=== PATIENT | male | born 1975 | race Two or more races ===

== ENCOUNTER 2017-12-17 16:22 | Inpatient (IN) | payer OTHER ==
[2017-12-17 17:15] VITALS: BMI 49.1
--- NOTE | 2017-12-17 20:52 | HP ---
CIWA Score - CIWA Score Nausea/Vomitin-No Nausea/No Vomiting Muscle Tremors: 4-Moderate,w/Arms Extend Anxiety: 2 Agitation: 3 Paroxysmal Sweats: 3 Orientation: 0-Oriented (both lower extremities) Tacttile Disturbances: 2-Mild Itch/Numbness/Burn Auditory Disturbances: 0-None Visual Disturbances: 0-None Headache: 2-Mild CIWA-Ar Total Score: 16 Admission ROS BHS - HPI Chief Complaint: alcohol withdrawal symptoms Allergies/Adverse Reactions: Allergies Allergy/AdvReac Type Severity Reaction Status Date / Time No Known Allergies Allergy Verified 10/09/12 13:10 History of Present Illness: 42 yo male with hx of nicotine, heroin (IV), cocaine and alcohol dependence is here seeking detox. Last detox [place] one month ago[facility] [id number] on methadone 90 mg, last medicated yesterday dose pending verification. Patient was at [facility] 12/16/17 and left AMA. PMHX: HTN, asthma, DM II (oral) meds. Denies any psychiatric history. Denies suicidal / homicidal ideation. Longest period sobriety 27 months. Denies any legal troubles at this time. Exam Limitations: No Limitations - Ebola screening Have you traveled outside of the country in the last 21 days: No (N) Have you had contact with anyone from an Ebola affected area: No Have you been sick,other than usual withdrawal symptoms: No Do you have a fever: No - Review of Systems Constitutional: Chills, Diaphoresis, Changes in sleep, Other (weight gain +30 lbs over two months) EENT: reports: No Symptoms Reported Respiratory: reports: See HPI, SOB with Exertion Cardiac: reports: No Symptoms Reported (lower extremity edema), Other GI: reports: Constipated (last BM two days), Poor Fluid Intake : reports: Frequency Musculoskeletal: reports: Back Pain Integumentary: reports: No Symptoms Reported Neuro: reports: Numbness (both lower extremities), Unsteady Gait (uses cane for ambualtion) Endocrine: reports: See HPI, Increased Thirst Hematology: reports: No Symptoms Reported Psychiatric: reports: Orientated x3, Anxious Other Systems: Reviewed and Negative Patient History - Patient Medical History Hx Anemia: No Hx Asthma: Yes (albuterol) Hx Chronic Obstructive Pulmonary Disease (COPD): No Hx Cancer: No Hx Cardiac Disorders: No Hx Congestive Heart Failure: No Hx Hypertension: Yes (on meds) Hx Hypercholesterolemia: No Hx Pacemaker: No HX Cerebrovascular Accident: No Hx Seizures: No Hx Dementia: No Hx Diabetes: Yes (on metformin ) Hx Gastrointestinal Disorders: No Hx Liver Disease: No Hx Genitourinary Disorders: No Hx Sexually Transmitted Disorders: No Hx Renal Disease (ESRD): No Hx Thyroid Disease: No Hx Human Immunodeficiency Virus (HIV): No (last tested one month with negative results ) Hx Hepatitis C: Yes (second. to iv use of cocaine and heroin ) Hx Depression: No Hx Suicide Attempt: No Hx Bipolar Disorder: No Hx Schizophrenia: No - Patient Surgical History Past Surgical History: No Hx Neurologic Surgery: No Hx Cataract Extraction: No Hx Cardiac Surgery: No Hx Lung Surgery: No Hx Breast Surgery: No Hx Breast Biopsy: No Hx Abdominal Surgery: No Hx Appendectomy: No Hx Cholecystectomy: No Hx Genitourinary Surgery: No Hx Section: No Hx Orthopedic Surgery: No Anesthesia Reaction: No - PPD History Previous Implant?: No Documented Results: Negative w/proof Date: 10/06/12 Results: 0 mm PPD to be Administered?: Yes - Smoking Cessation Smoking history: Current every day smoker Have you smoked in the past 12 months: Yes Aproximately how many cigarettes per day: 20 Cigars Per Day: 0 Hx Chewing Tobacco Use: No Initiated information on smoking cessation: Yes 'Breaking Loose' booklet given: 12/17/17 - Substance & Tx. History Hx Alcohol Use: Yes Hx Substance Use: Yes Substance Use Type: Alcohol, Cocaine, Heroin Hx Substance Use Treatment: Yes ([facility] one month ago.) - Substances Abused heroin Route: Injection Frequency: Daily Amount used: 1 bundle Age of first use: 27 Date of Last Use: 12/17/17 Alcohol Route: Oral Frequency: Daily Amount used: one fifth liquor + 3 x 24 oz malt liquor Age of first use: 18 Date of Last Use: 12/17/17 Cocaine Route: Smoking Frequency: Daily Amount used: $100 Age of first use: 27 Date of Last Use: 12/17/17 Family Disease History - Family Disease History Family Disease History: Diabetes: Mother (diabetes), Heart Disease: Father ( stroke) Admission Physical Exam BHS - Vital Signs Vital Signs: Vital Signs - 24 hr 10/01/18 17:13 Temperature 97.6 F Pulse Rate 84 Respiratory 18 Rate Blood Pressure 141/87 - Physical General Appearance: Yes: Disheveled, Mild Distress, Obese, Sweating, Anxious HEENTM: Yes: EOMI, Hearing grossly Normal, Normal ENT Inspection, Normocephalic , Normal Voice, GALLO, Pharynx Normal, Tm's normal Respiratory: Yes: Chest Non-Tender, Lungs Clear, Normal Breath Sounds, No Respiratory Distress, No Accessory Muscle Use Neck: Yes: Within Normal Limits Breast: Yes: Breast Exam Deferred Cardiology: Yes: Regular Rhythm, Regular Rate Abdominal: Yes: Normal Bowel Sounds, Non Tender, Soft, Protuberent Genitourinary: Yes: Within Normal Limits Back: Yes: Normal Inspection Musculoskeletal: Yes: full range of Motion, Pelvis Stable, Back pain, Other ( uses caen for ambulation) Extremities: Yes: Normal Capillary Refill, Normal Inspection, Normal Range of Motion, Non-Tender Neurological: Yes: safety fire boss II-XII NML intact, Fully Oriented, Alert, Motor Strength 5/5, Normal Response, Depressed Affect Integumentary: Yes: Normal Color, Warm, Diaphoresis Lymphatic: Yes: Within Normal Limits - Diagnostic (1) Alcohol dependence with withdrawal Current Visit: Yes Status: Acute Qualifiers: Complication of substance-induced condition: uncomplicated Qualified Code(s ): F10.230 - Alcohol dependence with withdrawal, uncomplicated (2) Opioid dependence on agonist therapy Current Visit: Yes Status: Chronic Comment: on MMTP methdone 90 mg dose pending verification (3) Cocaine dependence Current Visit: Yes Status: Acute Qualifiers: Substance use status: uncomplicated Qualified Code(s): F14.20 - Cocaine dependence, uncomplicated (4) Diabetes mellitus type 2 in obese Current Visit: Yes Status: Chronic (5) Use of cane as ambulatory aid Current Visit: Yes Status: Chronic (6) Hypertension Current Visit: Yes Status: Chronic Qualifiers: Hypertension type: essential hypertension Qualified Code(s): I10 - Essential (primary) hypertension (7) Acid reflux Current Visit: Yes Status: Chronic Qualifiers: Esophagitis presence: without esophagitis Qualified Code(s): K21.9 - Gastro -esophageal reflux disease without esophagitis (8) Insomnia Current Visit: Yes Status: Chronic Qualifiers: Insomnia type: unspecified Qualified Code(s): G47.00 - Insomnia, unspecified Comment: on trazadone 50 mg HS Cleared for Admission [facility] - Detox or Rehab [facility] Level of Care: Medically Managed Detox Regimen/Protocol: Librium [facility] Breath Alcohol Content Breath Alcohol Content: 0 Urine Drug Screen - Results Drug Screen Negative: No Urine Drug Screen Results: PARUL-Cocaine, OPI-Opiates, BZO-Benzodiazepines, FEN- Fentanyl
[2017-12-17] MEDS ORDERED: LOPERAMIDE HCL 2 MG CAPSULE PO PRN (21:00)
[2017-12-17] MEDS ORDERED: guaiFENesin/D-METHORPHAN HB 10 ML UNIT-DOSE CUPS PO PRN (21:00)
[2017-12-17] MEDS ORDERED: MENTHOL/PHENOL 1 EACH UD MM PRN (21:00)
[2017-12-17] MEDS ORDERED: NICOTINE POLACRILEX 2 MG GUM BC PRN (21:00)
[2017-12-17] MEDS ORDERED: MAGNESIUM CITRATE 300 ML BOTTLE PO PRN (21:00)
[2017-12-17] MEDS ORDERED: IBUPROFEN 400 MG TABLET (FP) PO PRN (21:00)
[2017-12-17] MEDS ORDERED: hydrOXYzine PAMOATE 50 MG CAPSULE (FP) PO PRN (21:00)
[2017-12-17] MEDS ORDERED: P-EPHED 60MG/TRIPROLIDI 2.5MG TABLET PO PRN (21:00)
[2017-12-17] MEDS ORDERED: MAGNESIUM HYDROX 2400MG/30ML ORAL SUSPENSION 30 ML CUP PO PRN (21:00)
[2017-12-17] MEDS ORDERED: ACETAMINOPHEN 325 MG TABLET (FP) PO PRN (21:00)
[2017-12-17] MEDS ORDERED: chlordiazePOXIDE HCL 25 MG CAPSULE PO PRN (21:00)
[2017-12-17] MEDS ORDERED: MAG HYDROX/AL HYDROX/SIMETH 30 ML UNIT-DOSE CUP PO PRN (21:00)
[2017-12-17] MEDS ORDERED: ALBUTEROL SO4 8 GM HFA INHALER IH PRN (21:17)
[2017-12-17] MEDS ORDERED: MELATONIN 5 MG TABLETS PO PRN (22:00)
[2017-12-17] MEDS: chlordiazePOXIDE HCL 25 MG CAPSULE PO SCH (22:34)
[2017-12-17] MEDS: THIAMINE HCL 100 MG TABLET (FP) PO SCH (22:34)
[2017-12-18] MEDS: chlordiazePOXIDE HCL 25 MG CAPSULE PO SCH ×4 (05:22→22:46)
[2017-12-18] MEDS: metFORMIN HCL 500 MG TABLET (FP) PO SCH ×2 (07:52→17:30)
[2017-12-18] MEDS ORDERED: METHADONE HCL 10 MG TABLET PO ONE (08:39)
[2017-12-18] MEDS ORDERED: METHADONE 80 MG, METHADONE 10 MG PO ONE (09:00)
[2017-12-18] MEDS ORDERED: METHADONE HCL 40 MG DISPERSABLE TABLET ONE (10:03)
[2017-12-18] MEDS ORDERED: METHADONE HCL 10 MG TABLET ONE (10:04)
[2017-12-18] MEDS: DOCUSATE SODIUM 100 MG CAPSULE (FP) PO SCH (10:05)
[2017-12-18] MEDS: LISINOPRIL 20 MG TABLET (FP) PO SCH (10:05)
[2017-12-18] MEDS: PRENATAL VITAMINS W/ FOLIC ACID TABLET (FP) PO SCH (10:05)
[2017-12-18] MEDS: PANTOPRAZOLE 40 MG TABLET (FP) PO SCH (10:05)
[2017-12-18] MEDS: NICOTINE 21 MG/24 HOURS TOPICAL PATCH TD SCH (10:06)
[2017-12-18 10:27] LABS: HEMATOCRIT 38.7 % (35.4-49); HEMOGLOBIN 12.9 GM/dL (11.7-16.9); MCH 29.7 pg (25.7-33.7); MCHC 33.3 g/dl (32.0-35.9); MEAN CELL VOLUME 89.2 fl (80-96); MEAN PLT VOLUME 8.7 fl (7.5-11.1); PLATELET COUNT 156 K/MM3 (134-434); RBC 4.34 M/mm3 (4.00-5.60); RDW 12.9 % (11.9-15.9); WHITE BLOOD COUNT 7.5 K/mm3 (4.0-10.0)
--- NOTE | 2017-12-18 10:44 | PN ---
S CIWA - CIWA Score Nausea/Vomitin-No Nausea/No Vomiting Muscle Tremors: 4-Moderate,w/Arms Extend Anxiety: 3 Agitation: 3 Paroxysmal Sweats: 3 Orientation: 0-Oriented Tacttile Disturbances: 0-None Auditory Disturbances: 0-None Visual Disturbances: 0-None Headache: 0-None Present CIWA-Ar Total Score: 13 BHS Progress Note (SOAP) Subjective: sweats shakes interrupted sleep agitation irritable Objective: 12/18/17 10:43 Vital Signs Temperature 97.9 F 12/18/17 09:13 Pulse Rate 88 12/18/17 09:13 Respiratory Rate 18 12/18/17 09:13 Blood Pressure 132/81 12/18/17 09:13 O2 Sat by Pulse Oximetry (%) Laboratory Tests 12/17/17 12/18/17 12/18/17 21:43 05:20 07:30 WBC 7.5 RBC 4.34 Hgb 12.9 Hct 38.7 MCV 89.2 MCH 29.7 MCHC 33.3 RDW 12.9 Plt Count 156 MPV 8.7 D POC Glucometer 103 146 rest of labs pending aaox3 ambulating no acute distress Assessment: 12/18/17 10:43 withdrawal sx Plan: continue detox increase fluids labs pending
[2017-12-18 10:59] LABS: ALBUMIN 3.2 g/dl (3.4-5.0); ALK PHOS 101 U/L (45-117); ANION GAP 11 MMOL/L (8-16); BILIRUBIN,TOTAL 0.5 mg/dL (0.2-1); BLOOD UREA NITROGEN 17 mg/dL (7-18); CALCIUM 9.1 mg/dL (8.5-10.1); CHLORIDE 100 mmol/L (98-107); CO2 29 mmol/L (21-32); CREATININE 0.8 mg/dL (0.55-1.3); GLUCOSE,RANDOM 134 mg/dL (74-106); SGOT/AST 51 U/L (15-37); SGPT/ALT 60 U/L (13-61); SODIUM 140 mmol/L (136-145); TOT PROT 7.4 g/dl (6.4-8.2)
--- NOTE | 2017-12-18 11:06 | EKG ---
Test Reason : Blood Pressure : / mmHG Vent. Rate : 087 BPM Atrial Rate : 087 BPM P-R Int : 152 ms QRS Dur : 092 ms QT Int : 390 ms P-R-T Axes : 072 017 034 degrees QTc Int : 469 ms NORMAL SINUS RHYTHM NORMAL ECG NO PREVIOUS ECGS AVAILABLE Confirmed by Neo Loyd MD ([id number]) on 12/18/2017 11:06:25 AM Referred By: Confirmed By:Neo Loyd MD
[2017-12-18] MEDS: NIFEdipine E.R 60 MG TABLET (UD) PO SCH (11:30)
[2017-12-18 18:07] LABS: URINE APPEARANCE CLEAR; URINE BILIRUBIN NEGATIVE (<2.0 mg/dL); URINE COLOR YELLOW; URINE GLUCOSE (UA) NEGATIVE (NEGATIVE); URINE KETONE NEGATIVE (NEGATIVE); URINE LEUK ESTERASE NEGATIVE (NEGATIVE); URINE NITRITE NEGATIVE (NEGATIVE); URINE UROBILINOGEN 4.0 E.U/dl mg/dL (0.2-1.0)
[2017-12-18 18:16] LABS: URINE PROTEIN 3+ (NEGATIVE)
[2017-12-18 19:40] LABS: EPI CELLS RARE /HPF (FEW)
[2017-12-18] MEDS: THIAMINE HCL 100 MG TABLET (FP) PO SCH (22:47)
[2017-12-19] MEDS ORDERED: METHADONE HCL 40 MG DISPERSABLE TABLET ONE (04:03)
[2017-12-19] MEDS ORDERED: METHADONE HCL 10 MG TABLET ONE (04:03)
[2017-12-19] MEDS: chlordiazePOXIDE HCL 25 MG CAPSULE PO SCH ×3 (05:40→17:37)
[2017-12-19] MEDS: METHADONE 80 MG, METHADONE 10 MG PO SCH (05:41)
[2017-12-19] MEDS ORDERED: METHADONE HCL 40 MG DISPERSABLE TABLET PO SCH (06:00)
[2017-12-19] MEDS: metFORMIN HCL 500 MG TABLET (FP) PO SCH ×2 (07:00→17:30)
[2017-12-19] MEDS: NICOTINE 21 MG/24 HOURS TOPICAL PATCH TD SCH (10:41)
[2017-12-19] MEDS: PANTOPRAZOLE 40 MG TABLET (FP) PO SCH (10:41)
[2017-12-19] MEDS: LISINOPRIL 20 MG TABLET (FP) PO SCH (10:41)
[2017-12-19] MEDS: PRENATAL VITAMINS W/ FOLIC ACID TABLET (FP) PO SCH (10:41)
[2017-12-19] MEDS: DOCUSATE SODIUM 100 MG CAPSULE (FP) PO SCH (10:41)
[2017-12-19] MEDS: NIFEdipine E.R 60 MG TABLET (UD) PO SCH (10:44)
--- NOTE | 2017-12-19 13:15 | PN ---
S CIWA - CIWA Score Nausea/Vomitin-Mild Nausea/No Vomiting Muscle Tremors: 3 Anxiety: 2 Agitation: 2 Paroxysmal Sweats: 1-Minimal Palms Moist Orientation: 0-Oriented Tacttile Disturbances: 1-Very Mild Itch/Numbness Auditory Disturbances: 1-Very Mild Visual Disturbances: 0-None Headache: 0-None Present CIWA-Ar Total Score: 11 BHS Progress Note (SOAP) Subjective: sweat tremor diarrhea anxiety restlessness Objective: 12/19/17 13:14 Vital Signs Temperature 98.2 F 12/19/17 12:56 Pulse Rate 88 12/19/17 12:56 Respiratory Rate 18 12/19/17 12:56 Blood Pressure 138/76 12/19/17 12:56 O2 Sat by Pulse Oximetry (%) Laboratory Last Values WBC 7.5 K/mm3 (4.0-10.0) 12/18/17 07:30 RBC 4.34 M/mm3 (4.00-5.60) 12/18/17 07:30 Hgb 12.9 GM/dL (11.7-16.9) 12/18/17 07:30 Hct 38.7 % (35.4-49) 12/18/17 07:30 MCV 89.2 fl (80-96) 12/18/17 07:30 MCH 29.7 pg (25.7-33.7) 12/18/17 07:30 MCHC 33.3 g/dl (32.0-35.9) 12/18/17 07:30 RDW 12.9 % (11.9-15.9) 12/18/17 07:30 Plt Count 156 K/MM3 (134-434) 12/18/17 07:30 MPV 8.7 fl (7.5-11.1) D 12/18/17 07:30 Sodium 140 mmol/L (136-145) 12/18/17 07:30 Potassium 4.0 mmol/L (3.5-5.1) 12/18/17 07:30 Chloride 100 mmol/L (98-107) 12/18/17 07:30 Carbon Dioxide 29 mmol/L (21-32) 12/18/17 07:30 Anion Gap 11 MMOL/L (8-16) 12/18/17 07:30 BUN 17 mg/dL (7-18) 12/18/17 07:30 Creatinine 0.8 mg/dL (0.55-1.3) 12/18/17 07:30 Creat Clearance w eGFR > 60 (>60) 12/18/17 07:30 POC Glucometer 123 UNITS (80-120) 12/19/17 05:43 Random Glucose 134 mg/dL (74-106) H 12/18/17 07:30 Calcium 9.1 mg/dL (8.5-10.1) 12/18/17 07:30 Total Bilirubin 0.5 mg/dL (0.2-1) 12/18/17 07:30 AST 51 U/L (15-37) H 12/18/17 07:30 ALT 60 U/L (13-61) 12/18/17 07:30 Alkaline Phosphatase 101 U/L (45-117) 12/18/17 07:30 Total Protein 7.4 g/dl (6.4-8.2) 12/18/17 07:30 Albumin 3.2 g/dl (3.4-5.0) L 12/18/17 07:30 Urine Color Yellow 12/18/17 16:30 Urine Appearance Clear 12/18/17 16:30 Urine pH 6.0 (5.0-8.0) 12/18/17 16:30 Ur Specific [place] 1.025 (1.001-1.035) 12/18/17 16:30 Urine Protein 3+ (NEGATIVE) H 12/18/17 16:30 Urine Glucose (UA) Negative (NEGATIVE) 12/18/17 16:30 Urine Ketones Negative (NEGATIVE) 12/18/17 16:30 Urine Blood Negative (NEGATIVE) 12/18/17 16:30 Urine Nitrite Negative (NEGATIVE) 12/18/17 16:30 Urine Bilirubin Negative (<2.0 mg/dL) 12/18/17 16:30 Urine Urobilinogen 4.0 e.u/dl mg/dL (0.2-1.0) 12/18/17 16:30 Ur Leukocyte Esterase Negative (NEGATIVE) 12/18/17 16:30 Urine WBC (Auto) 1 /hpf (3-5) 12/18/17 16:30 Urine RBC (Auto) <1 /hpf (0-3) 12/18/17 16:30 Ur Epithelial Cells Rare /HPF (FEW) 12/18/17 16:30 RPR Titer Nonreactive (NONREACTIVE) 12/18/17 07:30 HIV 1&2 Antibody Screen Negative 12/18/17 07:30 HIV P24 Antigen Negative 12/18/17 07:30 lab noted Assessment: 12/19/17 13:15 withdrawal sx Plan: continue detox
--- NOTE | 2017-12-19 14:38 | CONSULT ---
[facility] Psychiatric Consult - Data Date of interview: 12/19/17 Admission source: [facility] Identifying data: Patient is a 42 year old single male, without children, unemployed, and currently homeless. This is one of multiple admissions for patient. Patient admitted to for alcohol and opiate dependence. Substance Abuse History: Smoking Cessation. Smoking history: Current every day smoker. Have you smoked in the past 12 months: Yes. Aproximately how many cigarettes per day: 20. Cigars Per Day: 0. Hx Chewing Tobacco Use: No. Initiated information on smoking cessation: Yes. 'Breaking Loose' booklet given : 12/17/17. - Substance & Tx. History. Hx Alcohol Use: Yes. Hx Substance Use : Yes. Substance Use Type: Alcohol, Cocaine, Heroin. Hx Substance Use Treatment: Yes ([facility] [place] one month ago.). - Substances Abused. heroin. Route: Injection. Frequency: Daily. Amount used: 1 bundle. Age of first use: 27. Date of Last Use: 12/17/17. Alcohol. Route: Oral. Frequency: Daily. Amount used: one fifth liquor + 3 x 24 oz malt liquor. Age of first use: 18. Date of Last Use: 12/17/17. Cocaine. Route: Smoking. Frequency: Daily. Amount used: $100. Age of first use: 27. Date of Last Use: 12/17/17 Medical History: Asthma, hypertension, diabetes, Hep C Psychiatric History: Patient reports two psychiatric hospitalizations in [facility] (). The first hospitalization was as a teenager due to aggressive behavior and the second hospitalization was due to a suicide attempt via overdose. Most recent Outpatient psychiatric care was two years ago. Patient is currently prescribed trazodone 50mg by his primary care physician. He is also on methadone maintenance of 90mg daily. Patient reports poor sleep. Physical/Sexual Abuse/Trauma History: denies. Mental Status Exam - Mental Status Exam Alert and Oriented to: Time, Place, Person Cognitive Function: Good Patient Appearance: Well Groomed Mood: Hopeful, Euthymic Affect: Mood Congruent Patient Behavior: Appropriate, Cooperative Speech Pattern: Clear, Appropriate Voice Loudness: Normal Thought Process: Intact, Goal Oriented Hallucinations: Denies Suicidal Ideation: Denies Homicidal Ideation: Denies Insight/Judgement: Poor Sleep: Poorly Appetite: Fair Muscle strength/Tone: Normal Psychiatric Findings - Problem List ([place] 1, 2,3) (1) Cocaine dependence Current Visit: Yes Status: Acute Qualifiers: Substance use status: uncomplicated Qualified Code(s): F14.20 - Cocaine dependence, uncomplicated (2) Alcohol dependence with withdrawal Current Visit: Yes Status: Acute Qualifiers: Complication of substance-induced condition: uncomplicated Qualified Code(s ): F10.230 - Alcohol dependence with withdrawal, uncomplicated (3) Insomnia Current Visit: Yes Status: Acute Qualifiers: Insomnia type: unspecified Qualified Code(s): G47.00 - Insomnia, unspecified Comment: on trazadone 50 mg HS (4) Opioid dependence on agonist therapy Current Visit: Yes Status: Chronic Comment: on MMTP methdone 90 mg dose pending verification - Initial Treatment Plan Initial Treatment Plan: Psychoeducation provided. Detoxification in progress. Trazodone 50mg qhs. Benefits and side effects discussed. Verbal consent given.
[2017-12-19] MEDS ORDERED: traZODone HCL 50 MG TABLET (FP) PO SCH (22:00)
[2017-12-19] MEDS: THIAMINE HCL 100 MG TABLET (FP) PO SCH (22:36)
[2017-12-19] MEDS: chlordiazePOXIDE 5 MG CAPSULE PO SCH (22:36)
[2017-12-20] MEDS ORDERED: METHADONE HCL 40 MG DISPERSABLE TABLET ONE (04:30)
[2017-12-20] MEDS ORDERED: METHADONE HCL 10 MG TABLET ONE (04:31)
[2017-12-20] MEDS: METHADONE 80 MG, METHADONE 10 MG PO SCH (05:36)
[2017-12-20] MEDS: chlordiazePOXIDE 5 MG CAPSULE PO SCH ×2 (05:36→10:11)
[2017-12-20] MEDS: metFORMIN HCL 500 MG TABLET (FP) PO SCH (06:39)
--- NOTE | 2017-12-20 09:18 | DS ---
[facility] Detox Discharge Summary Admission Date: 12/17/17 Discharge Date: 12/20/17 - History Present History: Alcohol Dependence Additional Comments: 42 years old make admitted on 12/17/17 for alcohol withdrawal sx reported feeling better that had 17 years of sobriety current relapse x months wants to begin recovery process today multidisciplinary team met and discussed with the patient that opportunity at [facility] patient agrees [facility] - Physical Exam Results Vital Signs: Vital Signs Temperature 98.2 F 12/20/17 09:12 Pulse Rate 94 H 12/20/17 09:12 Respiratory Rate 18 12/20/17 09:12 Blood Pressure 150/95 12/20/17 09:12 O2 Sat by Pulse Oximetry (%) Pertinent Admission Physical Exam Findings: alcohol withdrawal sx Vital Signs Temperature 98.2 F 12/20/17 09:12 Pulse Rate 94 H 12/20/17 09:12 Respiratory Rate 18 12/20/17 09:12 Blood Pressure 150/95 12/20/17 09:12 O2 Sat by Pulse Oximetry (%) Laboratory Last Values WBC 7.5 K/mm3 (4.0-10.0) 12/18/17 07:30 RBC 4.34 M/mm3 (4.00-5.60) 12/18/17 07:30 Hgb 12.9 GM/dL (11.7-16.9) 12/18/17 07:30 Hct 38.7 % (35.4-49) 12/18/17 07:30 MCV 89.2 fl (80-96) 12/18/17 07:30 MCH 29.7 pg (25.7-33.7) 12/18/17 07:30 MCHC 33.3 g/dl (32.0-35.9) 12/18/17 07:30 RDW 12.9 % (11.9-15.9) 12/18/17 07:30 Plt Count 156 K/MM3 (134-434) 12/18/17 07:30 MPV 8.7 fl (7.5-11.1) D 12/18/17 07:30 Sodium 140 mmol/L (136-145) 12/18/17 07:30 Potassium 4.0 mmol/L (3.5-5.1) 12/18/17 07:30 Chloride 100 mmol/L (98-107) 12/18/17 07:30 Carbon Dioxide 29 mmol/L (21-32) 12/18/17 07:30 Anion Gap 11 MMOL/L (8-16) 12/18/17 07:30 BUN 17 mg/dL (7-18) 12/18/17 07:30 Creatinine 0.8 mg/dL (0.55-1.3) 12/18/17 07:30 Creat Clearance w eGFR > 60 (>60) 12/18/17 07:30 POC Glucometer 166 UNITS (80-120) 12/20/17 05:39 Random Glucose 134 mg/dL (74-106) H 12/18/17 07:30 Calcium 9.1 mg/dL (8.5-10.1) 12/18/17 07:30 Total Bilirubin 0.5 mg/dL (0.2-1) 12/18/17 07:30 AST 51 U/L (15-37) H 12/18/17 07:30 ALT 60 U/L (13-61) 12/18/17 07:30 Alkaline Phosphatase 101 U/L (45-117) 12/18/17 07:30 Total Protein 7.4 g/dl (6.4-8.2) 12/18/17 07:30 Albumin 3.2 g/dl (3.4-5.0) L 12/18/17 07:30 Urine Color Yellow 12/18/17 16:30 Urine Appearance Clear 12/18/17 16:30 Urine pH 6.0 (5.0-8.0) 12/18/17 16:30 Ur Specific [place] 1.025 (1.001-1.035) 12/18/17 16:30 Urine Protein 3+ (NEGATIVE) H 12/18/17 16:30 Urine Glucose (UA) Negative (NEGATIVE) 12/18/17 16:30 Urine Ketones Negative (NEGATIVE) 12/18/17 16:30 Urine Blood Negative (NEGATIVE) 12/18/17 16:30 Urine Nitrite Negative (NEGATIVE) 12/18/17 16:30 Urine Bilirubin Negative (<2.0 mg/dL) 12/18/17 16:30 Urine Urobilinogen 4.0 e.u/dl mg/dL (0.2-1.0) 12/18/17 16:30 Ur Leukocyte Esterase Negative (NEGATIVE) 12/18/17 16:30 Urine WBC (Auto) 1 /hpf (3-5) 12/18/17 16:30 Urine RBC (Auto) <1 /hpf (0-3) 12/18/17 16:30 Ur Epithelial Cells Rare /HPF (FEW) 12/18/17 16:30 RPR Titer Nonreactive (NONREACTIVE) 12/18/17 07:30 HIV 1&2 Antibody Screen Negative 12/18/17 07:30 HIV P24 Antigen Negative 12/18/17 07:30 lab noted - Treatment Hospital Course: Detox Protocol Followed, Detoxed Safely, Responded well, Discharged Condition Good, Rehab Referral Accepted Patient has Accepted a Rehab Referral to: [facility] - Medication Discharge Medications: Ambulatory Orders Albuterol Sulfate Inhaler - [Ventolin HFA Inhaler -] 2 inh IH Q4H PRN 12/17/17 Docusate Sodium [Colace] 100 mg PO DAILY 12/17/17 Lisinopril [Prinivil] 40 mg PO DAILY 12/17/17 Metformin HCl [Glucophage] 1,000 mg PO BID 12/17/17 Nifedipine ER [Procardia XL -] 60 mg PO DAILY 12/17/17 Pantoprazole Sodium 40 mg PO DAILY 12/17/17 traZODone HCL [Trazodone HCl] 50 mg PO HS 12/17/17 - Diagnosis (1) History of diabetes mellitus Current Visit: Yes Status: Resolved (2) Alcohol dependence with withdrawal Current Visit: Yes Status: Acute Qualifiers: Complication of substance-induced condition: uncomplicated Qualified Code(s ): F10.230 - Alcohol dependence with withdrawal, uncomplicated (3) Acid reflux Current Visit: Yes Status: Chronic Qualifiers: Esophagitis presence: without esophagitis Qualified Code(s): K21.9 - Gastro -esophageal reflux disease without esophagitis (4) Hypertension Current Visit: Yes Status: Chronic Qualifiers: Hypertension type: essential hypertension Qualified Code(s): I10 - Essential (primary) hypertension (5) Use of cane as ambulatory aid Current Visit: Yes Status: Chronic (6) Opioid dependence on agonist therapy Current Visit: Yes Status: Chronic - AMA Did Patient Leave Against Medical Advice: No
[2017-12-20] MEDS: NICOTINE 21 MG/24 HOURS TOPICAL PATCH TD SCH (10:11)
[2017-12-20] MEDS: PRENATAL VITAMINS W/ FOLIC ACID TABLET (FP) PO SCH (10:11)
[2017-12-20] MEDS: LISINOPRIL 20 MG TABLET (FP) PO SCH (10:11)
[2017-12-20] MEDS: PANTOPRAZOLE 40 MG TABLET (FP) PO SCH (10:11)
[2017-12-20] MEDS: DOCUSATE SODIUM 100 MG CAPSULE (FP) PO SCH (10:11)
[2017-12-20] MEDS: NIFEdipine E.R 60 MG TABLET (UD) PO SCH (12:01)
[2017-12-20 13:35] VITALS: BP 142/87; PULSE 88; TEMP 98.6
[2017-12-20] MEDS ORDERED: chlordiazePOXIDE HCL 10 MG CAPSULE PO SCH (23:00)
== END 2017-12-20 13:30 | disposition other institution (70) | DRG 773 ==
LOC: YASAS 16:22 → Y6N 21:25
PROC: HZ2ZZZZ Detoxification Services for Substance Abuse Treatment (ICD-10-PCS; principal; 2017-12-17)
DX: F10.230 Alcohol dependence with withdrawal, uncomplicated (principal); F14.20 Cocaine dependence, uncomplicated; F11.20 Opioid dependence, uncomplicated; G47.00 Insomnia, unspecified; B18.2 Chronic viral hepatitis C; I10 Essential (primary) hypertension; E11.9 Type 2 diabetes mellitus without complications; Z79.84 Long term (current) use of oral hypoglycemic drugs; R26.89 Other abnormalities of gait and mobility; Z99.89 Dependence on other enabling machines and devices
CPT/HCPCS: 36415; 80053; 81003; 81015; 82962; 85027; 86593; 87389; 93005; 93010

== ENCOUNTER 2017-12-20 13:41 | Inpatient (IN) | payer OTHER ==
--- NOTE | 2017-12-20 10:45 | HP ---
[facility] Rehab Assess/Revision - Admission History Admitted to Rehab from: [facility] Date of Admission to Rehab: 12/20/17 - Findings Detox History & Physical reviewed: Yes Concur with findings: Yes Comments/Additional Findings: transferred from detox to rehab admission as per protocol Inpatient Rehab Admission - Initial Determination Are CD services needed?: Yes Free of communicable disease: Yes Not in need of hospitalization: Yes - Rehab Admission Criteria Previous failed treatment: Yes Poor recovery environment: Yes Comorbidities: Yes Lacks judgement: No Patient is meeting Inpatient Rehab admission criteria:: Yes
[~2017-12-20 13:41] MED LIST: ALBUTEROL SO4 8 GM HFA INHALER IH PRN; LOPERAMIDE HCL 2 MG CAPSULE PO PRN; MAG HYDROX/AL HYDROX/SIMETH 30 ML UNIT-DOSE CUP PO PRN; MENTHOL/PHENOL 1 EACH UD MM PRN; NICOTINE POLACRILEX 2 MG GUM BUC PRN; P-EPHED 60MG/TRIPROLIDI 2.5MG TABLET PO PRN; guaiFENesin/D-METHORPHAN HB 10 ML UNIT-DOSE CUPS PO PRN
[2017-12-20] MEDS: metFORMIN HCL 500 MG TABLET (FP) PO SCH (17:01)
[2017-12-20] MEDS: MELATONIN 5 MG TABLETS PO PRN (21:45)
[2017-12-20] MEDS: THIAMINE HCL 100 MG TABLET (FP) PO SCH (21:45)
[2017-12-20] MEDS: IBUPROFEN 400 MG TABLET (FP) PO PRN (21:45)
[2017-12-21] MEDS ORDERED: METHADONE HCL 10 MG TABLET ONE (04:41)
[2017-12-21] MEDS ORDERED: METHADONE HCL 40 MG DISPERSABLE TABLET ONE (04:41)
[2017-12-21] MEDS ORDERED: METHADONE HCL 40 MG DISPERSABLE TABLET PO SCH (06:00)
[2017-12-21] MEDS: metFORMIN HCL 500 MG TABLET (FP) PO SCH ×2 (06:39→16:36)
[2017-12-21] MEDS: METHADONE 80 MG, METHADONE 10 MG PO SCH (06:42)
--- NOTE | 2017-12-21 06:45 | HP ---
Psychiatrist Admission - Data Date of interview: 12/21/17 Admission source: [facility] Identifying data: This is the second [facility] Inpatient Rehabilitation admission for this 42 years old single male, father of a 18 years old son, unemployed on public assistance, homeless Medical History: Significant for bronchial asthma, hypertension, type 2 diabetes mellitus and hepatitis C. Patient is on methadone 90 mg/day. Smokes cigarettes 1 ppd Psychiatric History: Patient reports two psychiatric hospitalizations in [facility] () for depression. The first hospitalization was as a teenager due to aggressive behavior and the second hospitalization was due to a suicide attempt via overdose. Most recent Outpatient psychiatric care was two years ago. Patient is currently prescribed trazodone 50 mg by his primary care physician. He was seen by [facility] on 12/19/17 while in detox and was continued on his medication. Patient reports poor sleep. Physical/Sexual Abuse/Trauma History: Denies history ofemotional, physical or sexual abuse as well as DV relationship. No service Additional Comment: Reports history of 3-4 previous misdemeanor arrests Vital Signs: Vital Signs - 24 hr 12/21/17 12/21/17 00:30 03:30 Respiratory 18 20 Rate Allergies/Adverse Reactions: Allergies Allergy/AdvReac Type Severity Reaction Status Date / Time No Known Allergies Allergy Verified 12/17/17 21:41 Date of last physical exam: 12/17/17 - Substance Abuse/Tx History Hx Alcohol Use: Yes Hx Substance Use: Yes (Currently attends [facility]) Substance Use Type: Alcohol (Started drinking alcohol at age 18, consumes a fifth of liquor & 3x 24oz of malt liquor daily. Last drank on 12/17/17), Cocaine (Started smoking crack cocaine at age 27, consumes $100 worth daily. Last smoked on 12/17/17), Heroin (Started using heroin at age 27, consumes 10 bags daily. Last used on 12/17/17) Hx Substance Use Treatment: Yes (2 previous inpt detox & one inpt rehab admissions @ [facility]) Mental Status Exam - Mental Status Exam Alert and Oriented to: Time, Place, Person Cognitive Function: Fair Patient Appearance: Well Groomed Mood: Depressed Affect: Appropriate Speech Pattern: Clear Voice Loudness: Normal Thought Process: Intact, Goal Oriented Thought Disorder: Not Present Hallucinations: Denies Suicidal Ideation: Denies Homicidal Ideation: Denies Insight/Judgement: Fair Sleep: Poorly Appetite: Good Muscle strength/Tone: Normal Gait/Station: Normal Psychiatric Findings - Problem List ([place] 1, 2,3) (1) Alcohol dependence Current Visit: Yes Status: Acute (2) Cocaine dependence Current Visit: No Status: Acute Qualifiers: Substance use status: uncomplicated Qualified Code(s): F14.20 - Cocaine dependence, uncomplicated (3) Opioid dependence on agonist therapy Current Visit: No Status: Chronic Comment: on MMTP methdone 90 mg dose pending verification (4) Nicotine dependence Current Visit: Yes Status: Chronic (5) Substance induced mood disorder Current Visit: Yes Status: Acute (6) Substance-induced sleep disorder Current Visit: Yes Status: Acute (7) Diabetes mellitus type 2 in obese Current Visit: No Status: Chronic (8) Hypertension Current Visit: No Status: Chronic Qualifiers: Hypertension type: essential hypertension Qualified Code(s): I10 - Essential (primary) hypertension (9) Asthma Current Visit: Yes Status: Chronic (10) Hepatitis C Current Visit: Yes Status: Chronic - Initial Treatment Plan Initial Treatment Plan: 1) Continue Trazadone 50 mg po HS. 2) Monitor progress
[2017-12-21] MEDS: DOCUSATE SODIUM 100 MG CAPSULE (FP) PO SCH (10:27)
[2017-12-21] MEDS: NIFEdipine E.R 60 MG TABLET (UD) PO SCH (10:27)
[2017-12-21] MEDS: PRENATAL VITAMINS W/ FOLIC ACID TABLET (FP) PO SCH (10:27)
[2017-12-21] MEDS: PANTOPRAZOLE 40 MG TABLET (FP) PO SCH (10:27)
[2017-12-21] MEDS: LISINOPRIL 20 MG TABLET (FP) PO SCH (10:27)
[2017-12-21] MEDS: NICOTINE 14 MG/24 HOURS TOPICAL PATCH TD PRN (10:29)
[2017-12-21] MEDS ORDERED: FLU VACCINE QUAD 60 MCG/0.5 ML (MDV 18-19) IM ONE (12:00)
[2017-12-21] MEDS: traZODone HCL 50 MG TABLET (FP) PO SCH (21:02)
[2017-12-21] MEDS: THIAMINE HCL 100 MG TABLET (FP) PO SCH (21:02)
[2017-12-22] MEDS ORDERED: METHADONE HCL 10 MG TABLET ONE (04:03)
[2017-12-22] MEDS ORDERED: METHADONE HCL 40 MG DISPERSABLE TABLET ONE (04:03)
[2017-12-22] MEDS: metFORMIN HCL 500 MG TABLET (FP) PO SCH ×2 (06:41→17:00)
[2017-12-22] MEDS: METHADONE 80 MG, METHADONE 10 MG PO SCH (06:41)
[2017-12-22] MEDS: PRENATAL VITAMINS W/ FOLIC ACID TABLET (FP) PO SCH (09:54)
[2017-12-22] MEDS: NIFEdipine E.R 60 MG TABLET (UD) PO SCH (09:54)
[2017-12-22] MEDS: PANTOPRAZOLE 40 MG TABLET (FP) PO SCH (09:54)
[2017-12-22] MEDS: LISINOPRIL 20 MG TABLET (FP) PO SCH (09:54)
[2017-12-22] MEDS: DOCUSATE SODIUM 100 MG CAPSULE (FP) PO SCH (09:54)
[2017-12-22] MEDS: THIAMINE HCL 100 MG TABLET (FP) PO SCH (21:00)
[2017-12-22] MEDS: traZODone HCL 50 MG TABLET (FP) PO SCH (21:01)
[2017-12-23] MEDS: ACETAMINOPHEN 325 MG TABLET (FP) PO PRN (02:15)
[2017-12-23] MEDS ORDERED: METHADONE HCL 10 MG TABLET ONE (03:44)
[2017-12-23] MEDS ORDERED: METHADONE HCL 40 MG DISPERSABLE TABLET ONE (03:44)
[2017-12-23] MEDS: METHADONE 80 MG, METHADONE 10 MG PO SCH (06:45)
[2017-12-23] MEDS: metFORMIN HCL 500 MG TABLET (FP) PO SCH ×2 (06:47→18:13)
[2017-12-23] MEDS: NIFEdipine E.R 60 MG TABLET (UD) PO SCH (09:42)
[2017-12-23] MEDS: PANTOPRAZOLE 40 MG TABLET (FP) PO SCH (09:42)
[2017-12-23] MEDS: PRENATAL VITAMINS W/ FOLIC ACID TABLET (FP) PO SCH (09:42)
[2017-12-23] MEDS: DOCUSATE SODIUM 100 MG CAPSULE (FP) PO SCH (09:42)
[2017-12-23] MEDS: LISINOPRIL 20 MG TABLET (FP) PO SCH (09:42)
[2017-12-23] MEDS: MELATONIN 5 MG TABLETS PO PRN (21:19)
[2017-12-23] MEDS: THIAMINE HCL 100 MG TABLET (FP) PO SCH (21:19)
[2017-12-23] MEDS: traZODone HCL 50 MG TABLET (FP) PO SCH (21:19)
[2017-12-24] MEDS ORDERED: METHADONE HCL 10 MG TABLET ONE (05:54)
[2017-12-24] MEDS ORDERED: METHADONE HCL 40 MG DISPERSABLE TABLET ONE (05:55)
[2017-12-24] MEDS: metFORMIN HCL 500 MG TABLET (FP) PO SCH ×2 (06:39→17:05)
[2017-12-24] MEDS: METHADONE 80 MG, METHADONE 10 MG PO SCH (06:39)
[2017-12-24] MEDS: DOCUSATE SODIUM 100 MG CAPSULE (FP) PO SCH (10:05)
[2017-12-24] MEDS: PRENATAL VITAMINS W/ FOLIC ACID TABLET (FP) PO SCH (10:05)
[2017-12-24] MEDS: NIFEdipine E.R 60 MG TABLET (UD) PO SCH (10:05)
[2017-12-24] MEDS: LISINOPRIL 20 MG TABLET (FP) PO SCH (10:05)
[2017-12-24] MEDS: PANTOPRAZOLE 40 MG TABLET (FP) PO SCH (10:05)
[2017-12-24] MEDS: MAGNESIUM HYDROX 2400MG/30ML ORAL SUSPENSION 30 ML CUP PO PRN (10:08)
--- NOTE | 2017-12-24 12:13 | PN ---
[facility] Progress Note (SOAP) Subjective: c/o swelling of both feet. Was on hydrochlorothiazide 25 mg PO but did not mention when came in for treatment. Objective: A&O x3. BLE 1+ edema toe to below knee. Lungs CTA. 12/24/17 12:15 Vital Signs - 8 hr 12/24/17 12/24/17 07:00 09:30 Temperature 98 F Pulse Rate 83 105 H Respiratory 20 18 Rate Blood Pressure 150/82 169/98 Assessment: Morbidly obese. BLE edema. Asthma 12/24/17 12:19 Plan: Encourage to f/u w/ PCP and cardiology post discharge. Encourage elevation of feet while in bed. Encourage to monitor calorie intake. Start HCTZ 12.5 mg PO BID
[2017-12-24] MEDS: IBUPROFEN 400 MG TABLET (FP) PO PRN (13:09)
[2017-12-24] MEDS: ACETAMINOPHEN 325 MG TABLET (FP) PO PRN (17:06)
[2017-12-24] MEDS: HYDROCHLOROTHIAZIDE 12.5 MG CAPSULE (FP) PO SCH (18:26)
[2017-12-24] MEDS: THIAMINE HCL 100 MG TABLET (FP) PO SCH (22:07)
[2017-12-24] MEDS: MELATONIN 5 MG TABLETS PO PRN (22:07)
[2017-12-24] MEDS: traZODone HCL 50 MG TABLET (FP) PO SCH (22:07)
[2017-12-25] MEDS ORDERED: METHADONE HCL 40 MG DISPERSABLE TABLET ONE (06:12)
[2017-12-25] MEDS ORDERED: METHADONE HCL 10 MG TABLET ONE (06:12)
[2017-12-25] MEDS: METHADONE 80 MG, METHADONE 10 MG PO SCH (06:23)
[2017-12-25] MEDS: metFORMIN HCL 500 MG TABLET (FP) PO SCH ×2 (06:24→17:05)
[2017-12-25] MEDS: LISINOPRIL 20 MG TABLET (FP) PO SCH (09:38)
[2017-12-25] MEDS: NIFEdipine E.R 60 MG TABLET (UD) PO SCH (09:39)
[2017-12-25] MEDS: HYDROCHLOROTHIAZIDE 12.5 MG CAPSULE (FP) PO SCH ×2 (09:39→17:05)
[2017-12-25] MEDS: PANTOPRAZOLE 40 MG TABLET (FP) PO SCH (09:39)
[2017-12-25] MEDS: DOCUSATE SODIUM 100 MG CAPSULE (FP) PO SCH (09:39)
[2017-12-25] MEDS: PRENATAL VITAMINS W/ FOLIC ACID TABLET (FP) PO SCH (09:39)
[2017-12-25] MEDS: MAGNESIUM CITRATE 300 ML BOTTLE PO PRN (19:16)
[2017-12-25] MEDS: traZODone HCL 50 MG TABLET (FP) PO SCH (22:04)
[2017-12-25] MEDS: MELATONIN 5 MG TABLETS PO PRN (22:04)
[2017-12-25] MEDS: THIAMINE HCL 100 MG TABLET (FP) PO SCH (22:04)
[2017-12-26] MEDS ORDERED: METHADONE HCL 10 MG TABLET ONE (03:00)
[2017-12-26] MEDS ORDERED: METHADONE HCL 40 MG DISPERSABLE TABLET ONE (03:00)
[2017-12-26] MEDS: metFORMIN HCL 500 MG TABLET (FP) PO SCH ×2 (06:28→17:27)
[2017-12-26] MEDS: METHADONE 80 MG, METHADONE 10 MG PO SCH (06:28)
[2017-12-26] MEDS: HYDROCHLOROTHIAZIDE 12.5 MG CAPSULE (FP) PO SCH ×2 (10:17→17:27)
[2017-12-26] MEDS: PANTOPRAZOLE 40 MG TABLET (FP) PO SCH (10:17)
[2017-12-26] MEDS: LISINOPRIL 20 MG TABLET (FP) PO SCH (10:17)
[2017-12-26] MEDS: NIFEdipine E.R 60 MG TABLET (UD) PO SCH (10:17)
[2017-12-26] MEDS: PRENATAL VITAMINS W/ FOLIC ACID TABLET (FP) PO SCH (10:18)
[2017-12-26] MEDS: DOCUSATE SODIUM 100 MG CAPSULE (FP) PO SCH (10:18)
[2017-12-26] MEDS: NICOTINE 14 MG/24 HOURS TOPICAL PATCH TD PRN (10:20)
[2017-12-26] MEDS: MAGNESIUM CITRATE 300 ML BOTTLE PO PRN (18:15)
[2017-12-26] MEDS: traZODone HCL 50 MG TABLET (FP) PO SCH (21:34)
[2017-12-26] MEDS: THIAMINE HCL 100 MG TABLET (FP) PO SCH (21:34)
[2017-12-27] MEDS: ACETAMINOPHEN 325 MG TABLET (FP) PO PRN ×2 (02:46→11:16)
[2017-12-27] MEDS ORDERED: METHADONE HCL 10 MG TABLET ONE (03:17)
[2017-12-27] MEDS ORDERED: METHADONE HCL 40 MG DISPERSABLE TABLET ONE (03:17)
[2017-12-27] MEDS: METHADONE 80 MG, METHADONE 10 MG PO SCH (06:15)
[2017-12-27] MEDS: metFORMIN HCL 500 MG TABLET (FP) PO SCH ×2 (06:17→16:59)
[2017-12-27] MEDS: IBUPROFEN 400 MG TABLET (FP) PO PRN ×2 (06:18→22:18)
[2017-12-27] MEDS: NIFEdipine E.R 60 MG TABLET (UD) PO SCH (09:58)
[2017-12-27] MEDS: HYDROCHLOROTHIAZIDE 12.5 MG CAPSULE (FP) PO SCH ×2 (09:58→16:59)
[2017-12-27] MEDS: LISINOPRIL 20 MG TABLET (FP) PO SCH (09:58)
[2017-12-27] MEDS: PRENATAL VITAMINS W/ FOLIC ACID TABLET (FP) PO SCH (09:58)
[2017-12-27] MEDS: DOCUSATE SODIUM 100 MG CAPSULE (FP) PO SCH ×3 (09:58→22:16)
[2017-12-27] MEDS: PANTOPRAZOLE 40 MG TABLET (FP) PO SCH (09:58)
--- NOTE | 2017-12-27 13:58 | PN ---
S Progress Note (SOAP) Subjective: PT C/O LOWER EXTREMITY/THIGH PAIN AND SWELLING, LEFT > RIGHT X 4 DAYS AND WANTS TO BE CHECKED OUT AT THE ER. PT REPORTS HE WEARS STOCKINGS AT HOME BUT DID NOT BRING IT. PT DECLINED ANY OTHER MEASURES ON THE UNIT AND WANTS TO GO TO THE ER. PT IS ALERT O X 3. OUT OF BED WITH CANE. . Objective: 12/27/17 14:58 Vital Signs - 24 hr 12/27/17 12/27/17 12/27/17 03:30 06:56 09:30 Temperature 97.4 F L Pulse Rate 88 98 H Respiratory 16 20 18 Rate Blood Pressure 150/83 151/95 Laboratory Tests 12/20/17 12/21/17 12/21/17 17:00 06:39 09:05 POC Glucometer 108 162 Hemoglobin A1c % 6.7 H 12/21/17 12/22/17 12/22/17 16:35 06:40 16:47 POC Glucometer 175 150 175 Hemoglobin A1c % 12/23/17 12/23/17 12/23/17 06:46 18:12 20:47 POC Glucometer 211 233 178 Hemoglobin A1c % 12/24/17 12/24/17 12/25/17 06:40 17:04 06:24 POC Glucometer 149 159 192 Hemoglobin A1c % 12/25/17 12/26/17 12/26/17 17:05 06:27 17:27 POC Glucometer 184 267 185 Hemoglobin A1c % 12/27/17 06:16 POC Glucometer 200 Hemoglobin A1c % BOTH ANKLES WITH SWELLING. SLIGHT PAIN ON PALPATION OF BOTH THIGHS. NO REDNESS OR SWELLING. Assessment: 12/27/17 14:25 ANKLE EDEMA LOWER EXTREMITIES/THIGH PAIN Plan: LASIX 40 MG PO NOW. DARRICK STOCKINGS APPLY PRN FLEXERIL 10 MG PO TID PRN ELEVATE LEGS WHILE IN BED. OOB TOLERATED WITH CANE REFER TO [facility] ER IF STILL NOT FEELING BETTER. ADDENDUM:PT DECLINED TO GO TO THE ER AND WANTS TREATED HERE FOR NOW.
[2017-12-27] MEDS ORDERED: FUROSEMIDE 40 MG TABLET (FP) PO ONE (15:02)
[2017-12-27] MEDS: CYCLOBENZAPRINE HCL 10 MG TABLET (FP) PO PRN ×2 (15:28→22:16)
[2017-12-27] MEDS: THIAMINE HCL 100 MG TABLET (FP) PO SCH (22:16)
[2017-12-27] MEDS: traZODone HCL 50 MG TABLET (FP) PO SCH (22:16)
[2017-12-28] MEDS: ACETAMINOPHEN 325 MG TABLET (FP) PO PRN (00:31)
[2017-12-28] MEDS ORDERED: METHADONE HCL 10 MG TABLET PO SCH (06:15)
[2017-12-28] MEDS ORDERED: METHADONE 80 MG, METHADONE 10 MG PO SCH (06:15)
[2017-12-28] MEDS ORDERED: METHADONE HCL 40 MG DISPERSABLE TABLET ONE (06:30)
[2017-12-28] MEDS ORDERED: METHADONE HCL 10 MG TABLET ONE (06:30)
[2017-12-28] MEDS: METHADONE 80 MG, METHADONE 10 MG PO SCH (06:40)
[2017-12-28] MEDS: metFORMIN HCL 500 MG TABLET (FP) PO SCH ×2 (06:41→17:16)
[2017-12-28] MEDS: DOCUSATE SODIUM 100 MG CAPSULE (FP) PO SCH ×3 (06:41→22:03)
[2017-12-28] MEDS: PANTOPRAZOLE 40 MG TABLET (FP) PO SCH (10:02)
[2017-12-28] MEDS: LISINOPRIL 20 MG TABLET (FP) PO SCH (10:02)
[2017-12-28] MEDS: NIFEdipine E.R 60 MG TABLET (UD) PO SCH (10:02)
[2017-12-28] MEDS: HYDROCHLOROTHIAZIDE 12.5 MG CAPSULE (FP) PO SCH ×2 (10:02→17:18)
[2017-12-28] MEDS: PRENATAL VITAMINS W/ FOLIC ACID TABLET (FP) PO SCH (10:02)
[2017-12-28] MEDS: IBUPROFEN 400 MG TABLET (FP) PO PRN (17:18)
[2017-12-28] MEDS: traZODone HCL 50 MG TABLET (FP) PO SCH (22:03)
[2017-12-28] MEDS: THIAMINE HCL 100 MG TABLET (FP) PO SCH (22:03)
[2017-12-28] MEDS: CYCLOBENZAPRINE HCL 10 MG TABLET (FP) PO PRN (22:03)
[2017-12-29] MEDS ORDERED: METHADONE HCL 10 MG TABLET ONE (02:57)
[2017-12-29] MEDS ORDERED: METHADONE HCL 40 MG DISPERSABLE TABLET ONE (02:57)
[2017-12-29] MEDS: METHADONE 80 MG, METHADONE 10 MG PO SCH (06:25)
[2017-12-29] MEDS: DOCUSATE SODIUM 100 MG CAPSULE (FP) PO SCH ×3 (06:27→21:30)
[2017-12-29] MEDS: metFORMIN HCL 500 MG TABLET (FP) PO SCH ×2 (06:27→16:59)
[2017-12-29] MEDS: LISINOPRIL 20 MG TABLET (FP) PO SCH (09:53)
[2017-12-29] MEDS: NIFEdipine E.R 60 MG TABLET (UD) PO SCH (09:53)
[2017-12-29] MEDS: PRENATAL VITAMINS W/ FOLIC ACID TABLET (FP) PO SCH (09:53)
[2017-12-29] MEDS: PANTOPRAZOLE 40 MG TABLET (FP) PO SCH (09:53)
[2017-12-29] MEDS: HYDROCHLOROTHIAZIDE 12.5 MG CAPSULE (FP) PO SCH ×2 (09:54→17:14)
[2017-12-29] MEDS: IBUPROFEN 400 MG TABLET (FP) PO PRN (14:46)
[2017-12-29] MEDS: THIAMINE HCL 100 MG TABLET (FP) PO SCH (21:30)
[2017-12-29] MEDS: CYCLOBENZAPRINE HCL 10 MG TABLET (FP) PO PRN (21:30)
[2017-12-29] MEDS: traZODone HCL 50 MG TABLET (FP) PO SCH (21:30)
[2017-12-29] MEDS: MELATONIN 5 MG TABLETS PO PRN (21:30)
[2017-12-30] MEDS ORDERED: METHADONE HCL 10 MG TABLET ONE (05:20)
[2017-12-30] MEDS ORDERED: METHADONE HCL 40 MG DISPERSABLE TABLET ONE (05:20)
[2017-12-30] MEDS: metFORMIN HCL 500 MG TABLET (FP) PO SCH ×2 (06:39→17:12)
[2017-12-30] MEDS: DOCUSATE SODIUM 100 MG CAPSULE (FP) PO SCH ×3 (06:39→22:13)
[2017-12-30] MEDS: METHADONE 80 MG, METHADONE 10 MG PO SCH (06:39)
[2017-12-30] MEDS: PANTOPRAZOLE 40 MG TABLET (FP) PO SCH (10:08)
[2017-12-30] MEDS: PRENATAL VITAMINS W/ FOLIC ACID TABLET (FP) PO SCH (10:08)
[2017-12-30] MEDS: NIFEdipine E.R 60 MG TABLET (UD) PO SCH (10:08)
[2017-12-30] MEDS: HYDROCHLOROTHIAZIDE 12.5 MG CAPSULE (FP) PO SCH ×2 (10:08→18:03)
[2017-12-30] MEDS: LISINOPRIL 20 MG TABLET (FP) PO SCH (10:08)
[2017-12-30] MEDS: IBUPROFEN 400 MG TABLET (FP) PO PRN (10:09)
[2017-12-30] MEDS: traZODone HCL 50 MG TABLET (FP) PO SCH (22:13)
[2017-12-30] MEDS: THIAMINE HCL 100 MG TABLET (FP) PO SCH (22:13)
[2017-12-30] MEDS: CYCLOBENZAPRINE HCL 10 MG TABLET (FP) PO PRN (22:15)
[2017-12-31] MEDS ORDERED: METHADONE HCL 40 MG DISPERSABLE TABLET ONE (03:14)
[2017-12-31] MEDS ORDERED: METHADONE HCL 10 MG TABLET ONE (03:14)
[2017-12-31] MEDS: DOCUSATE SODIUM 100 MG CAPSULE (FP) PO SCH ×3 (06:51→21:28)
[2017-12-31] MEDS: METHADONE 80 MG, METHADONE 10 MG PO SCH (06:51)
[2017-12-31] MEDS: metFORMIN HCL 500 MG TABLET (FP) PO SCH ×2 (06:53→16:56)
[2017-12-31] MEDS: NIFEdipine E.R 60 MG TABLET (UD) PO SCH (10:02)
[2017-12-31] MEDS: LISINOPRIL 20 MG TABLET (FP) PO SCH (10:02)
[2017-12-31] MEDS: PRENATAL VITAMINS W/ FOLIC ACID TABLET (FP) PO SCH (10:02)
[2017-12-31] MEDS: PANTOPRAZOLE 40 MG TABLET (FP) PO SCH (10:02)
[2017-12-31] MEDS: HYDROCHLOROTHIAZIDE 12.5 MG CAPSULE (FP) PO SCH ×2 (10:02→17:04)
[2017-12-31] MEDS: MAGNESIUM HYDROX 2400MG/30ML ORAL SUSPENSION 30 ML CUP PO PRN (10:04)
[2017-12-31] MEDS ORDERED: SODIUM PHOSPHATE/NA BIPHOS 133 ML ENEMA PR ONE (14:15)
[2017-12-31] MEDS: THIAMINE HCL 100 MG TABLET (FP) PO SCH (21:28)
[2017-12-31] MEDS: traZODone HCL 50 MG TABLET (FP) PO SCH (21:28)
[2017-12-31] MEDS: CYCLOBENZAPRINE HCL 10 MG TABLET (FP) PO PRN (21:29)
[2018-01-01] MEDS ORDERED: METHADONE HCL 40 MG DISPERSABLE TABLET ONE (03:15)
[2018-01-01] MEDS ORDERED: METHADONE HCL 10 MG TABLET ONE (03:15)
[2018-01-01] MEDS: METHADONE 80 MG, METHADONE 10 MG PO SCH (06:26)
[2018-01-01] MEDS: DOCUSATE SODIUM 100 MG CAPSULE (FP) PO SCH ×3 (06:28→22:10)
[2018-01-01] MEDS: metFORMIN HCL 500 MG TABLET (FP) PO SCH ×2 (06:28→17:03)
[2018-01-01] MEDS: HYDROCHLOROTHIAZIDE 12.5 MG CAPSULE (FP) PO SCH ×2 (10:11→17:03)
[2018-01-01] MEDS: PANTOPRAZOLE 40 MG TABLET (FP) PO SCH (10:11)
[2018-01-01] MEDS: PRENATAL VITAMINS W/ FOLIC ACID TABLET (FP) PO SCH (10:11)
[2018-01-01] MEDS: LISINOPRIL 20 MG TABLET (FP) PO SCH (10:11)
[2018-01-01] MEDS: NIFEdipine E.R 60 MG TABLET (UD) PO SCH (10:11)
[2018-01-01] MEDS: traZODone HCL 50 MG TABLET (FP) PO SCH (22:10)
[2018-01-01] MEDS: MELATONIN 5 MG TABLETS PO PRN (22:10)
[2018-01-01] MEDS: CYCLOBENZAPRINE HCL 10 MG TABLET (FP) PO PRN (22:10)
[2018-01-01] MEDS: THIAMINE HCL 100 MG TABLET (FP) PO SCH (22:10)
[2018-01-02] MEDS ORDERED: METHADONE HCL 40 MG DISPERSABLE TABLET ONE (05:33)
[2018-01-02] MEDS ORDERED: METHADONE HCL 10 MG TABLET ONE (05:33)
[2018-01-02] MEDS: DOCUSATE SODIUM 100 MG CAPSULE (FP) PO SCH ×3 (06:33→21:02)
[2018-01-02] MEDS: METHADONE 80 MG, METHADONE 10 MG PO SCH (06:34)
[2018-01-02 07:09] VITALS: TEMP 97.3
[2018-01-02] MEDS: metFORMIN HCL 500 MG TABLET (FP) PO SCH ×2 (07:09→17:07)
[2018-01-02] MEDS: HYDROCHLOROTHIAZIDE 12.5 MG CAPSULE (FP) PO SCH ×2 (10:04→17:07)
[2018-01-02] MEDS: NIFEdipine E.R 60 MG TABLET (UD) PO SCH (10:04)
[2018-01-02] MEDS: PANTOPRAZOLE 40 MG TABLET (FP) PO SCH (10:04)
[2018-01-02] MEDS: LISINOPRIL 20 MG TABLET (FP) PO SCH (10:04)
[2018-01-02] MEDS: PRENATAL VITAMINS W/ FOLIC ACID TABLET (FP) PO SCH (10:04)
[2018-01-02] MEDS: traZODone HCL 50 MG TABLET (FP) PO SCH (21:02)
[2018-01-02] MEDS: THIAMINE HCL 100 MG TABLET (FP) PO SCH (21:02)
[2018-01-02] MEDS: CYCLOBENZAPRINE HCL 10 MG TABLET (FP) PO PRN (21:04)
[2018-01-03] MEDS ORDERED: METHADONE HCL 40 MG DISPERSABLE TABLET ONE (05:36)
[2018-01-03] MEDS ORDERED: METHADONE HCL 10 MG TABLET ONE (05:36)
[2018-01-03] MEDS: METHADONE 80 MG, METHADONE 10 MG PO SCH (06:10)
[2018-01-03] MEDS: DOCUSATE SODIUM 100 MG CAPSULE (FP) PO SCH ×3 (06:11→22:08)
[2018-01-03] MEDS: metFORMIN HCL 500 MG TABLET (FP) PO SCH ×2 (06:41→16:59)
--- NOTE | 2018-01-03 08:27 | PN ---
Psychiatric Progress Note Vital Signs: Vital Signs Period Temp Pulse Resp BP Sys/Flores Pulse Ox Last 24 Hr 97.3 F 84-87 18-20 122-156/73-93 Date of Session: 01/03/18 Chief Complaint:: Discharge Note HPI: Patient addressing Alcohol amd Cocaine Dependence comorbid with Opioid Dependence on Agonist Therapy, Nicotine Dependence, Substance-Induced Mood Disorderv and Substance-Induced Sleep Disorder ROS: Type 2 DM, HTN, Asthma, Hep C were medically managed Current Medications: Active Medications Generic Name Dose Route Start Last Admin Trade Name Freq PRN Reason Stop Dose Admin Acetaminophen 650 mg 12/20/17 10:45 12/28/17 00:31 Tylenol - PO 650 mg Q4H PRN Administration FEVER Al Hydroxide/Mg Hydroxide 30 ml 12/20/17 10:45 Mylanta Oral Suspension - PO Q6H PRN DYSPEPSIA Albuterol Sulfate 2 puff 12/20/17 10:47 Ventolin Hfa Inhaler - IH Q4H PRN WHEEZING Cyclobenzaprine HCl 10 mg 12/27/17 15:02 01/02/18 21:04 Flexeril - PO 10 mg TID PRN Administration MUSCLE SPASMS Docusate Sodium 100 mg 12/27/17 14:00 01/03/18 06:11 Colace - PO 100 mg TID MARIA GUADALUPE Administration Eucalyptus/Menthol/Phenol/Sorbitol 1 each 12/20/17 10:45 Cepastat Lozenge - MM Q4H PRN SORE THROAT Guaifenesin 10 ml 12/20/17 10:45 Robitussin Dm - PO Q6H PRN COUGH Hydrochlorothiazide 12.5 mg 12/24/17 18:00 01/02/18 17:07 Hctz - PO 12.5 mg BID@1000,1800 MARIA GUADALUPE Administration Ibuprofen 400 mg 12/20/17 10:45 12/30/17 10:09 Motrin - PO 400 mg Q6H PRN Administration Pain Level 4-6 Lisinopril 40 mg 12/21/17 10:00 01/02/18 10:04 Prinivil PO 40 mg DAILY MARIA GUADALUPE Administration Loperamide HCl 4 mg 12/20/17 10:45 Imodium - PO Q6H PRN DIARRHEA Magnesium Hydroxide 30 ml 12/20/17 10:45 12/31/17 10:04 Milk Of Magnesia - PO 30 ml DAILY PRN Administration CONSTIPATION Melatonin 5 mg 12/20/17 22:00 01/01/18 22:10 Melatonin PO 5 mg HS PRN Administration INSOMNIA Metformin HCl 1,000 mg 12/20/17 16:30 01/03/18 06:41 Glucophage - PO 1,000 mg BID@0700,1630 MARIA GUADALUPE Administration Methadone HCl 80 mg/ Methadone 90 mg 01/04/18 06:00 HCl 10 mg PO 01/10/18 05:59 DAILY@0600 MARIA GUADALUPE Nicotine 14 mg 12/20/17 10:45 12/26/17 10:20 Nicoderm Patch - TD 14 mg DAILY PRN Administration WITHDRAWAL(CONT SUBST) Nicotine Polacrilex 2 mg 12/20/17 10:45 Nicorette Gum - BUC Q2H PRN NICOTINE REPLACEMENT RX Nifedipine 60 mg 12/21/17 10:00 01/02/18 10:04 Procardia Xl - PO 60 mg DAILY MARIA GUADALUPE Administration Pantoprazole Sodium 40 mg 12/21/17 10:00 01/02/18 10:04 Protonix - PO 40 mg DAILY MARIA GUADALUPE Administration Multivit/Folic Acid/Iron 1 tab 12/21/17 10:00 01/02/18 10:04 Vitamins (Sjr) - PO 1 tab DAILY MARIA GUADALUPE Administration Pseudoephedrine/Triprolidine 1 combo 12/20/17 10:45 Actifed - PO TID PRN NASAL CONGESTION Thiamine HCl 100 mg 12/20/17 22:00 01/02/18 21:02 Vitamin B1 - PO 100 mg HS MARIA GUADALUPE Administration Trazodone HCl 50 mg 12/21/17 22:00 01/02/18 21:02 Desyrel - PO 50 mg HS MARIA GUADALUPE Administration Current Side Effect: No Lab tests ordered: Yes Lab tests reviewed: Yes Provider note:: Patient will complete this program on 01/04/18. He has met his treatment goals and will continue to address his issues in [facility]. Told insurance writer that from his participation in this program, he has learned to take baby steps to accomplish his goals of maintaning abstinence. He responded well to Trazadone 50 mg po HS. Script for that medication will be elecronically transmitted to [facility] at [address] [place] [address]. He is stable for discharge on 01/04/18 Total face to face time:: 35 Mental Status Exam - Mental Status Exam Alert and Oriented to: Time, Place, Person Cognitive Function: Fair Patient Appearance: Well Groomed Mood: Hopeful, Euthymic Affect: Appropriate Patient Behavior: Cooperative Speech Pattern: Clear Voice Loudness: Normal Thought Process: Intact, Goal Oriented Thought Disorder: Not Present Hallucinations: Denies Suicidal Ideation: Denies Homicidal Ideation: Denies Insight/Judgement: Fair Sleep: Fair Appetite: Good Muscle strength/Tone: Normal Gait/Station: Normal Psychiatric Treatment Plan - Problem List (1) Alcohol dependence Current Visit: Yes (2) Cocaine dependence Current Visit: No Qualifiers: Substance use status: uncomplicated Qualified Code(s): F14.20 - Cocaine dependence, uncomplicated (3) Opioid dependence on agonist therapy Current Visit: No Comment: on MMTP methdone 90 mg dose pending verification (4) Nicotine dependence Current Visit: Yes (5) Substance induced mood disorder Current Visit: Yes (6) Substance-induced sleep disorder Current Visit: Yes (7) Diabetes mellitus type 2 in obese Current Visit: No (8) Hypertension Current Visit: No Qualifiers: Hypertension type: essential hypertension Qualified Code(s): I10 - Essential (primary) hypertension (9) Asthma Current Visit: Yes (10) Hepatitis C Current Visit: Yes Initial treatment plan: Patient will be discharged tomorrow and referred to [facility] for outpatient treatment
[2018-01-03] MEDS: LISINOPRIL 20 MG TABLET (FP) PO SCH (10:04)
[2018-01-03] MEDS: NIFEdipine E.R 60 MG TABLET (UD) PO SCH (10:04)
[2018-01-03] MEDS: PANTOPRAZOLE 40 MG TABLET (FP) PO SCH (10:04)
[2018-01-03] MEDS: PRENATAL VITAMINS W/ FOLIC ACID TABLET (FP) PO SCH (10:04)
[2018-01-03] MEDS: HYDROCHLOROTHIAZIDE 12.5 MG CAPSULE (FP) PO SCH ×2 (10:04→16:59)
[2018-01-03] MEDS: CYCLOBENZAPRINE HCL 10 MG TABLET (FP) PO PRN (10:06)
--- NOTE | 2018-01-03 13:54 | PN ---
[facility] Progress Note Note: PT SCHEDULED FOR DISCHARGE IN A.M. REPORTS HE IS ISIS FOR AFTERCARE AT [facility] [place], [place]. REPORTS HE HAS ALL SERVICES UNDER ONE ROOF AND HAS OWN MEDS. ALERT O X 3. Vital Signs - 24 hr 01/02/18 01/02/18 01/03/18 16:45 20:50 00:30 Temperature Pulse Rate 84 84 Respiratory 20 Rate Blood Pressure 122/73 137/79 01/03/18 01/03/18 01/03/18 03:30 06:50 10:00 Temperature 97.3 F L Pulse Rate 87 86 Respiratory 20 20 Rate Blood Pressure 153/93 177/94 H NAD PLAN:FOLLOW UP WIT AFTERCARE PLANNED.
[2018-01-03] MEDS: THIAMINE HCL 100 MG TABLET (FP) PO SCH (22:08)
[2018-01-03] MEDS: traZODone HCL 50 MG TABLET (FP) PO SCH (22:08)
[2018-01-03] MEDS: MELATONIN 5 MG TABLETS PO PRN (22:08)
[2018-01-04] MEDS ORDERED: METHADONE HCL 10 MG TABLET ONE (05:33)
[2018-01-04] MEDS ORDERED: METHADONE HCL 40 MG DISPERSABLE TABLET ONE (05:33)
[2018-01-04] MEDS: DOCUSATE SODIUM 100 MG CAPSULE (FP) PO SCH (05:58)
[2018-01-04] MEDS ORDERED: METHADONE 80 MG, METHADONE 10 MG PO SCH (06:00)
[2018-01-04] MEDS: metFORMIN HCL 500 MG TABLET (FP) PO SCH (07:06)
[2018-01-04] MEDS: PRENATAL VITAMINS W/ FOLIC ACID TABLET (FP) PO SCH (09:00)
[2018-01-04] MEDS: PANTOPRAZOLE 40 MG TABLET (FP) PO SCH (09:01)
[2018-01-04] MEDS: HYDROCHLOROTHIAZIDE 12.5 MG CAPSULE (FP) PO SCH (09:01)
[2018-01-04] MEDS: NIFEdipine E.R 60 MG TABLET (UD) PO SCH (09:01)
[2018-01-04] MEDS: LISINOPRIL 20 MG TABLET (FP) PO SCH (09:01)
[2018-01-04 09:02] VITALS: BP 152/92; PULSE 103
== END 2018-01-04 09:13 | disposition home or self-care (01) | DRG 772 ==
LOC: YASAS 13:41 → Y3W 13:42
PROVIDERS: ADMIT Psychiatry & Neurology Psychiatry; ATTEND Psychiatry & Neurology Psychiatry
PROC: HZ42ZZZ Group Counseling for Substance Abuse Treatment, Cognitive-Behavioral (ICD-10-PCS; principal; 2017-12-20)
DX: F10.20 Alcohol dependence, uncomplicated (principal); F11.20 Opioid dependence, uncomplicated; F14.20 Cocaine dependence, uncomplicated; F17.210 Nicotine dependence, cigarettes, uncomplicated; F19.24 Other psychoactive substance dependence with psychoactive substance-induced mood disorder; E11.69 Type 2 diabetes mellitus with other specified complication; I10 Essential (primary) hypertension; J45.909 Unspecified asthma, uncomplicated; B18.2 Chronic viral hepatitis C; R60.0 Localized edema; M79.604 Pain in right leg; M79.605 Pain in left leg; E66.9 Obesity, unspecified; Z68.42 Body mass index [BMI] 45.0-49.9, adult
CPT/HCPCS: 82962; 83036; 90688; G0008

== ENCOUNTER 2018-06-29 10:18 | Inpatient (IN) | payer OTHER ==
[2018-06-29 11:05] VITALS: BMI 42.2
--- NOTE | 2018-06-29 11:41 | HP ---
"CIWA Score Nausea/Vomitin Muscle Tremors: 3 Anxiety: 4-Mod. Anxious/Guarded Agitation: 1-Slight > Activity Paroxysmal Sweats: 1-Minimal Palms Moist Orientation: 0-Oriented Tacttile Disturbances: 2-Mild Itch/Numbness/Burn Auditory Disturbances: 0-None Visual Disturbances: 1-Very Mild Sensitivity Headache: 1-Very Mild CIWA-Ar Total Score: 15 - Admission Criteria OASAS Guidelines: Admission for Medically Managed Detox: Requires at least one of the followin. CIWA greater than 12 2. Seizures within the past 24 hours 3. Delirium tremens within the past 24 hours 4. Hallucinations within the past 24 hours 5. Acute intervention needed for co occurring medical disorder 6. Acute intervention needed for co occurring psychiatric disorder 7. Severe withdrawal that cannot be handled at a lower level of care (continued vomiting, continued diarrhea, abnormal vital signs) requiring intravenous medication and/or fluids 8. Patient presents the following: CIWA greater than 12 Admission Criteria Met: Admission criteria met Admission ROS [facility] - HPI Chief Complaint: I'm tired of using, so tired of it, I have to get it together, my son needs me, I need myself Allergies/Adverse Reactions: Allergies Allergy/AdvReac Type Severity Reaction Status Date / Time Fish Containing Products AdvReac Intermediate Rash Verified 06/29/18 11:34 History of Present Illness: 42 yo gentleman here for detox from alcohol and benzodiazepines - also using heroin but also on [facility] - 120mg - dosed today, brought in take home bottle. No seizures but has had overdoses and black outs. States he drinks starting at 10am after getting his methadone. Longest time sober was 23 months in a [facility]. Net[employer]: Search Terms: sadie al, 1975 Search Date: 06/29/2018 12:20:07 PM The Drug Utilization Report below displays all of the controlled substance prescriptions, if any, that your patient has filled in the last twelve months. The information displayed on this report is compiled from pharmacy submissions to the Department, and accurately reflects the information as submitted by the pharmacies. This report was requested by: Sammie Barker | Reference #: [id number] There are no results for the search terms that you entered. Exam Limitations: Clinical Condition - Ebola screening Have you traveled outside of the country in the last 21 days: No Have you had contact with anyone from an Ebola affected area: No - Review of Systems Constitutional: Chills, Loss of Appetite, Changes in sleep EENT: reports: Blurred Vision, Nose Congestion Respiratory: reports: No Symptoms reported Cardiac: reports: No Symptoms Reported GI: reports: Poor Appetite, Poor Fluid Intake, Abdominal cramping : reports: Frequency Musculoskeletal: reports: Back Pain, Muscle Pain Integumentary: reports: Other (sweaty) Neuro: reports: Headache Endocrine: reports: No Symptoms Reported Hematology: reports: No Symptoms Reported Psychiatric: reports: Judgement Intact, Mood/Affect Appropiate, Anxious Other Systems: Reviewed and Negative Patient History - Patient Medical History Hx Anemia: No Hx Asthma: Yes (on meds) Hx Chronic Obstructive Pulmonary Disease (COPD): No Hx Cancer: No Hx Cardiac Disorders: Yes (arrythmia) Hx Congestive Heart Failure: No Hx Hypertension: Yes (on meds) Hx Hypercholesterolemia: No Hx Pacemaker: No HX Cerebrovascular Accident: No Hx Seizures: No Hx Dementia: No Hx Diabetes: Yes (on meds) Hx Gastrointestinal Disorders: No Hx Liver Disease: No Hx Genitourinary Disorders: No Hx Sexually Transmitted Disorders: No Hx Renal Disease (ESRD): No Hx Thyroid Disease: No Hx Human Immunodeficiency Virus (HIV): No (last tested one month with negative results ) Hx Hepatitis C: Yes (not yet treated) Hx Depression: Yes (never hospitalized) Hx Suicide Attempt: No Hx Bipolar Disorder: No Hx Schizophrenia: No - Patient Surgical History Past Surgical History: No Hx Neurologic Surgery: No Hx Cataract Extraction: No Hx Cardiac Surgery: No Hx Lung Surgery: No Hx Breast Surgery: No Hx Breast Biopsy: No Hx Abdominal Surgery: No Hx Appendectomy: No Hx Cholecystectomy: No Hx Genitourinary Surgery: No Hx Section: No Hx Orthopedic Surgery: No Anesthesia Reaction: No - PPD History Previous Implant?: Yes Documented Results: Negative w/proof Implanted On Prior R Admission?: Yes Date: 12/19/17 Results: 0 MM PPD to be Administered?: No - Reproductive History Patient is a Female of Child Bearing Age (11 -55 yrs old): No (male) - Smoking Cessation Smoking history: Current every day smoker Have you smoked in the past 12 months: Yes Aproximately how many cigarettes per day: 20 Cigars Per Day: 0 Hx Chewing Tobacco Use: No Initiated information on smoking cessation: Yes 'Breaking Loose' booklet given: 06/29/18 (give on floor) - Substance & Tx. History Hx Alcohol Use: Yes Hx Substance Use: Yes Substance Use Type: Alcohol, Cocaine, Tranquilizers Hx Substance Use Treatment: Yes (detox, rehab, methadone program) - Substances abused Alcohol Substance route: Oral Frequency: Daily Amount used: four 24oz beers Age of first use: 21 Date of last use: 06/28/18 Alprazolam (Xanax) Substance route: Oral Frequency: 3-6 times per week Amount used: one 4mg Age of first use: 27 Date of last use: 06/28/18 Benzodiazepine (Klonopin) Substance route: Oral Frequency: 3-6 times per week Amount used: two 2mg tabs Age of first use: 28 Date of last use: 06/26/18 Heroin Substance route: Injection Frequency: Daily Amount used: 5 bags Age of first use: 27 Date of last use: 06/28/18 Crack Substance route: Smoking Frequency: Daily Amount used: $100 Age of first use: 28 Date of last use: 06/28/18 Family Disease History - Family Disease History Family Disease History: Diabetes: Mother (living, diabetes), Heart Disease: Father (, COPD, etoh,stroke), Respiratory: Father, Other: Father, Sister (two - living -healthy), Son (age 19 - healthy) Admission Physical Exam S - Vital Signs Vital Signs: Vital Signs - 24 hr 06/29/18 06/29/18 10:37 11:25 Temperature 100.2 F H 100.2 F H Pulse Rate 70 70 Respiratory 16 16 Rate Blood Pressure 188/105 H 188/105 H - Physical General Appearance: Yes: Nourished, Appropriately Dressed, Moderate Distress, Obese, Sweating, Anxious HEENTM: Yes: EOMI, Hearing grossly Normal, Normocephalic, Normal Voice, Pharynx Normal Respiratory: Yes: Normal Breath Sounds, No Respiratory Distress Neck: Yes: No masses,lesions,Nodules Breast: Yes: Breast Exam Deferred Cardiology: Yes: Regular Rhythm, Regular Rate Abdominal: Yes: Soft, Protuberent Genitourinary: Yes: Frequency Back: Yes: Normal Inspection Musculoskeletal: Yes: full range of Motion, Gait Steady Extremities: Yes: Normal Inspection, Normal Range of Motion, Non-Tender Neurological: Yes: Fully Oriented, Alert, Motor Strength 5/5, Normal Mood/Affect , Normal Response Integumentary: Yes: Normal Color, Warm, Track Vincent (both arms - no abscess noted) Lymphatic: Yes: Within Normal Limits - Diagnostic (1) Alcohol dependence with withdrawal Current Visit: Yes Status: Acute Qualifiers: Complication of substance-induced condition: uncomplicated Qualified Code(s ): F10.230 - Alcohol dependence with withdrawal, uncomplicated (2) Sedative, hypnotic or anxiolytic dependence, uncomplicated Current Visit: Yes Status: Acute (3) Methadone maintenance therapy patient Current Visit: Yes Status: Chronic (4) Cocaine dependence Current Visit: Yes Status: Chronic Qualifiers: Substance use status: uncomplicated Qualified Code(s): F14.20 - Cocaine dependence, uncomplicated (5) Acid reflux Current Visit: Yes Status: Chronic Qualifiers: Esophagitis presence: without esophagitis Qualified Code(s): K21.9 - Gastro -esophageal reflux disease without esophagitis (6) Asthma Current Visit: Yes Status: Chronic Qualifiers: Asthma severity: mild Asthma persistence: intermittent Asthma complication type: with acute exacerbation Qualified Code(s): J45.21 - Mild intermittent asthma with (acute) exacerbation (7) Diabetes mellitus type 2 in obese Current Visit: Yes Status: Chronic Comment: [id number] (8) Hepatitis C Current Visit: Yes Status: Chronic Qualifiers: Viral hepatitis chronicity: chronic Hepatic coma status: without hepatic coma Qualified Code(s): B18.2 - Chronic viral hepatitis C (9) Hypertension Current Visit: Yes Status: Chronic Qualifiers: Hypertension type: essential hypertension Qualified Code(s): I10 - Essential (primary) hypertension (10) Nicotine dependence Current Visit: Yes Status: Chronic Qualifiers: Nicotine product type: cigarettes Substance use status: uncomplicated Qualified Code(s): F17.210 - Nicotine dependence, cigarettes, uncomplicated Cleared for Admission B[facility] - Detox or Rehab S Level of Care: Medically Managed Detox Regimen/Protocol: Librium Breathalyzer - Breathalyzer Breathalyzer: 0 Urine Drug Screen - Test Device Lot number: [id number] Expiration date: 02/16/20 - Control Is test valid?: Yes - Results Drug screen NEGATIVE: No Urine drug screen results: PARUL-Cocaine, MET-Methamphetamine, FEN-Fentanyl, MOP- Opiates, MTD-Methadone, BZO-Benzodiazepines Inpatient Rehab Admission - Rehab Decision to Admit Inpatient rehab admission?: No"
[2018-06-29] MEDS ORDERED: METHOCARBAMOL 500 MG TABLET PO PRN (11:54)
[2018-06-29] MEDS ORDERED: MAGNESIUM HYDROX 2400MG/30ML ORAL SUSPENSION 30 ML CUP PO PRN (11:54)
[2018-06-29] MEDS ORDERED: IBUPROFEN 400 MG TABLET (FP) PO PRN (11:54)
[2018-06-29] MEDS ORDERED: MAG HYDROX/AL HYDROX/SIMETH 30 ML UNIT-DOSE CUP PO PRN (11:54)
[2018-06-29] MEDS ORDERED: MENTHOL/PHENOL 1 EACH UD MM PRN (11:54)
[2018-06-29] MEDS ORDERED: MAGNESIUM CITRATE 300 ML BOTTLE PO PRN (11:54)
[2018-06-29] MEDS ORDERED: chlordiazePOXIDE HCL 25 MG CAPSULE PO PRN (11:54)
[2018-06-29] MEDS ORDERED: ACETAMINOPHEN 325 MG TABLET (FP) PO PRN (11:54)
[2018-06-29] MEDS ORDERED: BISMUTH SUBSALICYLATE 524 MG/30 ML UD PO PRN (11:54)
[2018-06-29] MEDS ORDERED: ALBUTEROL SO4 8 GM HFA INHALER IH PRN (11:55)
[2018-06-29] MEDS ORDERED: NIFEdipine E.R 60 MG TABLET (UD) PO SCH (12:00)
[2018-06-29] MEDS ORDERED: chlordiazePOXIDE HCL 25 MG CAPSULE PO ONE (12:30)
[2018-06-29] MEDS: PANTOPRAZOLE 40 MG TABLET (FP) PO SCH (13:12)
[2018-06-29] MEDS: LISINOPRIL 20 MG TABLET (FP) PO SCH (13:12)
[2018-06-29] MEDS: NICOTINE 21 MG/24 HOURS TOPICAL PATCH TD SCH (13:16)
[2018-06-29] MEDS ORDERED: cloNIDine HCL 0.1 MG TABLET PO ONE (15:55)
--- NOTE | 2018-06-29 15:58 | PN ---
[facility] Progress Note Note: Patient admitted to unit this afternoon for alcohol detox, received home meds for chronic hypertension. Current BP following is 188/108..1 dose of clonidine 0.1mg ordered Vital Signs 06/29/18 06/29/18 06/29/18 10:37 11:25 14:00 Temperature 100.2 F H 100.2 F H 98.4 F Pulse Rate 70 70 66 Respiratory 16 16 16 Rate Blood Pressure 188/105 H 188/105 H 156/106 H
[2018-06-29] MEDS: INSULIN SLIDING SCALE (NOVOLOG) 1 VIAL SQ SCH (17:04)
[2018-06-29] MEDS: metFORMIN HCL 500 MG TABLET (FP) PO SCH (17:25)
[2018-06-29] MEDS: chlordiazePOXIDE HCL 25 MG CAPSULE PO SCH ×2 (17:31→23:46)
[2018-06-29] MEDS: THIAMINE HCL 100 MG TABLET (FP) PO SCH (23:46)
[2018-06-29] MEDS: traZODone HCL 50 MG TABLET (FP) PO SCH (23:46)
[2018-06-30] MEDS: chlordiazePOXIDE HCL 25 MG CAPSULE PO SCH ×4 (06:30→22:14)
[2018-06-30] MEDS: INSULIN SLIDING SCALE (NOVOLOG) 1 VIAL SQ SCH ×2 (07:13→17:17)
[2018-06-30] MEDS: metFORMIN HCL 500 MG TABLET (FP) PO SCH ×2 (07:13→17:16)
[2018-06-30] MEDS ORDERED: METHADONE HCL 40 MG DISPERSABLE TABLET PO SCH ×2 (10:00)
[2018-06-30 10:28] LABS: ALBUMIN 2.9 g/dl (3.4-5.0); ALK PHOS 111 U/L (45-117); ANION GAP 5 MMOL/L (8-16); BILIRUBIN,TOTAL 0.3 mg/dL (0.2-1); BLOOD UREA NITROGEN 15 mg/dL (7-18); CALCIUM 8.3 mg/dL (8.5-10.1); CHLORIDE 104 mmol/L (98-107); CO2 30 mmol/L (21-32); CREATININE 0.8 mg/dL (0.55-1.3); GLUCOSE,RANDOM 114 mg/dL (74-106); POTASSIUM 3.5 mmol/L (3.5-5.1); SGOT/AST 28 U/L (15-37); SGPT/ALT 37 U/L (13-61); SODIUM 139 mmol/L (136-145); TOT PROT 6.9 g/dl (6.4-8.2)
[2018-06-30 10:32] LABS: HEMATOCRIT 40.5 % (35.4-49); HEMOGLOBIN 13.8 GM/dL (11.7-16.9); MCH 30.5 pg (25.7-33.7); MCHC 34.1 g/dl (32.0-35.9); MEAN CELL VOLUME 89.5 fl (80-96); PLATELET COUNT 210 K/MM3 (134-434); RBC 4.53 M/mm3 (4.00-5.60); RDW 13.1 % (11.9-15.9); WHITE BLOOD COUNT 7.5 K/mm3 (4.0-10.0)
[2018-06-30] MEDS: PRENATAL VITAMINS W/ FOLIC ACID TABLET (FP) PO SCH (10:35)
[2018-06-30] MEDS: NIFEdipine E.R. 30 MG TABLET (FP) PO SCH (10:35)
[2018-06-30] MEDS: NICOTINE 21 MG/24 HOURS TOPICAL PATCH TD SCH (10:36)
[2018-06-30] MEDS: PANTOPRAZOLE 40 MG TABLET (FP) PO SCH (10:36)
[2018-06-30] MEDS: LISINOPRIL 20 MG TABLET (FP) PO SCH (10:36)
--- NOTE | 2018-06-30 11:13 | PN ---
S CIWA - CIWA Score Nausea/Vomitin-No Nausea/No Vomiting Muscle Tremors: 1-None Visible, but [place] Anxiety: 3 Agitation: 4-Moderately Restless Paroxysmal Sweats: 2 Orientation: 0-Oriented Tacttile Disturbances: 0-None Auditory Disturbances: 0-None Visual Disturbances: 0-None Headache: 0-None Present CIWA-Ar Total Score: 10 [facility] Progress Note (SOAP) Subjective: PATIENT CURRENTLY ON ETOH/BZO DETOX. C/O SWEATING, CHILLS, ANXIETY, INTERRUPTED SLEEP AND RESTLESSNESS. ON [facility]. Objective: 06/30/18 11:11 PE: ALERT AND ORIENTED X 3 SKIN WARM AND MOIST EXT + MILD TREMORS AMB AD KACY ANXIOUS/RESTLESS Assessment: 06/30/18 11:12 WITHDRAWAL SX MILD ELEVATED TEMP LAST NIGHT (LIKELY DUE TO WITHDRAWAL FROM BZ0) Plan: WILL CONTINUE DETOX ENCOURAGE ORAL FLUIDS ORDERED UA MONITOR CLINICALLY
[2018-06-30] MEDS: traZODone HCL 50 MG TABLET (FP) PO SCH (22:14)
[2018-06-30] MEDS: THIAMINE HCL 100 MG TABLET (FP) PO SCH (22:14)
[2018-07-01] MEDS: chlordiazePOXIDE HCL 25 MG CAPSULE PO SCH ×2 (05:14→10:20)
[2018-07-01] MEDS: METHADONE HCL 40 MG DISPERSABLE TABLET PO SCH (05:14)
[2018-07-01] MEDS: metFORMIN HCL 500 MG TABLET (FP) PO SCH ×2 (06:38→17:39)
[2018-07-01] MEDS: INSULIN SLIDING SCALE (NOVOLOG) 1 VIAL SQ SCH ×2 (08:01→17:00)
[2018-07-01] MEDS: NICOTINE 21 MG/24 HOURS TOPICAL PATCH TD SCH (10:19)
[2018-07-01] MEDS: NIFEdipine E.R. 30 MG TABLET (FP) PO SCH (10:20)
[2018-07-01] MEDS: PANTOPRAZOLE 40 MG TABLET (FP) PO SCH (10:21)
[2018-07-01] MEDS: LISINOPRIL 20 MG TABLET (FP) PO SCH (10:21)
[2018-07-01] MEDS: PRENATAL VITAMINS W/ FOLIC ACID TABLET (FP) PO SCH (10:21)
--- NOTE | 2018-07-01 13:05 | PN ---
S CIWA - CIWA Score Nausea/Vomitin-No Nausea/No Vomiting Muscle Tremors: None Anxiety: 2 Agitation: 0-Normal Activity Paroxysmal Sweats: 3 Orientation: 0-Oriented Tacttile Disturbances: 2-Mild Itch/Numbness/Burn Auditory Disturbances: 2-Mild Harshness/Frighten Visual Disturbances: 0-None Headache: 3-Moderate CIWA-Ar Total Score: 12 [facility] Progress Note (SOAP) Subjective: Interrupted Sleep, H/A, Tremors, Constipation (Poor Response To MOM), Stomach Cramping, Sweating, Body Aches. Objective: PATIENT A & O X 3, OBSERVED AMBULATING ON UNIT. IN NO ACUTE DISTRESS. PATIENT DENIES CHEST PAIN. 07/01/18 13:01 Vital Signs Temperature 96.6 F L 07/01/18 09:45 Pulse Rate 100 H 07/01/18 09:45 Respiratory Rate 19 07/01/18 09:45 Blood Pressure 158/81 07/01/18 09:45 O2 Sat by Pulse Oximetry (%) Laboratory Tests 06/29/18 06/29/18 06/30/18 12:27 16:31 07:01 WBC RBC Hgb Hct MCV MCH MCHC RDW Plt Count MPV Sodium Potassium Chloride Carbon Dioxide Anion Gap BUN Creatinine Creat Clearance w eGFR POC Glucometer 144 120 121 Random Glucose Calcium Total Bilirubin AST ALT Alkaline Phosphatase Total Protein Albumin RPR Titer 06/30/18 06/30/18 06/30/18 07:15 07:15 07:15 WBC 7.5 RBC 4.53 Hgb 13.8 Hct 40.5 MCV 89.5 MCH 30.5 MCHC 34.1 RDW 13.1 Plt Count 210 D MPV 9.0 Sodium 139 Potassium 3.5 Chloride 104 Carbon Dioxide 30 Anion Gap 5 L BUN 15 Creatinine 0.8 Creat Clearance w eGFR 106.01 POC Glucometer Random Glucose 114 H Calcium 8.3 L Total Bilirubin 0.3 AST 28 ALT 37 Alkaline Phosphatase 111 Total Protein 6.9 Albumin 2.9 L RPR Titer Nonreactive 06/30/18 07/01/18 16:21 05:16 WBC RBC Hgb Hct MCV MCH MCHC RDW Plt Count MPV Sodium Potassium Chloride Carbon Dioxide Anion Gap BUN Creatinine Creat Clearance w eGFR POC Glucometer 157 131 Random Glucose Calcium Total Bilirubin AST ALT Alkaline Phosphatase Total Protein Albumin RPR Titer LABS NOTED. 07/01/18 13:05 Assessment: 07/01/18 13:02 WITHDRAWAL SYMPTOMS. HYPERTENSION. 07/01/18 13:05 Plan: CONTINUE DETOX. INCREASE DAILY PO FLUID INTAKE. COLACE-SENNA BID FOR CONSTIPATION. CONTINUE TO MONITOR BP.
[2018-07-01] MEDS: SENNOSIDES/DOCUSATE COMBO (SENNA PLUS) TABLET (UD) PO SCH ×2 (15:04→22:30)
[2018-07-01] MEDS ORDERED: NIFEdipine E.R. 30 MG TABLET (FP) PO ONE (16:30)
--- NOTE | 2018-07-01 16:36 | PN ---
S Progress Note Note: Daily dose of Procardia XL increased to 90 mg PO Daily for persistently elevated BP despite treatment. Will continue to monitor BP. Richar Davis DIRECTOR OF STRATEGIC PROGRAMS
[2018-07-01] MEDS ORDERED: chlordiazePOXIDE HCL 10 MG CAPSULE PO PRN (17:00)
[2018-07-01] MEDS: chlordiazePOXIDE HCL 10 MG CAPSULE PO SCH ×2 (18:35→22:30)
[2018-07-01] MEDS: THIAMINE HCL 100 MG TABLET (FP) PO SCH (22:29)
[2018-07-01] MEDS: traZODone HCL 50 MG TABLET (FP) PO SCH (22:30)
[2018-07-02] MEDS: chlordiazePOXIDE HCL 10 MG CAPSULE PO SCH ×3 (05:57→18:28)
[2018-07-02] MEDS: METHADONE HCL 40 MG DISPERSABLE TABLET PO SCH (05:57)
[2018-07-02] MEDS: metFORMIN HCL 500 MG TABLET (FP) PO SCH ×2 (06:02→18:28)
[2018-07-02] MEDS: INSULIN SLIDING SCALE (NOVOLOG) 1 VIAL SQ SCH ×2 (06:05→18:30)
[2018-07-02] MEDS: PANTOPRAZOLE 40 MG TABLET (FP) PO SCH (10:04)
[2018-07-02] MEDS: PRENATAL VITAMINS W/ FOLIC ACID TABLET (FP) PO SCH (10:05)
[2018-07-02] MEDS: LISINOPRIL 20 MG TABLET (FP) PO SCH (10:05)
[2018-07-02] MEDS: SENNOSIDES/DOCUSATE COMBO (SENNA PLUS) TABLET (UD) PO SCH ×2 (10:05→23:10)
[2018-07-02] MEDS: NICOTINE 21 MG/24 HOURS TOPICAL PATCH TD SCH (10:07)
[2018-07-02 10:20] LABS: EPI CELLS 0.1 /HPF (0-5/HPF); PH,URINE 7.5 (5.0-8.0); URINE APPEARANCE CLEAR; URINE BACTERIA 1.9 /hpf (NEGATIVE); URINE BILIRUBIN NEGATIVE (NEGATIVE); URINE CASTS 0 /lpf (0-8); URINE COLOR YELLOW; URINE GLUCOSE (UA) NEGATIVE (NEGATIVE); URINE KETONE NEGATIVE (NEGATIVE); URINE LEUK ESTERASE NEGATIVE (NEGATIVE); URINE NITRITE NEGATIVE (NEGATIVE); URINE PROTEIN 1+ (NEGATIVE); URINE RBC 0 /hpf (0-4); URINE WBC 0 /hpf (0-5)
[2018-07-02] MEDS: NIFEdipine E.R. 90 MG TABLET (FP) PO SCH (10:22)
--- NOTE | 2018-07-02 11:57 | PN ---
[facility] Progress Note (SOAP) Subjective: Anxious, Sweating, Body Aches, Tremors. Objective: PATIENT A & O X 3, OBSERVED AMBULATING ON UNIT. IN NO ACUTE DISTRESS. 07/02/18 11:58 Vital Signs Temperature 99.7 F H 07/02/18 09:12 Pulse Rate 95 H 07/02/18 09:12 Respiratory Rate 18 07/02/18 09:12 Blood Pressure 161/84 07/02/18 09:12 O2 Sat by Pulse Oximetry (%) Laboratory Tests 06/29/18 06/29/18 06/30/18 12:27 16:31 07:01 WBC RBC Hgb Hct MCV MCH MCHC RDW Plt Count MPV Sodium Potassium Chloride Carbon Dioxide Anion Gap BUN Creatinine Creat Clearance w eGFR POC Glucometer 144 120 121 Random Glucose Calcium Total Bilirubin AST ALT Alkaline Phosphatase Total Protein Albumin Urine Color Urine Appearance Urine pH Ur Specific [place] Urine Protein Urine Glucose (UA) Urine Ketones Urine Blood Urine Nitrite Urine Bilirubin Urine Urobilinogen Ur Leukocyte Esterase Urine WBC (Auto) Urine RBC (Auto) Urine Casts (Auto) U Epithel Cells (Auto) Urine Bacteria (Auto) RPR Titer 06/30/18 06/30/18 06/30/18 07:15 07:15 07:15 WBC 7.5 RBC 4.53 Hgb 13.8 Hct 40.5 MCV 89.5 MCH 30.5 MCHC 34.1 RDW 13.1 Plt Count 210 D MPV 9.0 Sodium 139 Potassium 3.5 Chloride 104 Carbon Dioxide 30 Anion Gap 5 L BUN 15 Creatinine 0.8 Creat Clearance w eGFR 106.01 POC Glucometer Random Glucose 114 H Calcium 8.3 L Total Bilirubin 0.3 AST 28 ALT 37 Alkaline Phosphatase 111 Total Protein 6.9 Albumin 2.9 L Urine Color Urine Appearance Urine pH Ur Specific [place] Urine Protein Urine Glucose (UA) Urine Ketones Urine Blood Urine Nitrite Urine Bilirubin Urine Urobilinogen Ur Leukocyte Esterase Urine WBC (Auto) Urine RBC (Auto) Urine Casts (Auto) U Epithel Cells (Auto) Urine Bacteria (Auto) RPR Titer Nonreactive 06/30/18 07/01/18 07/01/18 16:21 05:16 16:17 WBC RBC Hgb Hct MCV MCH MCHC RDW Plt Count MPV Sodium Potassium Chloride Carbon Dioxide Anion Gap BUN Creatinine Creat Clearance w eGFR POC Glucometer 157 131 143 Random Glucose Calcium Total Bilirubin AST ALT Alkaline Phosphatase Total Protein Albumin Urine Color Urine Appearance Urine pH Ur Specific [place] Urine Protein Urine Glucose (UA) Urine Ketones Urine Blood Urine Nitrite Urine Bilirubin Urine Urobilinogen Ur Leukocyte Esterase Urine WBC (Auto) Urine RBC (Auto) Urine Casts (Auto) U Epithel Cells (Auto) Urine Bacteria (Auto) RPR Titer 07/02/18 07/02/18 05:59 07:00 WBC RBC Hgb Hct MCV MCH MCHC RDW Plt Count MPV Sodium Potassium Chloride Carbon Dioxide Anion Gap BUN Creatinine Creat Clearance w eGFR POC Glucometer 101 Random Glucose Calcium Total Bilirubin AST ALT Alkaline Phosphatase Total Protein Albumin Urine Color Yellow Urine Appearance Clear Urine pH 7.5 D Ur Specific [place] 1.011 Urine Protein 1+ H Urine Glucose (UA) Negative Urine Ketones Negative Urine Blood Negative Urine Nitrite Negative Urine Bilirubin Negative Urine Urobilinogen 1.0 Ur Leukocyte Esterase Negative Urine WBC (Auto) 0 Urine RBC (Auto) 0 Urine Casts (Auto) 0 U Epithel Cells (Auto) 0.1 Urine Bacteria (Auto) 1.9 RPR Titer LABS NOTED. Assessment: 07/02/18 11:59 WITHDRAWAL SYMPTOMS. HYPERTENSION. 07/02/18 12:01 Plan: CONTINUE DETOX. CONTINUE TO MONITOR BP. PATENT ADVISED TO FOLLOW-UP WITH RELIGIOUS ACTIVITIES DIRECTOR AT [facility] AFTER DISCHARGE FROM DETOX UNIT FOR GENERAL MEDICAL ASSESSMENT AND FOR ELEVATED BP DESPITE TREATMENT WHILE ADMITTED FOR DETOX. PATIENT VERBALIZED UNDERSTANDING OF RECOMMENDATION.
[2018-07-02] MEDS: MELATONIN 5 MG TABLETS PO PRN (23:10)
[2018-07-02] MEDS: THIAMINE HCL 100 MG TABLET (FP) PO SCH (23:10)
[2018-07-02] MEDS: traZODone HCL 50 MG TABLET (FP) PO SCH (23:10)
[2018-07-03] MEDS: chlordiazePOXIDE HCL 10 MG CAPSULE PO SCH ×2 (05:58→17:55)
[2018-07-03] MEDS: METHADONE HCL 40 MG DISPERSABLE TABLET PO SCH (05:58)
[2018-07-03] MEDS: metFORMIN HCL 500 MG TABLET (FP) PO SCH ×2 (08:15→17:30)
[2018-07-03] MEDS: INSULIN SLIDING SCALE (NOVOLOG) 1 VIAL SQ SCH ×2 (08:15→16:56)
[2018-07-03] MEDS: SENNOSIDES/DOCUSATE COMBO (SENNA PLUS) TABLET (UD) PO SCH ×2 (10:20→22:24)
[2018-07-03] MEDS: PRENATAL VITAMINS W/ FOLIC ACID TABLET (FP) PO SCH (11:08)
[2018-07-03] MEDS: LISINOPRIL 20 MG TABLET (FP) PO SCH (11:08)
[2018-07-03] MEDS: NIFEdipine E.R. 90 MG TABLET (FP) PO SCH (11:09)
[2018-07-03] MEDS: PANTOPRAZOLE 40 MG TABLET (FP) PO SCH (11:09)
[2018-07-03] MEDS: NICOTINE 21 MG/24 HOURS TOPICAL PATCH TD SCH (11:10)
--- NOTE | 2018-07-03 11:32 | PN ---
[facility] Progress Note (SOAP) Subjective: stomach aches feeling fine Objective: 07/03/18 11:31 Vital Signs Temperature 98.6 F 07/03/18 09:30 Pulse Rate 83 07/03/18 09:30 Respiratory Rate 18 07/03/18 09:30 Blood Pressure 141/96 07/03/18 09:30 O2 Sat by Pulse Oximetry (%) [id number] ambulating no acute distress Assessment: 07/03/18 11:31 mild withdrawal sx Plan: continue detox increase fluids protonix 40mg daily d/c in am
[2018-07-03 21:26] VITALS: TEMP 98.2
[2018-07-03] MEDS: THIAMINE HCL 100 MG TABLET (FP) PO SCH (22:21)
[2018-07-03] MEDS: MELATONIN 5 MG TABLETS PO PRN (22:23)
[2018-07-03] MEDS: traZODone HCL 50 MG TABLET (FP) PO SCH (22:24)
[2018-07-04] MEDS: METHADONE HCL 40 MG DISPERSABLE TABLET PO SCH (06:08)
[2018-07-04] MEDS: INSULIN SLIDING SCALE (NOVOLOG) 1 VIAL SQ SCH (06:09)
[2018-07-04] MEDS: metFORMIN HCL 500 MG TABLET (FP) PO SCH (06:09)
[2018-07-04 06:21] VITALS: BP 138/83; PULSE 94
--- NOTE | 2018-07-04 16:01 | DS ---
[facility] Detox Discharge Summary Admission Date: 06/29/18 Discharge Date: 07/04/18 - History Present History: Alcohol Dependence, Opioid Dependence, Sedative Dependence, MMTP Additional Comments: PATIENT LEFT DETOX UNIT PRIOR TO TIME IN WHICH CULTURE ROOM WORKER WAS PRESENT ON UNIT TO CONDUCT DISCHARGE INTERVIEW ASSESSMENT. PER GLOBAL SALES DIRECTOR Yosvany LINARES, PATIENT GOING TO [facility] ([place], [place]) AND RETURNING TO [facility] FOR AFTERCARE. Pertinent Past History: M.M.T.P., Acid Reflux, Asthma, Type II DM, Hep C, HTN, Nicotine Dependence, History Of Cardiac Arrythmia, History Of Depression. - Physical Exam Results Vital Signs: Vital Signs Temperature 98.2 F 07/04/18 06:20 Pulse Rate 94 H 07/04/18 06:20 Respiratory Rate 18 07/04/18 06:20 Blood Pressure 138/83 07/04/18 06:20 O2 Sat by Pulse Oximetry (%) Pertinent Admission Physical Exam Findings: WITHDRAWAL SYMPTOMS. Laboratory Tests 06/29/18 06/29/18 06/30/18 12:27 16:31 07:01 WBC RBC Hgb Hct MCV MCH MCHC RDW Plt Count MPV Sodium Potassium Chloride Carbon Dioxide Anion Gap BUN Creatinine Creat Clearance w eGFR POC Glucometer 144 120 121 Random Glucose Calcium Total Bilirubin AST ALT Alkaline Phosphatase Total Protein Albumin Urine Color Urine Appearance Urine pH Ur Specific [place] Urine Protein Urine Glucose (UA) Urine Ketones Urine Blood Urine Nitrite Urine Bilirubin Urine Urobilinogen Ur Leukocyte Esterase Urine WBC (Auto) Urine RBC (Auto) Urine Casts (Auto) U Epithel Cells (Auto) Urine Bacteria (Auto) RPR Titer 06/30/18 06/30/18 06/30/18 07:15 07:15 07:15 WBC 7.5 RBC 4.53 Hgb 13.8 Hct 40.5 MCV 89.5 MCH 30.5 MCHC 34.1 RDW 13.1 Plt Count 210 D MPV 9.0 Sodium 139 Potassium 3.5 Chloride 104 Carbon Dioxide 30 Anion Gap 5 L BUN 15 Creatinine 0.8 Creat Clearance w eGFR 106.01 POC Glucometer Random Glucose 114 H Calcium 8.3 L Total Bilirubin 0.3 AST 28 ALT 37 Alkaline Phosphatase 111 Total Protein 6.9 Albumin 2.9 L Urine Color Urine Appearance Urine pH Ur Specific [place] Urine Protein Urine Glucose (UA) Urine Ketones Urine Blood Urine Nitrite Urine Bilirubin Urine Urobilinogen Ur Leukocyte Esterase Urine WBC (Auto) Urine RBC (Auto) Urine Casts (Auto) U Epithel Cells (Auto) Urine Bacteria (Auto) RPR Titer Nonreactive 06/30/18 07/01/18 07/01/18 16:21 05:16 16:17 WBC RBC Hgb Hct MCV MCH MCHC RDW Plt Count MPV Sodium Potassium Chloride Carbon Dioxide Anion Gap BUN Creatinine Creat Clearance w eGFR POC Glucometer 157 131 143 Random Glucose Calcium Total Bilirubin AST ALT Alkaline Phosphatase Total Protein Albumin Urine Color Urine Appearance Urine pH Ur Specific [place] Urine Protein Urine Glucose (UA) Urine Ketones Urine Blood Urine Nitrite Urine Bilirubin Urine Urobilinogen Ur Leukocyte Esterase Urine WBC (Auto) Urine RBC (Auto) Urine Casts (Auto) U Epithel Cells (Auto) Urine Bacteria (Auto) RPR Titer 07/02/18 07/02/18 07/02/18 05:59 07:00 16:35 WBC RBC Hgb Hct MCV MCH MCHC RDW Plt Count MPV Sodium Potassium Chloride Carbon Dioxide Anion Gap BUN Creatinine Creat Clearance w eGFR POC Glucometer 101 125 Random Glucose Calcium Total Bilirubin AST ALT Alkaline Phosphatase Total Protein Albumin Urine Color Yellow Urine Appearance Clear Urine pH 7.5 D Ur Specific [place] 1.011 Urine Protein 1+ H Urine Glucose (UA) Negative Urine Ketones Negative Urine Blood Negative Urine Nitrite Negative Urine Bilirubin Negative Urine Urobilinogen 1.0 Ur Leukocyte Esterase Negative Urine WBC (Auto) 0 Urine RBC (Auto) 0 Urine Casts (Auto) 0 U Epithel Cells (Auto) 0.1 Urine Bacteria (Auto) 1.9 RPR Titer 07/03/18 07/03/18 07/04/18 06:00 16:37 06:04 WBC RBC Hgb Hct MCV MCH MCHC RDW Plt Count MPV Sodium Potassium Chloride Carbon Dioxide Anion Gap BUN Creatinine Creat Clearance w eGFR POC Glucometer 117 149 115 Random Glucose Calcium Total Bilirubin AST ALT Alkaline Phosphatase Total Protein Albumin Urine Color Urine Appearance Urine pH Ur Specific [place] Urine Protein Urine Glucose (UA) Urine Ketones Urine Blood Urine Nitrite Urine Bilirubin Urine Urobilinogen Ur Leukocyte Esterase Urine WBC (Auto) Urine RBC (Auto) Urine Casts (Auto) U Epithel Cells (Auto) Urine Bacteria (Auto) RPR Titer LABS NOTED. - Treatment Hospital Course: Detox Protocol Followed, Detoxed Safely, Responded well, Discharged Condition Good Patient has Accepted a Rehab Referral to: PATIENT GOING TO [facility] ([place], [place]) AND START MMTP [place]. - Medication Discharge Medications: Ambulatory Orders Docusate Sodium [Colace] 100 mg PO DAILY 12/17/17 Lisinopril [Prinivil] 40 mg PO DAILY 12/17/17 Metformin HCl [Glucophage] 1,000 mg PO BID 12/17/17 Nifedipine ER [Procardia XL -] 60 mg PO DAILY 12/17/17 Pantoprazole Sodium 40 mg PO DAILY 12/17/17 Methadone [Dolophine -] 120 mg PO DAILY 12/20/17 traZODone HCL [Trazodone HCl] 50 mg PO HS #30 tablet 01/03/18 Albuterol Sulfate Inhaler - [Ventolin HFA Inhaler -] 1 - 2 inh IH Q4H PRN #1 inhaler 07/02/18 - Diagnosis (1) Alcohol dependence with withdrawal Status: Acute Qualifiers: Complication of substance-induced condition: uncomplicated Qualified Code(s ): F10.230 - Alcohol dependence with withdrawal, uncomplicated (2) Sedative, hypnotic or anxiolytic dependence, uncomplicated Status: Acute (3) Acid reflux Status: Chronic Qualifiers: Esophagitis presence: without esophagitis Qualified Code(s): K21.9 - Gastro -esophageal reflux disease without esophagitis (4) Asthma Status: Chronic Qualifiers: Asthma severity: mild Asthma persistence: intermittent Asthma complication type: with acute exacerbation Qualified Code(s): J45.21 - Mild intermittent asthma with (acute) exacerbation (5) Cocaine dependence Status: Chronic Qualifiers: Substance use status: uncomplicated Qualified Code(s): F14.20 - Cocaine dependence, uncomplicated (6) Diabetes mellitus type 2 in obese Status: Chronic (7) Hepatitis C Status: Chronic Qualifiers: Viral hepatitis chronicity: chronic Hepatic coma status: without hepatic coma Qualified Code(s): B18.2 - Chronic viral hepatitis C (8) Hypertension Status: Chronic Qualifiers: Hypertension type: essential hypertension Qualified Code(s): I10 - Essential (primary) hypertension (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
== END 2018-07-04 07:20 | disposition home or self-care (01) | DRG 773 ==
LOC: YASAS 10:18 → Y6N 12:10
PROVIDERS: ADMIT Surgery; ATTEND Surgery
PROC: HZ2ZZZZ Detoxification Services for Substance Abuse Treatment (ICD-10-PCS; principal; 2018-07-02)
DX: F11.23 Opioid dependence with withdrawal (principal); F10.230 Alcohol dependence with withdrawal, uncomplicated; F13.230 Sedative, hypnotic or anxiolytic dependence with withdrawal, uncomplicated; F14.20 Cocaine dependence, uncomplicated; F11.20 Opioid dependence, uncomplicated; F17.213 Nicotine dependence, cigarettes, with withdrawal; I10 Essential (primary) hypertension; J45.21 Mild intermittent asthma with (acute) exacerbation; K21.9 Gastro-esophageal reflux disease without esophagitis; B18.2 Chronic viral hepatitis C; E11.9 Type 2 diabetes mellitus without complications; Z91.013 Allergy to seafood
CPT/HCPCS: 36415; 80053; 81003; 82962; 85027; 86593; J0735

== ENCOUNTER 2020-04-08 12:28 | Inpatient (IN) | payer OTHER ==
[2020-04-08 15:10] VITALS: BMI 50.1
[2020-04-08] MEDS ORDERED: MAG HYDROX/AL HYDROX/SIMETH 30 ML UNIT-DOSE CUP PO PRN (15:10)
[2020-04-08] MEDS ORDERED: MAGNESIUM HYDROX 2400MG/30ML ORAL SUSPENSION 30 ML CUP PO PRN (15:10)
[2020-04-08] MEDS ORDERED: BISMUTH SUBSALICYLATE 524 MG/30 ML UD PO PRN (15:10)
[2020-04-08] MEDS ORDERED: IBUPROFEN 400 MG TABLET (FP) PO PRN (15:10)
[2020-04-08] MEDS ORDERED: NICOTINE POLACRILEX 2 MG GUM BUC PRN (15:10)
[2020-04-08] MEDS ORDERED: ONDANSETRON *ODT* 4 MG TABLET SL PRN (15:10)
[2020-04-08] MEDS ORDERED: ACETAMINOPHEN 325 MG TABLET (FP) PO PRN (15:10)
[2020-04-08] MEDS ORDERED: chlordiazePOXIDE HCL 25 MG CAPSULE PO PRN (15:10)
[2020-04-08] MEDS ORDERED: MENTHOL/PHENOL 1 EACH UD MM PRN (15:10)
[2020-04-08] MEDS ORDERED: MAGNESIUM CITRATE 300 ML BOTTLE PO PRN (15:10)
[2020-04-08] MEDS ORDERED: ALBUTEROL SO4 HFA INHALER IH PRN (15:13)
[2020-04-08] MEDS: chlordiazePOXIDE HCL 25 MG CAPSULE PO SCH ×2 (17:29→23:01)
[2020-04-08 17:30] LABS: HEMOGLOBIN 13.3 GM/dL (11.7-16.9); MCHC 33.3 g/dl (32.0-35.9); MEAN CELL VOLUME 90.1 fl (80-96); MEAN PLT VOLUME 9.9 fl (7.5-11.1); PLATELET COUNT 214 K/MM3 (134-434); RBC 4.44 M/mm3 (4.00-5.60); RDW 13.6 % (11.9-15.9); WHITE BLOOD COUNT 9.3 K/mm3 (4.0-10.0)
[2020-04-08] MEDS: hydrOXYzine PAMOATE 25 MG CAPSULE (FP) PO SCH ×2 (17:30→23:03)
[2020-04-08 17:32] LABS: POTASSIUM 3.5 mmol/L (3.5-5.1)
[2020-04-08 17:41] LABS: CALCIUM 9.3 mg/dL (8.5-10.1)
[2020-04-08 17:42] LABS: ALBUMIN 3.6 g/dl (3.4-5.0); BLOOD UREA NITROGEN 25.2 mg/dL (7-18)
[2020-04-08 17:45] LABS: CREATININE 1.9 mg/dL (0.55-1.3)
[2020-04-08 17:46] LABS: BILIRUBIN,TOTAL 0.6 mg/dL (0.2-1); TOT PROT 7.6 g/dl (6.4-8.2)
[2020-04-08] MEDS: NICOTINE 21 MG/24 HOURS TOPICAL PATCH TD SCH (19:08)
[2020-04-08] MEDS: PRENATAL VITAMINS W/ FOLIC ACID TABLET (FP) PO SCH (19:30)
[2020-04-08] MEDS: THIAMINE HCL 100 MG TABLET (FP) PO SCH (23:01)
[2020-04-08] MEDS: MELATONIN 5 MG TABLETS PO SCH (23:03)
[2020-04-09] MEDS: chlordiazePOXIDE HCL 25 MG CAPSULE PO SCH ×4 (05:53→22:22)
[2020-04-09] MEDS: METHOCARBAMOL 500 MG TABLET PO PRN (05:57)
[2020-04-09] MEDS: hydrOXYzine PAMOATE 25 MG CAPSULE (FP) PO SCH ×5 (06:00→22:22)
[2020-04-09] MEDS: metFORMIN HCL 500 MG TABLET (FP) PO SCH ×2 (06:47→16:43)
[2020-04-09] MEDS ORDERED: METHADONE HCL 10 MG TABLET PO SCH (08:15)
[2020-04-09] MEDS ORDERED: METHADONE HCL 10 MG TABLET ONE (09:09)
[2020-04-09] MEDS ORDERED: METHADONE HCL 40 MG DISPERSABLE TABLET ONE (09:10)
[2020-04-09] MEDS: METHADONE 80 MG, METHADONE 30 MG PO SCH (09:17)
[2020-04-09] MEDS: LISINOPRIL 20 MG TABLET PO SCH (09:18)
[2020-04-09] MEDS: NIFEdipine E.R 60 MG TABLET PO SCH (09:18)
[2020-04-09] MEDS: PANTOPRAZOLE 40 MG TABLET PO SCH (09:18)
[2020-04-09] MEDS: DOCUSATE SODIUM 100 MG CAPSULE (FP) PO SCH (09:18)
[2020-04-09] MEDS: PRENATAL VITAMINS W/ FOLIC ACID TABLET (FP) PO SCH (10:13)
[2020-04-09] MEDS: NICOTINE 21 MG/24 HOURS TOPICAL PATCH TD SCH (10:16)
[2020-04-09] MEDS: LIDOCAINE 5% TOPICAL PATCH TP SCH (11:38)
[2020-04-09] MEDS: MELATONIN 5 MG TABLETS PO SCH (22:21)
[2020-04-09] MEDS: THIAMINE HCL 100 MG TABLET (FP) PO SCH (22:21)
[2020-04-09] MEDS: LIDOCAINE PATCH REMOVAL MC SCH (22:21)
[2020-04-09] MEDS: traZODone HCL 50 MG TABLET (FP) PO PRN (22:24)
[2020-04-10] MEDS ORDERED: METHADONE HCL 10 MG TABLET ONE (03:45)
[2020-04-10] MEDS ORDERED: METHADONE HCL 40 MG DISPERSABLE TABLET ONE (03:46)
[2020-04-10] MEDS: chlordiazePOXIDE HCL 25 MG CAPSULE PO SCH ×4 (05:57→22:24)
[2020-04-10] MEDS: hydrOXYzine PAMOATE 25 MG CAPSULE (FP) PO SCH ×5 (05:57→22:23)
[2020-04-10] MEDS: METHOCARBAMOL 500 MG TABLET PO PRN (05:58)
[2020-04-10] MEDS: METHADONE 80 MG, METHADONE 30 MG PO SCH (06:00)
[2020-04-10] MEDS: metFORMIN HCL 500 MG TABLET (FP) PO SCH ×2 (06:01→17:45)
[2020-04-10] MEDS: NICOTINE 21 MG/24 HOURS TOPICAL PATCH TD SCH (10:11)
[2020-04-10] MEDS: LISINOPRIL 20 MG TABLET PO SCH (10:12)
[2020-04-10] MEDS: NIFEdipine E.R 60 MG TABLET PO SCH (10:12)
[2020-04-10] MEDS: DOCUSATE SODIUM 100 MG CAPSULE (FP) PO SCH (10:13)
[2020-04-10] MEDS: LIDOCAINE 5% TOPICAL PATCH TP SCH (16:23)
[2020-04-10] MEDS: PRENATAL VITAMINS W/ FOLIC ACID TABLET (FP) PO SCH (16:24)
[2020-04-10] MEDS: PANTOPRAZOLE 40 MG TABLET PO SCH (16:25)
[2020-04-10] MEDS: amLODIPine BESYLATE 10 MG TABLET (FP) PO SCH (17:47)
[2020-04-10] MEDS: THIAMINE HCL 100 MG TABLET (FP) PO SCH (22:22)
[2020-04-10] MEDS: LIDOCAINE PATCH REMOVAL MC SCH (22:23)
[2020-04-10] MEDS: MELATONIN 5 MG TABLETS PO SCH (22:23)
[2020-04-10] MEDS: traZODone HCL 50 MG TABLET (FP) PO PRN (22:26)
[2020-04-11] MEDS ORDERED: chlordiazePOXIDE HCL 10 MG CAPSULE PO PRN
[2020-04-11] MEDS ORDERED: METHADONE HCL 40 MG DISPERSABLE TABLET ONE (03:55)
[2020-04-11] MEDS ORDERED: METHADONE HCL 10 MG TABLET ONE (03:55)
[2020-04-11] MEDS: chlordiazePOXIDE HCL 10 MG CAPSULE PO SCH ×4 (06:04→22:36)
[2020-04-11] MEDS: METHADONE 80 MG, METHADONE 30 MG PO SCH (06:05)
[2020-04-11] MEDS: metFORMIN HCL 500 MG TABLET (FP) PO SCH ×2 (06:05→16:33)
[2020-04-11] MEDS: hydrOXYzine PAMOATE 25 MG CAPSULE (FP) PO SCH ×5 (07:11→22:38)
[2020-04-11] MEDS: NIFEdipine E.R 60 MG TABLET PO SCH (09:57)
[2020-04-11] MEDS: DOCUSATE SODIUM 100 MG CAPSULE (FP) PO SCH (09:57)
[2020-04-11] MEDS: amLODIPine BESYLATE 10 MG TABLET (FP) PO SCH (09:57)
[2020-04-11] MEDS: LISINOPRIL 20 MG TABLET PO SCH (09:57)
[2020-04-11] MEDS: LIDOCAINE 5% TOPICAL PATCH TP SCH (10:04)
[2020-04-11] MEDS: PANTOPRAZOLE 40 MG TABLET PO SCH (10:05)
[2020-04-11] MEDS: PRENATAL VITAMINS W/ FOLIC ACID TABLET (FP) PO SCH (10:05)
[2020-04-11 12:20] LABS: POTASSIUM 4.1 mmol/L (3.5-5.1)
[2020-04-11 12:24] LABS: BLOOD UREA NITROGEN 14.6 mg/dL (7-18)
[2020-04-11 12:25] LABS: CREATININE 0.9 mg/dL (0.55-1.3)
[2020-04-11 12:33] LABS: CALCIUM 8.9 mg/dL (8.5-10.1)
[2020-04-11] MEDS ORDERED: METHOCARBAMOL 750 MG TAB PO ONE (12:45)
[2020-04-11] MEDS: NICOTINE 21 MG/24 HOURS TOPICAL PATCH TD SCH (13:39)
[2020-04-11] MEDS: HYDROCHLOROTHIAZIDE 25 MG TABLET (FP) PO SCH (13:41)
[2020-04-11] MEDS: THIAMINE HCL 100 MG TABLET (FP) PO SCH (22:35)
[2020-04-11] MEDS: METHOCARBAMOL 500 MG TABLET PO PRN (22:35)
[2020-04-11] MEDS: MELATONIN 5 MG TABLETS PO SCH (22:37)
[2020-04-11] MEDS: LIDOCAINE PATCH REMOVAL MC SCH (22:38)
[2020-04-11] MEDS: traZODone HCL 50 MG TABLET (FP) PO PRN (22:41)
[2020-04-12] MEDS ORDERED: METHADONE HCL 10 MG TABLET ONE (04:34)
[2020-04-12] MEDS ORDERED: METHADONE HCL 40 MG DISPERSABLE TABLET ONE (04:34)
[2020-04-12] MEDS: METHADONE 80 MG, METHADONE 30 MG PO SCH (05:46)
[2020-04-12] MEDS: chlordiazePOXIDE HCL 10 MG CAPSULE PO SCH ×2 (05:48→18:33)
[2020-04-12] MEDS: hydrOXYzine PAMOATE 25 MG CAPSULE (FP) PO SCH ×5 (05:55→22:43)
[2020-04-12] MEDS: metFORMIN HCL 500 MG TABLET (FP) PO SCH ×2 (06:01→18:33)
[2020-04-12] MEDS: LISINOPRIL 20 MG TABLET PO SCH (10:20)
[2020-04-12] MEDS: NIFEdipine E.R 60 MG TABLET PO SCH (10:20)
[2020-04-12] MEDS: NICOTINE 21 MG/24 HOURS TOPICAL PATCH TD SCH (10:20)
[2020-04-12] MEDS: LIDOCAINE 5% TOPICAL PATCH TP SCH (10:21)
[2020-04-12] MEDS: amLODIPine BESYLATE 10 MG TABLET (FP) PO SCH (10:21)
[2020-04-12] MEDS: DOCUSATE SODIUM 100 MG CAPSULE (FP) PO SCH (10:21)
[2020-04-12] MEDS: HYDROCHLOROTHIAZIDE 25 MG TABLET (FP) PO SCH (10:21)
[2020-04-12] MEDS: PANTOPRAZOLE 40 MG TABLET PO SCH (10:21)
[2020-04-12] MEDS: PRENATAL VITAMINS W/ FOLIC ACID TABLET (FP) PO SCH (10:21)
[2020-04-12] MEDS: ACETAMINOPHEN 325 MG TABLET (FP) PO PRN ×2 (10:23→18:34)
[2020-04-12] MEDS: LIDOCAINE PATCH REMOVAL MC SCH (22:43)
[2020-04-12] MEDS: THIAMINE HCL 100 MG TABLET (FP) PO SCH (22:43)
[2020-04-12] MEDS: MELATONIN 5 MG TABLETS PO SCH (22:44)
[2020-04-12] MEDS: METHYL SALICYLATE/MENTHOL OINT 30 GM TUBE TP SCH (22:44)
[2020-04-12] MEDS: traZODone HCL 50 MG TABLET (FP) PO PRN (22:45)
[2020-04-13] MEDS ORDERED: chlordiazePOXIDE HCL 10 MG CAPSULE PO ONE (05:00)
[2020-04-13] MEDS ORDERED: METHADONE HCL 40 MG DISPERSABLE TABLET ONE (05:00)
[2020-04-13] MEDS ORDERED: METHADONE HCL 10 MG TABLET ONE (05:00)
[2020-04-13] MEDS: metFORMIN HCL 500 MG TABLET (FP) PO SCH (06:28)
[2020-04-13] MEDS: hydrOXYzine PAMOATE 25 MG CAPSULE (FP) PO SCH ×3 (06:28→13:32)
[2020-04-13] MEDS: METHADONE 80 MG, METHADONE 30 MG PO SCH (06:29)
[2020-04-13] MEDS: ACETAMINOPHEN 325 MG TABLET (FP) PO PRN (06:35)
[2020-04-13 09:39] VITALS: BP 153/83; PULSE 96; TEMP 98
[2020-04-13] MEDS: NIFEdipine E.R 60 MG TABLET PO SCH (10:12)
[2020-04-13] MEDS: PRENATAL VITAMINS W/ FOLIC ACID TABLET (FP) PO SCH (10:12)
[2020-04-13] MEDS: NICOTINE 21 MG/24 HOURS TOPICAL PATCH TD SCH (10:12)
[2020-04-13] MEDS: HYDROCHLOROTHIAZIDE 25 MG TABLET (FP) PO SCH (10:12)
[2020-04-13] MEDS: DOCUSATE SODIUM 100 MG CAPSULE (FP) PO SCH (10:12)
[2020-04-13] MEDS: amLODIPine BESYLATE 10 MG TABLET (FP) PO SCH (10:12)
[2020-04-13] MEDS: LISINOPRIL 20 MG TABLET PO SCH (10:13)
[2020-04-13] MEDS: LIDOCAINE 5% TOPICAL PATCH TP SCH (10:13)
[2020-04-13] MEDS: METHYL SALICYLATE/MENTHOL OINT 30 GM TUBE TP SCH (10:13)
[2020-04-13] MEDS: PANTOPRAZOLE 40 MG TABLET PO SCH (10:13)
== END 2020-04-13 13:35 | disposition other institution (70) | DRG 773 ==
LOC: YASAS 12:28 → Y6N 16:19
PROVIDERS: ADMIT Allergy & Immunology; ATTEND Allergy & Immunology
PROC: HZ2ZZZZ Detoxification Services for Substance Abuse Treatment (ICD-10-PCS; principal; 2020-04-08)
DX: F10.20 Alcohol dependence, uncomplicated (principal); F13.230 Sedative, hypnotic or anxiolytic dependence with withdrawal, uncomplicated; F14.20 Cocaine dependence, uncomplicated; F11.20 Opioid dependence, uncomplicated; F17.210 Nicotine dependence, cigarettes, uncomplicated; F19.282 Other psychoactive substance dependence with psychoactive substance-induced sleep disorder; I10 Essential (primary) hypertension; E11.9 Type 2 diabetes mellitus without complications; Z79.84 Long term (current) use of oral hypoglycemic drugs; G47.00 Insomnia, unspecified; J45.20 Mild intermittent asthma, uncomplicated; K21.9 Gastro-esophageal reflux disease without esophagitis; M25.561 Pain in right knee; R79.89 Other specified abnormal findings of blood chemistry; E66.01 Morbid (severe) obesity due to excess calories; Z68.43 Body mass index [BMI] 50.0-59.9, adult; Z99.89 Dependence on other enabling machines and devices; Z91.013 Allergy to seafood; Z59.0 Homelessness; Z56.0 Unemployment, unspecified
CPT/HCPCS: 36415; 80048; 80053; 82962; 85027; 86780; 87389; C9803; Q0162; U0003

== ENCOUNTER 2020-04-13 14:12 | Inpatient (IN) | payer OTHER ==
[2020-04-13] MEDS ORDERED: NICOTINE POLACRILEX 2 MG GUM BUC PRN (15:12)
[2020-04-13] MEDS ORDERED: MAG HYDROX/AL HYDROX/SIMETH 30 ML UNIT-DOSE CUP PO PRN (15:12)
[2020-04-13] MEDS ORDERED: guaiFENesin 200 MG/10 ML 10 ML UNIT-DOSE CUPS PO PRN (15:12)
[2020-04-13] MEDS ORDERED: MENTHOL/PHENOL 1 EACH UD MM PRN (15:12)
[2020-04-13] MEDS ORDERED: MAGNESIUM CITRATE 300 ML BOTTLE PO PRN (15:12)
[2020-04-13] MEDS ORDERED: LOPERAMIDE HCL 2 MG CAPSULE PO PRN (15:12)
[2020-04-13] MEDS ORDERED: P-EPHED 60MG/TRIPROLIDI 2.5MG TABLET PO PRN (15:12)
[2020-04-13] MEDS ORDERED: MAGNESIUM HYDROX 2400MG/30ML ORAL SUSPENSION 30 ML CUP PO PRN (15:12)
[2020-04-13] MEDS: metFORMIN HCL 500 MG TABLET (FP) PO SCH (16:57)
[2020-04-13] MEDS: MELATONIN 5 MG TABLETS PO SCH (21:23)
[2020-04-13] MEDS: THIAMINE HCL 100 MG TABLET (FP) PO SCH (21:23)
[2020-04-14] MEDS: ACETAMINOPHEN 325 MG TABLET (FP) PO PRN ×2 (03:04→22:13)
[2020-04-14] MEDS ORDERED: METHADONE HCL 10 MG TABLET PO SCH (06:00)
[2020-04-14] MEDS ORDERED: METHADONE HCL 40 MG DISPERSABLE TABLET ONE (07:12)
[2020-04-14] MEDS ORDERED: METHADONE HCL 10 MG TABLET ONE (07:12)
[2020-04-14] MEDS: METHADONE 80 MG, METHADONE 30 MG PO SCH (07:17)
[2020-04-14] MEDS: metFORMIN HCL 500 MG TABLET (FP) PO SCH ×2 (07:18→17:01)
[2020-04-14] MEDS: DOCUSATE SODIUM 100 MG CAPSULE (FP) PO SCH (09:32)
[2020-04-14] MEDS: HYDROCHLOROTHIAZIDE 25 MG TABLET (FP) PO SCH (09:33)
[2020-04-14] MEDS: LISINOPRIL 20 MG TABLET PO SCH (09:33)
[2020-04-14] MEDS: PRENATAL VITAMINS W/ FOLIC ACID TABLET (FP) PO SCH (09:33)
[2020-04-14] MEDS: NICOTINE 7 MG/24 HOURS TOPICAL PATCH TD SCH (09:33)
[2020-04-14] MEDS: NIFEdipine E.R 60 MG TABLET PO SCH (09:34)
[2020-04-14] MEDS: PANTOPRAZOLE 40 MG TABLET PO SCH (09:34)
[2020-04-14] MEDS ORDERED: amLODIPine BESYLATE 10 MG TABLET (FP) PO SCH (10:00)
[2020-04-14] MEDS ORDERED: PATIENT'S OWN MEDICATION (NON-FORMULARY) (Lisinopril/Hydrochlorothiazide [Lisinopril-Hctz PO SCH (10:00)
[2020-04-14] MEDS: MELATONIN 5 MG TABLETS PO SCH (22:12)
[2020-04-14] MEDS: THIAMINE HCL 100 MG TABLET (FP) PO SCH (22:12)
[2020-04-14] MEDS: traZODone HCL 50 MG TABLET (FP) PO SCH (22:12)
[2020-04-14] MEDS: ALBUTEROL SO4 HFA INHALER IH PRN (22:12)
[2020-04-14] MEDS: hydrOXYzine PAMOATE 25 MG CAPSULE (FP) PO PRN (22:13)
[2020-04-15] MEDS ORDERED: METHADONE HCL 40 MG DISPERSABLE TABLET ONE (03:23)
[2020-04-15] MEDS ORDERED: METHADONE HCL 10 MG TABLET ONE (03:23)
[2020-04-15] MEDS: metFORMIN HCL 500 MG TABLET (FP) PO SCH ×2 (06:32→17:53)
[2020-04-15] MEDS: METHADONE 80 MG, METHADONE 30 MG PO SCH (06:33)
[2020-04-15] MEDS: PANTOPRAZOLE 40 MG TABLET PO SCH (09:56)
[2020-04-15] MEDS: HYDROCHLOROTHIAZIDE 25 MG TABLET (FP) PO SCH (09:56)
[2020-04-15] MEDS: PRENATAL VITAMINS W/ FOLIC ACID TABLET (FP) PO SCH (09:56)
[2020-04-15] MEDS: DOCUSATE SODIUM 100 MG CAPSULE (FP) PO SCH (09:57)
[2020-04-15] MEDS: NICOTINE 7 MG/24 HOURS TOPICAL PATCH TD SCH (09:57)
[2020-04-15] MEDS: LISINOPRIL 20 MG TABLET PO SCH (09:57)
[2020-04-15] MEDS: NIFEdipine E.R 60 MG TABLET PO SCH (09:57)
[2020-04-15] MEDS: ACETAMINOPHEN 325 MG TABLET (FP) PO PRN (09:58)
[2020-04-15] MEDS ORDERED: cloNIDine HCL 0.1 MG TABLET PO ONE (14:57)
[2020-04-15] MEDS: traZODone HCL 50 MG TABLET (FP) PO SCH (21:41)
[2020-04-15] MEDS: MELATONIN 5 MG TABLETS PO SCH (21:41)
[2020-04-15] MEDS: IBUPROFEN 400 MG TABLET (FP) PO PRN (21:41)
[2020-04-15] MEDS: hydrOXYzine PAMOATE 25 MG CAPSULE (FP) PO PRN (21:41)
[2020-04-15] MEDS: THIAMINE HCL 100 MG TABLET (FP) PO SCH (21:41)
[2020-04-16] MEDS: IBUPROFEN 400 MG TABLET (FP) PO PRN (02:45)
[2020-04-16] MEDS ORDERED: METHADONE HCL 10 MG TABLET ONE (06:25)
[2020-04-16] MEDS: HYDROCHLOROTHIAZIDE 25 MG TABLET (FP) PO SCH (06:25)
[2020-04-16] MEDS: NIFEdipine E.R 60 MG TABLET PO SCH (06:25)
[2020-04-16] MEDS ORDERED: METHADONE HCL 40 MG DISPERSABLE TABLET ONE (06:25)
[2020-04-16] MEDS: METHADONE 80 MG, METHADONE 30 MG PO SCH (06:28)
[2020-04-16] MEDS: metFORMIN HCL 500 MG TABLET (FP) PO SCH ×2 (06:29→17:16)
[2020-04-16] MEDS ORDERED: LISINOPRIL 20 MG TABLET PO SCH (07:00)
[2020-04-16] MEDS: DOCUSATE SODIUM 100 MG CAPSULE (FP) PO SCH (10:10)
[2020-04-16] MEDS: PANTOPRAZOLE 40 MG TABLET PO SCH (10:10)
[2020-04-16] MEDS: hydrOXYzine PAMOATE 25 MG CAPSULE (FP) PO PRN ×3 (10:10→21:19)
[2020-04-16] MEDS: NICOTINE 7 MG/24 HOURS TOPICAL PATCH TD SCH (10:10)
[2020-04-16] MEDS: PRENATAL VITAMINS W/ FOLIC ACID TABLET (FP) PO SCH (10:10)
[2020-04-16] MEDS: hydrALAZINE HCL 50 MG TABLET (FP) PO SCH ×2 (13:35→21:19)
[2020-04-16] MEDS: ACETAMINOPHEN 325 MG TABLET (FP) PO PRN (13:36)
[2020-04-16] MEDS: cloNIDine HCL 0.1 MG TABLET PO SCH ×2 (13:36→21:19)
[2020-04-16] MEDS ORDERED: cloNIDine HCL 0.1 MG TABLET PO SCH (14:00)
[2020-04-16] MEDS: MELATONIN 5 MG TABLETS PO SCH (21:19)
[2020-04-16] MEDS: traZODone HCL 50 MG TABLET (FP) PO SCH (21:19)
[2020-04-16] MEDS: THIAMINE HCL 100 MG TABLET (FP) PO SCH (21:19)
[2020-04-16] MEDS: ATORVASTATIN CA 40 MG TABLET (FP) PO SCH (21:20)
[2020-04-17] MEDS ORDERED: METHADONE HCL 10 MG TABLET ONE (03:53)
[2020-04-17] MEDS ORDERED: METHADONE HCL 40 MG DISPERSABLE TABLET ONE (03:53)
[2020-04-17] MEDS: METHADONE 80 MG, METHADONE 30 MG PO SCH (06:07)
[2020-04-17] MEDS: metFORMIN HCL 500 MG TABLET (FP) PO SCH ×2 (06:08→16:37)
[2020-04-17] MEDS: HYDROCHLOROTHIAZIDE 25 MG TABLET (FP) PO SCH (06:08)
[2020-04-17] MEDS: hydrALAZINE HCL 50 MG TABLET (FP) PO SCH ×3 (06:08→21:20)
[2020-04-17] MEDS: NIFEdipine E.R 60 MG TABLET PO SCH (06:10)
[2020-04-17] MEDS: cloNIDine HCL 0.1 MG TABLET PO SCH ×3 (06:10→21:20)
[2020-04-17] MEDS: LISINOPRIL 20 MG TABLET PO SCH (06:11)
[2020-04-17] MEDS: PRENATAL VITAMINS W/ FOLIC ACID TABLET (FP) PO SCH (09:43)
[2020-04-17] MEDS: DOCUSATE SODIUM 100 MG CAPSULE (FP) PO SCH (09:43)
[2020-04-17] MEDS: PANTOPRAZOLE 40 MG TABLET PO SCH (09:43)
[2020-04-17] MEDS: NICOTINE 7 MG/24 HOURS TOPICAL PATCH TD SCH (09:44)
[2020-04-17] MEDS: ALBUTEROL SO4 HFA INHALER IH PRN (11:15)
[2020-04-17] MEDS: ACETAMINOPHEN 325 MG TABLET (FP) PO PRN (13:36)
[2020-04-17] MEDS: hydrOXYzine PAMOATE 25 MG CAPSULE (FP) PO PRN (16:39)
[2020-04-17] MEDS: THIAMINE HCL 100 MG TABLET (FP) PO SCH (21:20)
[2020-04-17] MEDS: traZODone HCL 50 MG TABLET (FP) PO SCH (21:20)
[2020-04-17] MEDS: ATORVASTATIN CA 40 MG TABLET (FP) PO SCH (21:20)
[2020-04-17] MEDS: MELATONIN 5 MG TABLETS PO SCH (21:20)
[2020-04-18] MEDS ORDERED: METHADONE HCL 10 MG TABLET ONE (03:29)
[2020-04-18] MEDS ORDERED: METHADONE HCL 40 MG DISPERSABLE TABLET ONE (03:29)
[2020-04-18] MEDS: METHADONE 80 MG, METHADONE 30 MG PO SCH (07:08)
[2020-04-18] MEDS: HYDROCHLOROTHIAZIDE 25 MG TABLET (FP) PO SCH (07:09)
[2020-04-18] MEDS: LISINOPRIL 20 MG TABLET PO SCH (07:09)
[2020-04-18] MEDS: metFORMIN HCL 500 MG TABLET (FP) PO SCH ×2 (07:09→16:49)
[2020-04-18] MEDS: NIFEdipine E.R 60 MG TABLET PO SCH (07:10)
[2020-04-18] MEDS: hydrALAZINE HCL 50 MG TABLET (FP) PO SCH ×3 (07:10→22:10)
[2020-04-18] MEDS: cloNIDine HCL 0.1 MG TABLET PO SCH ×3 (07:10→22:10)
[2020-04-18] MEDS: PRENATAL VITAMINS W/ FOLIC ACID TABLET (FP) PO SCH (09:53)
[2020-04-18] MEDS: PANTOPRAZOLE 40 MG TABLET PO SCH (09:54)
[2020-04-18] MEDS: DOCUSATE SODIUM 100 MG CAPSULE (FP) PO SCH (09:54)
[2020-04-18] MEDS: NICOTINE 7 MG/24 HOURS TOPICAL PATCH TD SCH (09:54)
[2020-04-18] MEDS: ACETAMINOPHEN 325 MG TABLET (FP) PO PRN ×2 (09:55→16:52)
[2020-04-18] MEDS: THIAMINE HCL 100 MG TABLET (FP) PO SCH (22:10)
[2020-04-18] MEDS: MELATONIN 5 MG TABLETS PO SCH (22:10)
[2020-04-18] MEDS: traZODone HCL 50 MG TABLET (FP) PO SCH (22:10)
[2020-04-18] MEDS: ATORVASTATIN CA 40 MG TABLET (FP) PO SCH (22:10)
[2020-04-19] MEDS ORDERED: METHADONE HCL 10 MG TABLET ONE (03:08)
[2020-04-19] MEDS ORDERED: METHADONE HCL 40 MG DISPERSABLE TABLET ONE (03:08)
[2020-04-19] MEDS: METHADONE 80 MG, METHADONE 30 MG PO SCH (06:29)
[2020-04-19] MEDS: metFORMIN HCL 500 MG TABLET (FP) PO SCH ×2 (06:30→17:01)
[2020-04-19] MEDS: hydrALAZINE HCL 50 MG TABLET (FP) PO SCH ×3 (06:31→21:19)
[2020-04-19] MEDS: LISINOPRIL 20 MG TABLET PO SCH (06:31)
[2020-04-19] MEDS: NIFEdipine E.R 60 MG TABLET PO SCH (06:31)
[2020-04-19] MEDS: HYDROCHLOROTHIAZIDE 25 MG TABLET (FP) PO SCH (06:31)
[2020-04-19] MEDS: cloNIDine HCL 0.1 MG TABLET PO SCH ×3 (06:32→21:19)
[2020-04-19] MEDS: DOCUSATE SODIUM 100 MG CAPSULE (FP) PO SCH (09:59)
[2020-04-19] MEDS: PANTOPRAZOLE 40 MG TABLET PO SCH (09:59)
[2020-04-19] MEDS: PRENATAL VITAMINS W/ FOLIC ACID TABLET (FP) PO SCH (09:59)
[2020-04-19] MEDS: NICOTINE 7 MG/24 HOURS TOPICAL PATCH TD SCH (10:00)
[2020-04-19] MEDS: traZODone HCL 50 MG TABLET (FP) PO SCH (21:18)
[2020-04-19] MEDS: ATORVASTATIN CA 40 MG TABLET (FP) PO SCH (21:18)
[2020-04-19] MEDS: MELATONIN 5 MG TABLETS PO SCH (21:19)
[2020-04-19] MEDS: THIAMINE HCL 100 MG TABLET (FP) PO SCH (21:19)
[2020-04-20] MEDS ORDERED: METHADONE HCL 40 MG DISPERSABLE TABLET ONE (03:43)
[2020-04-20] MEDS ORDERED: METHADONE HCL 10 MG TABLET ONE (03:43)
[2020-04-20] MEDS: hydrALAZINE HCL 50 MG TABLET (FP) PO SCH ×3 (06:57→21:41)
[2020-04-20] MEDS: METHADONE 80 MG, METHADONE 30 MG PO SCH (06:57)
[2020-04-20] MEDS: metFORMIN HCL 500 MG TABLET (FP) PO SCH ×2 (06:57→16:45)
[2020-04-20] MEDS: hydrOXYzine PAMOATE 25 MG CAPSULE (FP) PO PRN ×2 (06:57→21:40)
[2020-04-20] MEDS: LISINOPRIL 20 MG TABLET PO SCH (06:58)
[2020-04-20] MEDS: HYDROCHLOROTHIAZIDE 25 MG TABLET (FP) PO SCH (06:58)
[2020-04-20] MEDS: cloNIDine HCL 0.1 MG TABLET PO SCH ×3 (06:58→21:41)
[2020-04-20] MEDS: NIFEdipine E.R 60 MG TABLET PO SCH (06:58)
[2020-04-20] MEDS: DOCUSATE SODIUM 100 MG CAPSULE (FP) PO SCH (10:14)
[2020-04-20] MEDS: PRENATAL VITAMINS W/ FOLIC ACID TABLET (FP) PO SCH (10:14)
[2020-04-20] MEDS: PANTOPRAZOLE 40 MG TABLET PO SCH (10:14)
[2020-04-20] MEDS: IBUPROFEN 400 MG TABLET (FP) PO PRN (10:15)
[2020-04-20] MEDS: NICOTINE 7 MG/24 HOURS TOPICAL PATCH TD SCH (10:15)
[2020-04-20] MEDS: LIDOCAINE 5% TOPICAL PATCH TP SCH (12:31)
[2020-04-20] MEDS: MELATONIN 5 MG TABLETS PO SCH (21:40)
[2020-04-20] MEDS: THIAMINE HCL 100 MG TABLET (FP) PO SCH (21:40)
[2020-04-20] MEDS: ATORVASTATIN CA 40 MG TABLET (FP) PO SCH (21:41)
[2020-04-20] MEDS: LIDOCAINE PATCH REMOVAL MC SCH (21:41)
[2020-04-20] MEDS: traZODone HCL 50 MG TABLET (FP) PO SCH (21:41)
[2020-04-21] MEDS ORDERED: METHADONE HCL 40 MG DISPERSABLE TABLET ONE (03:44)
[2020-04-21] MEDS ORDERED: METHADONE HCL 10 MG TABLET ONE (03:44)
[2020-04-21] MEDS: metFORMIN HCL 500 MG TABLET (FP) PO SCH ×2 (06:18→17:11)
[2020-04-21] MEDS: METHADONE 80 MG, METHADONE 30 MG PO SCH (06:19)
[2020-04-21] MEDS: LISINOPRIL 20 MG TABLET PO SCH (06:20)
[2020-04-21] MEDS: hydrALAZINE HCL 50 MG TABLET (FP) PO SCH ×3 (06:21→21:16)
[2020-04-21] MEDS: NIFEdipine E.R 60 MG TABLET PO SCH (06:21)
[2020-04-21] MEDS: HYDROCHLOROTHIAZIDE 25 MG TABLET (FP) PO SCH (06:21)
[2020-04-21] MEDS: cloNIDine HCL 0.1 MG TABLET PO SCH ×3 (06:23→21:16)
[2020-04-21] MEDS: DOCUSATE SODIUM 100 MG CAPSULE (FP) PO SCH (09:39)
[2020-04-21] MEDS: PANTOPRAZOLE 40 MG TABLET PO SCH (09:39)
[2020-04-21] MEDS: PRENATAL VITAMINS W/ FOLIC ACID TABLET (FP) PO SCH (09:40)
[2020-04-21] MEDS: NICOTINE 7 MG/24 HOURS TOPICAL PATCH TD SCH (09:40)
[2020-04-21] MEDS: LIDOCAINE 5% TOPICAL PATCH TP SCH (09:40)
[2020-04-21] MEDS ORDERED: amLODIPine BESYLATE 5 MG TABLET (FP) PO SCH (10:00)
[2020-04-21] MEDS: hydrOXYzine PAMOATE 25 MG CAPSULE (FP) PO PRN (21:16)
[2020-04-21] MEDS: ATORVASTATIN CA 40 MG TABLET (FP) PO SCH (21:16)
[2020-04-21] MEDS: THIAMINE HCL 100 MG TABLET (FP) PO SCH (21:16)
[2020-04-21] MEDS: traZODone HCL 50 MG TABLET (FP) PO SCH (21:16)
[2020-04-21] MEDS: MELATONIN 5 MG TABLETS PO SCH (21:16)
[2020-04-21] MEDS: LIDOCAINE PATCH REMOVAL MC SCH (21:17)
[2020-04-22] MEDS ORDERED: METHADONE HCL 40 MG DISPERSABLE TABLET ONE (03:38)
[2020-04-22] MEDS ORDERED: METHADONE HCL 10 MG TABLET ONE (03:38)
[2020-04-22] MEDS: cloNIDine HCL 0.1 MG TABLET PO SCH ×3 (07:04→21:36)
[2020-04-22] MEDS: METHADONE 80 MG, METHADONE 30 MG PO SCH (07:04)
[2020-04-22] MEDS: hydrALAZINE HCL 50 MG TABLET (FP) PO SCH ×3 (07:04→21:36)
[2020-04-22] MEDS: NIFEdipine E.R 60 MG TABLET PO SCH (07:04)
[2020-04-22] MEDS: metFORMIN HCL 500 MG TABLET (FP) PO SCH ×2 (07:05→17:02)
[2020-04-22] MEDS: HYDROCHLOROTHIAZIDE 25 MG TABLET (FP) PO SCH (07:05)
[2020-04-22] MEDS: LISINOPRIL 20 MG TABLET PO SCH (07:06)
[2020-04-22] MEDS: PRENATAL VITAMINS W/ FOLIC ACID TABLET (FP) PO SCH (09:30)
[2020-04-22] MEDS: PANTOPRAZOLE 40 MG TABLET PO SCH (09:31)
[2020-04-22] MEDS: LIDOCAINE 5% TOPICAL PATCH TP SCH (09:31)
[2020-04-22] MEDS: DOCUSATE SODIUM 100 MG CAPSULE (FP) PO SCH (09:31)
[2020-04-22] MEDS: NICOTINE 7 MG/24 HOURS TOPICAL PATCH TD SCH (09:32)
[2020-04-22] MEDS: ALBUTEROL SO4 HFA INHALER IH PRN (09:33)
[2020-04-22] MEDS: ATORVASTATIN CA 40 MG TABLET (FP) PO SCH (21:36)
[2020-04-22] MEDS: traZODone HCL 50 MG TABLET (FP) PO SCH (21:36)
[2020-04-22] MEDS: MELATONIN 5 MG TABLETS PO SCH (21:36)
[2020-04-22] MEDS: THIAMINE HCL 100 MG TABLET (FP) PO SCH (21:36)
[2020-04-22] MEDS: hydrOXYzine PAMOATE 25 MG CAPSULE (FP) PO PRN (21:36)
[2020-04-22] MEDS: LIDOCAINE PATCH REMOVAL MC SCH (21:37)
[2020-04-23] MEDS ORDERED: METHADONE HCL 40 MG DISPERSABLE TABLET ONE (03:19)
[2020-04-23] MEDS ORDERED: METHADONE HCL 10 MG TABLET ONE (03:19)
[2020-04-23] MEDS: HYDROCHLOROTHIAZIDE 25 MG TABLET (FP) PO SCH (07:11)
[2020-04-23] MEDS: hydrALAZINE HCL 50 MG TABLET (FP) PO SCH ×3 (07:11→21:01)
[2020-04-23] MEDS: NIFEdipine E.R 60 MG TABLET PO SCH (07:11)
[2020-04-23] MEDS: cloNIDine HCL 0.1 MG TABLET PO SCH ×3 (07:12→21:01)
[2020-04-23] MEDS: METHADONE 80 MG, METHADONE 30 MG PO SCH (07:12)
[2020-04-23] MEDS: metFORMIN HCL 500 MG TABLET (FP) PO SCH ×2 (07:12→16:38)
[2020-04-23] MEDS: LISINOPRIL 20 MG TABLET PO SCH (07:12)
[2020-04-23] MEDS: PRENATAL VITAMINS W/ FOLIC ACID TABLET (FP) PO SCH (09:45)
[2020-04-23] MEDS: LIDOCAINE 5% TOPICAL PATCH TP SCH (09:46)
[2020-04-23] MEDS: PANTOPRAZOLE 40 MG TABLET PO SCH (09:46)
[2020-04-23] MEDS: DOCUSATE SODIUM 100 MG CAPSULE (FP) PO SCH (09:46)
[2020-04-23] MEDS: NICOTINE 7 MG/24 HOURS TOPICAL PATCH TD SCH (09:47)
[2020-04-23] MEDS: ATORVASTATIN CA 40 MG TABLET (FP) PO SCH (21:01)
[2020-04-23] MEDS: THIAMINE HCL 100 MG TABLET (FP) PO SCH (21:01)
[2020-04-23] MEDS: traZODone HCL 50 MG TABLET (FP) PO SCH (21:02)
[2020-04-23] MEDS: MELATONIN 5 MG TABLETS PO SCH (21:04)
[2020-04-23] MEDS: LIDOCAINE PATCH REMOVAL MC SCH (21:04)
[2020-04-24] MEDS ORDERED: METHADONE HCL 40 MG DISPERSABLE TABLET ONE (03:25)
[2020-04-24] MEDS ORDERED: METHADONE HCL 10 MG TABLET ONE (03:25)
[2020-04-24] MEDS: METHADONE 80 MG, METHADONE 30 MG PO SCH (07:41)
[2020-04-24] MEDS: LISINOPRIL 20 MG TABLET PO SCH (07:42)
[2020-04-24] MEDS: HYDROCHLOROTHIAZIDE 25 MG TABLET (FP) PO SCH (07:42)
[2020-04-24] MEDS: metFORMIN HCL 500 MG TABLET (FP) PO SCH ×2 (07:42→16:51)
[2020-04-24] MEDS: hydrALAZINE HCL 50 MG TABLET (FP) PO SCH ×3 (07:43→21:46)
[2020-04-24] MEDS: NIFEdipine E.R 60 MG TABLET PO SCH (07:43)
[2020-04-24] MEDS: cloNIDine HCL 0.1 MG TABLET PO SCH ×3 (07:43→21:46)
[2020-04-24] MEDS ORDERED: MASKS NR ONE (08:28)
[2020-04-24] MEDS: PANTOPRAZOLE 40 MG TABLET PO SCH (09:20)
[2020-04-24] MEDS: PRENATAL VITAMINS W/ FOLIC ACID TABLET (FP) PO SCH (09:20)
[2020-04-24] MEDS: DOCUSATE SODIUM 100 MG CAPSULE (FP) PO SCH (09:20)
[2020-04-24] MEDS: LIDOCAINE 5% TOPICAL PATCH TP SCH (09:21)
[2020-04-24] MEDS: NICOTINE 7 MG/24 HOURS TOPICAL PATCH TD SCH (09:25)
[2020-04-24] MEDS: IBUPROFEN 400 MG TABLET (FP) PO PRN (16:51)
[2020-04-24] MEDS: THIAMINE HCL 100 MG TABLET (FP) PO SCH (21:46)
[2020-04-24] MEDS: ATORVASTATIN CA 40 MG TABLET (FP) PO SCH (21:46)
[2020-04-24] MEDS: hydrOXYzine PAMOATE 25 MG CAPSULE (FP) PO PRN (21:46)
[2020-04-24] MEDS: MELATONIN 5 MG TABLETS PO SCH (21:46)
[2020-04-24] MEDS: LIDOCAINE PATCH REMOVAL MC SCH (21:47)
[2020-04-24] MEDS: traZODone HCL 50 MG TABLET (FP) PO SCH (21:47)
[2020-04-25] MEDS ORDERED: METHADONE HCL 10 MG TABLET ONE (03:49)
[2020-04-25] MEDS ORDERED: METHADONE HCL 40 MG DISPERSABLE TABLET ONE (03:49)
[2020-04-25] MEDS ORDERED: PT OWN MED DRAWER 7, Y5N ONE (03:50)
[2020-04-25] MEDS: METHADONE 80 MG, METHADONE 30 MG PO SCH (06:30)
[2020-04-25] MEDS: metFORMIN HCL 500 MG TABLET (FP) PO SCH ×2 (06:31→17:14)
[2020-04-25] MEDS: LISINOPRIL 20 MG TABLET PO SCH (06:31)
[2020-04-25] MEDS: NIFEdipine E.R 60 MG TABLET PO SCH (06:31)
[2020-04-25] MEDS: cloNIDine HCL 0.1 MG TABLET PO SCH ×3 (06:31→21:52)
[2020-04-25] MEDS: hydrALAZINE HCL 50 MG TABLET (FP) PO SCH ×3 (06:32→21:52)
[2020-04-25] MEDS: HYDROCHLOROTHIAZIDE 25 MG TABLET (FP) PO SCH (06:32)
[2020-04-25] MEDS: PANTOPRAZOLE 40 MG TABLET PO SCH (09:53)
[2020-04-25] MEDS: PRENATAL VITAMINS W/ FOLIC ACID TABLET (FP) PO SCH (09:53)
[2020-04-25] MEDS: LIDOCAINE 5% TOPICAL PATCH TP SCH (09:53)
[2020-04-25] MEDS: NICOTINE 7 MG/24 HOURS TOPICAL PATCH TD SCH (09:53)
[2020-04-25] MEDS: DOCUSATE SODIUM 100 MG CAPSULE (FP) PO SCH (09:53)
[2020-04-25] MEDS: ACETAMINOPHEN 325 MG TABLET (FP) PO PRN (14:11)
[2020-04-25] MEDS: MELATONIN 5 MG TABLETS PO SCH (21:52)
[2020-04-25] MEDS: ATORVASTATIN CA 40 MG TABLET (FP) PO SCH (21:52)
[2020-04-25] MEDS: traZODone HCL 50 MG TABLET (FP) PO SCH (21:52)
[2020-04-25] MEDS: THIAMINE HCL 100 MG TABLET (FP) PO SCH (21:53)
[2020-04-25] MEDS: LIDOCAINE PATCH REMOVAL MC SCH (21:53)
[2020-04-26] MEDS ORDERED: METHADONE HCL 10 MG TABLET ONE (03:27)
[2020-04-26] MEDS ORDERED: METHADONE HCL 40 MG DISPERSABLE TABLET ONE (03:27)
[2020-04-26] MEDS ORDERED: MASKS NR ONE (06:39)
[2020-04-26] MEDS: METHADONE 80 MG, METHADONE 30 MG PO SCH (06:46)
[2020-04-26] MEDS: NIFEdipine E.R 60 MG TABLET PO SCH (06:46)
[2020-04-26] MEDS: cloNIDine HCL 0.1 MG TABLET PO SCH ×3 (06:46→21:43)
[2020-04-26] MEDS: metFORMIN HCL 500 MG TABLET (FP) PO SCH ×2 (06:46→16:51)
[2020-04-26] MEDS: HYDROCHLOROTHIAZIDE 25 MG TABLET (FP) PO SCH (06:46)
[2020-04-26] MEDS: LISINOPRIL 20 MG TABLET PO SCH (06:47)
[2020-04-26] MEDS: hydrOXYzine PAMOATE 25 MG CAPSULE (FP) PO PRN (06:47)
[2020-04-26] MEDS: hydrALAZINE HCL 50 MG TABLET (FP) PO SCH ×3 (07:33→21:43)
[2020-04-26] MEDS: PANTOPRAZOLE 40 MG TABLET PO SCH (09:32)
[2020-04-26] MEDS: DOCUSATE SODIUM 100 MG CAPSULE (FP) PO SCH (09:32)
[2020-04-26] MEDS: PRENATAL VITAMINS W/ FOLIC ACID TABLET (FP) PO SCH (09:32)
[2020-04-26] MEDS: NICOTINE 7 MG/24 HOURS TOPICAL PATCH TD SCH (09:33)
[2020-04-26] MEDS: LIDOCAINE 5% TOPICAL PATCH TP SCH (09:33)
[2020-04-26] MEDS: LIDOCAINE PATCH REMOVAL MC SCH (21:43)
[2020-04-26] MEDS: traZODone HCL 50 MG TABLET (FP) PO SCH (21:43)
[2020-04-26] MEDS: MELATONIN 5 MG TABLETS PO SCH (21:43)
[2020-04-26] MEDS: THIAMINE HCL 100 MG TABLET (FP) PO SCH (21:43)
[2020-04-26] MEDS: ATORVASTATIN CA 40 MG TABLET (FP) PO SCH (21:43)
[2020-04-27] MEDS ORDERED: METHADONE HCL 40 MG DISPERSABLE TABLET ONE (06:42)
[2020-04-27] MEDS ORDERED: METHADONE HCL 10 MG TABLET ONE (06:42)
[2020-04-27] MEDS: METHADONE 80 MG, METHADONE 30 MG PO SCH (06:45)
[2020-04-27] MEDS: hydrALAZINE HCL 50 MG TABLET (FP) PO SCH ×3 (06:46→21:41)
[2020-04-27] MEDS: cloNIDine HCL 0.1 MG TABLET PO SCH ×3 (06:48→21:41)
[2020-04-27] MEDS: metFORMIN HCL 500 MG TABLET (FP) PO SCH ×2 (06:49→16:40)
[2020-04-27] MEDS: LISINOPRIL 20 MG TABLET PO SCH (06:49)
[2020-04-27] MEDS: HYDROCHLOROTHIAZIDE 25 MG TABLET (FP) PO SCH (06:50)
[2020-04-27] MEDS: NIFEdipine E.R 60 MG TABLET PO SCH (06:50)
[2020-04-27] MEDS: PANTOPRAZOLE 40 MG TABLET PO SCH (09:41)
[2020-04-27] MEDS: ALBUTEROL SO4 HFA INHALER IH PRN (09:41)
[2020-04-27] MEDS: PRENATAL VITAMINS W/ FOLIC ACID TABLET (FP) PO SCH (09:41)
[2020-04-27] MEDS: DOCUSATE SODIUM 100 MG CAPSULE (FP) PO SCH (09:42)
[2020-04-27] MEDS: LIDOCAINE 5% TOPICAL PATCH TP SCH (09:42)
[2020-04-27] MEDS: NICOTINE 7 MG/24 HOURS TOPICAL PATCH TD SCH (09:43)
[2020-04-27] MEDS: THIAMINE HCL 100 MG TABLET (FP) PO SCH (21:41)
[2020-04-27] MEDS: traZODone HCL 50 MG TABLET (FP) PO SCH (21:41)
[2020-04-27] MEDS: MELATONIN 5 MG TABLETS PO SCH (21:41)
[2020-04-27] MEDS: ATORVASTATIN CA 40 MG TABLET (FP) PO SCH (21:41)
[2020-04-27] MEDS: LIDOCAINE PATCH REMOVAL MC SCH (21:41)
[2020-04-28] MEDS ORDERED: METHADONE HCL 10 MG TABLET ONE (06:17)
[2020-04-28] MEDS ORDERED: METHADONE HCL 40 MG DISPERSABLE TABLET ONE (06:17)
[2020-04-28] MEDS: METHADONE 80 MG, METHADONE 30 MG PO SCH (07:08)
[2020-04-28] MEDS: metFORMIN HCL 500 MG TABLET (FP) PO SCH ×2 (07:08→16:50)
[2020-04-28] MEDS: hydrALAZINE HCL 50 MG TABLET (FP) PO SCH ×3 (07:09→21:24)
[2020-04-28] MEDS: cloNIDine HCL 0.1 MG TABLET PO SCH ×3 (07:09→21:25)
[2020-04-28] MEDS: NIFEdipine E.R 60 MG TABLET PO SCH (07:09)
[2020-04-28] MEDS: LISINOPRIL 20 MG TABLET PO SCH (07:09)
[2020-04-28] MEDS: HYDROCHLOROTHIAZIDE 25 MG TABLET (FP) PO SCH (07:09)
[2020-04-28] MEDS: DOCUSATE SODIUM 100 MG CAPSULE (FP) PO SCH (09:43)
[2020-04-28] MEDS: PRENATAL VITAMINS W/ FOLIC ACID TABLET (FP) PO SCH (09:43)
[2020-04-28] MEDS: PANTOPRAZOLE 40 MG TABLET PO SCH (09:43)
[2020-04-28] MEDS: LIDOCAINE 5% TOPICAL PATCH TP SCH (09:44)
[2020-04-28] MEDS: NICOTINE 7 MG/24 HOURS TOPICAL PATCH TD SCH (09:44)
[2020-04-28] MEDS: ALBUTEROL SO4 HFA INHALER IH PRN (12:48)
[2020-04-28] MEDS ORDERED: MASKS NR ONE (16:51)
[2020-04-28] MEDS: hydrOXYzine PAMOATE 25 MG CAPSULE (FP) PO PRN (21:24)
[2020-04-28] MEDS: MELATONIN 5 MG TABLETS PO SCH (21:25)
[2020-04-28] MEDS: LIDOCAINE PATCH REMOVAL MC SCH (21:25)
[2020-04-28] MEDS: ATORVASTATIN CA 40 MG TABLET (FP) PO SCH (21:25)
[2020-04-28] MEDS: traZODone HCL 50 MG TABLET (FP) PO SCH (21:25)
[2020-04-28] MEDS: THIAMINE HCL 100 MG TABLET (FP) PO SCH (21:25)
[2020-04-29] MEDS ORDERED: METHADONE HCL 10 MG TABLET PO SCH (06:00)
[2020-04-29] MEDS: NIFEdipine E.R 60 MG TABLET PO SCH (06:48)
[2020-04-29] MEDS: metFORMIN HCL 500 MG TABLET (FP) PO SCH ×2 (06:48→16:40)
[2020-04-29] MEDS: HYDROCHLOROTHIAZIDE 25 MG TABLET (FP) PO SCH (06:48)
[2020-04-29] MEDS: hydrALAZINE HCL 50 MG TABLET (FP) PO SCH ×3 (06:48→21:40)
[2020-04-29] MEDS: cloNIDine HCL 0.1 MG TABLET PO SCH ×3 (06:48→21:40)
[2020-04-29] MEDS: LISINOPRIL 20 MG TABLET PO SCH (06:48)
[2020-04-29] MEDS ORDERED: METHADONE 80 MG, METHADONE 30 MG PO SCH ×2 (07:00→07:37)
[2020-04-29] MEDS ORDERED: METHADONE HCL 10 MG TABLET ONE (07:49)
[2020-04-29] MEDS ORDERED: METHADONE HCL 40 MG DISPERSABLE TABLET ONE (07:50)
[2020-04-29] MEDS: METHADONE 80 MG, METHADONE 30 MG PO SCH (07:51)
[2020-04-29] MEDS: PRENATAL VITAMINS W/ FOLIC ACID TABLET (FP) PO SCH (09:29)
[2020-04-29] MEDS: LIDOCAINE 5% TOPICAL PATCH TP SCH (09:29)
[2020-04-29] MEDS: DOCUSATE SODIUM 100 MG CAPSULE (FP) PO SCH (09:29)
[2020-04-29] MEDS: PANTOPRAZOLE 40 MG TABLET PO SCH (09:29)
[2020-04-29] MEDS: NICOTINE 7 MG/24 HOURS TOPICAL PATCH TD SCH (09:31)
[2020-04-29] MEDS: MELATONIN 5 MG TABLETS PO SCH (21:39)
[2020-04-29] MEDS: THIAMINE HCL 100 MG TABLET (FP) PO SCH (21:39)
[2020-04-29] MEDS: traZODone HCL 50 MG TABLET (FP) PO SCH (21:40)
[2020-04-29] MEDS: ATORVASTATIN CA 40 MG TABLET (FP) PO SCH (21:40)
[2020-04-29] MEDS: LIDOCAINE PATCH REMOVAL MC SCH (21:40)
[2020-04-30] MEDS ORDERED: METHADONE HCL 40 MG DISPERSABLE TABLET ONE (03:49)
[2020-04-30] MEDS ORDERED: METHADONE HCL 10 MG TABLET ONE (03:49)
[2020-04-30] MEDS ORDERED: PT OWN MED DRAWER 7, Y5N ONE (03:50)
[2020-04-30] MEDS: ALBUTEROL SO4 HFA INHALER IH PRN (07:00)
[2020-04-30] MEDS: METHADONE 80 MG, METHADONE 30 MG PO SCH (07:01)
[2020-04-30] MEDS: metFORMIN HCL 500 MG TABLET (FP) PO SCH ×2 (07:02→16:45)
[2020-04-30] MEDS: HYDROCHLOROTHIAZIDE 25 MG TABLET (FP) PO SCH (07:03)
[2020-04-30] MEDS: NIFEdipine E.R 60 MG TABLET PO SCH (07:03)
[2020-04-30] MEDS: hydrALAZINE HCL 50 MG TABLET (FP) PO SCH ×3 (07:03→21:17)
[2020-04-30] MEDS: LISINOPRIL 20 MG TABLET PO SCH (07:03)
[2020-04-30] MEDS: cloNIDine HCL 0.1 MG TABLET PO SCH ×3 (07:03→21:17)
[2020-04-30] MEDS: PANTOPRAZOLE 40 MG TABLET PO SCH (09:43)
[2020-04-30] MEDS: PRENATAL VITAMINS W/ FOLIC ACID TABLET (FP) PO SCH (09:43)
[2020-04-30] MEDS: DOCUSATE SODIUM 100 MG CAPSULE (FP) PO SCH (09:43)
[2020-04-30] MEDS: LIDOCAINE 5% TOPICAL PATCH TP SCH (09:44)
[2020-04-30] MEDS: NICOTINE 7 MG/24 HOURS TOPICAL PATCH TD SCH (09:44)
[2020-04-30] MEDS: LIDOCAINE PATCH REMOVAL MC SCH (21:17)
[2020-04-30] MEDS: ATORVASTATIN CA 40 MG TABLET (FP) PO SCH (21:17)
[2020-04-30] MEDS: traZODone HCL 50 MG TABLET (FP) PO SCH (21:17)
[2020-04-30] MEDS: THIAMINE HCL 100 MG TABLET (FP) PO SCH (21:17)
[2020-04-30] MEDS: MELATONIN 5 MG TABLETS PO SCH (21:17)
[2020-05-01] MEDS ORDERED: METHADONE HCL 40 MG DISPERSABLE TABLET ONE (06:25)
[2020-05-01] MEDS ORDERED: METHADONE HCL 10 MG TABLET ONE (06:25)
[2020-05-01] MEDS: cloNIDine HCL 0.1 MG TABLET PO SCH ×3 (06:26→21:20)
[2020-05-01] MEDS: METHADONE 80 MG, METHADONE 30 MG PO SCH (06:26)
[2020-05-01] MEDS: HYDROCHLOROTHIAZIDE 25 MG TABLET (FP) PO SCH (06:27)
[2020-05-01] MEDS: LISINOPRIL 20 MG TABLET PO SCH (06:27)
[2020-05-01] MEDS: NIFEdipine E.R 60 MG TABLET PO SCH (06:27)
[2020-05-01] MEDS: hydrALAZINE HCL 50 MG TABLET (FP) PO SCH ×3 (06:27→21:20)
[2020-05-01] MEDS: metFORMIN HCL 500 MG TABLET (FP) PO SCH ×2 (06:27→16:20)
[2020-05-01] MEDS: DOCUSATE SODIUM 100 MG CAPSULE (FP) PO SCH (09:33)
[2020-05-01] MEDS: PRENATAL VITAMINS W/ FOLIC ACID TABLET (FP) PO SCH (09:33)
[2020-05-01] MEDS: NICOTINE 7 MG/24 HOURS TOPICAL PATCH TD SCH (09:34)
[2020-05-01] MEDS: LIDOCAINE 5% TOPICAL PATCH TP SCH (09:34)
[2020-05-01] MEDS: PANTOPRAZOLE 40 MG TABLET PO SCH (09:35)
[2020-05-01] MEDS: THIAMINE HCL 100 MG TABLET (FP) PO SCH (21:21)
[2020-05-01] MEDS: MELATONIN 5 MG TABLETS PO SCH (21:21)
[2020-05-01] MEDS: ATORVASTATIN CA 40 MG TABLET (FP) PO SCH (21:21)
[2020-05-01] MEDS: LIDOCAINE PATCH REMOVAL MC SCH (21:21)
[2020-05-01] MEDS: traZODone HCL 50 MG TABLET (FP) PO SCH (21:22)
[2020-05-02] MEDS ORDERED: METHADONE HCL 40 MG DISPERSABLE TABLET ONE (03:41)
[2020-05-02] MEDS ORDERED: METHADONE HCL 10 MG TABLET ONE (03:41)
[2020-05-02] MEDS: NIFEdipine E.R 60 MG TABLET PO SCH (06:57)
[2020-05-02] MEDS: LISINOPRIL 20 MG TABLET PO SCH (06:57)
[2020-05-02] MEDS: METHADONE 80 MG, METHADONE 30 MG PO SCH (06:57)
[2020-05-02] MEDS: hydrALAZINE HCL 50 MG TABLET (FP) PO SCH ×3 (06:58→21:17)
[2020-05-02] MEDS: HYDROCHLOROTHIAZIDE 25 MG TABLET (FP) PO SCH (06:58)
[2020-05-02] MEDS: metFORMIN HCL 500 MG TABLET (FP) PO SCH ×2 (06:58→16:13)
[2020-05-02] MEDS: cloNIDine HCL 0.1 MG TABLET PO SCH ×3 (06:58→21:16)
[2020-05-02] MEDS: DOCUSATE SODIUM 100 MG CAPSULE (FP) PO SCH (09:25)
[2020-05-02] MEDS: PANTOPRAZOLE 40 MG TABLET PO SCH (09:25)
[2020-05-02] MEDS: NICOTINE 7 MG/24 HOURS TOPICAL PATCH TD SCH (09:25)
[2020-05-02] MEDS: PRENATAL VITAMINS W/ FOLIC ACID TABLET (FP) PO SCH (09:25)
[2020-05-02] MEDS: LIDOCAINE 5% TOPICAL PATCH TP SCH (09:26)
[2020-05-02] MEDS ORDERED: PT OWN MED DRAWER 7, Y5N ONE (19:41)
[2020-05-02] MEDS: ATORVASTATIN CA 40 MG TABLET (FP) PO SCH (21:16)
[2020-05-02] MEDS: THIAMINE HCL 100 MG TABLET (FP) PO SCH (21:16)
[2020-05-02] MEDS: traZODone HCL 50 MG TABLET (FP) PO SCH (21:17)
[2020-05-02] MEDS: LIDOCAINE PATCH REMOVAL MC SCH (21:17)
[2020-05-02] MEDS: MELATONIN 5 MG TABLETS PO SCH (21:17)
[2020-05-03] MEDS ORDERED: METHADONE HCL 10 MG TABLET ONE (03:55)
[2020-05-03] MEDS ORDERED: METHADONE HCL 40 MG DISPERSABLE TABLET ONE (03:56)
[2020-05-03] MEDS ORDERED: PT OWN MED DRAWER 7, Y5N ONE (03:57)
[2020-05-03] MEDS: METHADONE 80 MG, METHADONE 30 MG PO SCH (06:42)
[2020-05-03] MEDS: HYDROCHLOROTHIAZIDE 25 MG TABLET (FP) PO SCH (06:42)
[2020-05-03] MEDS: metFORMIN HCL 500 MG TABLET (FP) PO SCH ×2 (06:42→17:12)
[2020-05-03] MEDS: hydrALAZINE HCL 50 MG TABLET (FP) PO SCH ×3 (06:42→21:48)
[2020-05-03] MEDS: LISINOPRIL 20 MG TABLET PO SCH (06:42)
[2020-05-03] MEDS: NIFEdipine E.R 60 MG TABLET PO SCH (06:42)
[2020-05-03] MEDS: cloNIDine HCL 0.1 MG TABLET PO SCH ×3 (06:43→21:48)
[2020-05-03] MEDS: LIDOCAINE 5% TOPICAL PATCH TP SCH (09:44)
[2020-05-03] MEDS: DOCUSATE SODIUM 100 MG CAPSULE (FP) PO SCH (09:44)
[2020-05-03] MEDS: PRENATAL VITAMINS W/ FOLIC ACID TABLET (FP) PO SCH (09:44)
[2020-05-03] MEDS: PANTOPRAZOLE 40 MG TABLET PO SCH (09:44)
[2020-05-03] MEDS: NICOTINE 7 MG/24 HOURS TOPICAL PATCH TD SCH (09:45)
[2020-05-03] MEDS: ALBUTEROL SO4 HFA INHALER IH PRN (13:23)
[2020-05-03] MEDS: traZODone HCL 50 MG TABLET (FP) PO SCH (21:48)
[2020-05-03] MEDS: THIAMINE HCL 100 MG TABLET (FP) PO SCH (21:48)
[2020-05-03] MEDS: MELATONIN 5 MG TABLETS PO SCH (21:48)
[2020-05-03] MEDS: ATORVASTATIN CA 40 MG TABLET (FP) PO SCH (21:48)
[2020-05-03] MEDS: hydrOXYzine PAMOATE 25 MG CAPSULE (FP) PO PRN (21:48)
[2020-05-03] MEDS: LIDOCAINE PATCH REMOVAL MC SCH (21:49)
[2020-05-04] MEDS ORDERED: METHADONE HCL 10 MG TABLET ONE (07:07)
[2020-05-04] MEDS ORDERED: METHADONE HCL 40 MG DISPERSABLE TABLET ONE (07:08)
[2020-05-04] MEDS: METHADONE 80 MG, METHADONE 30 MG PO SCH (07:09)
[2020-05-04] MEDS: NIFEdipine E.R 60 MG TABLET PO SCH (07:09)
[2020-05-04] MEDS: LISINOPRIL 20 MG TABLET PO SCH (07:10)
[2020-05-04] MEDS: metFORMIN HCL 500 MG TABLET (FP) PO SCH ×2 (07:10→17:19)
[2020-05-04] MEDS: hydrALAZINE HCL 50 MG TABLET (FP) PO SCH ×3 (07:10→21:16)
[2020-05-04] MEDS: cloNIDine HCL 0.1 MG TABLET PO SCH ×3 (07:10→21:16)
[2020-05-04] MEDS: HYDROCHLOROTHIAZIDE 25 MG TABLET (FP) PO SCH (07:11)
[2020-05-04] MEDS: DOCUSATE SODIUM 100 MG CAPSULE (FP) PO SCH (09:36)
[2020-05-04] MEDS: PRENATAL VITAMINS W/ FOLIC ACID TABLET (FP) PO SCH (09:36)
[2020-05-04] MEDS: LIDOCAINE 5% TOPICAL PATCH TP SCH (09:36)
[2020-05-04] MEDS: PANTOPRAZOLE 40 MG TABLET PO SCH (09:37)
[2020-05-04] MEDS: NICOTINE 7 MG/24 HOURS TOPICAL PATCH TD SCH (11:09)
[2020-05-04] MEDS: traZODone HCL 50 MG TABLET (FP) PO SCH (21:16)
[2020-05-04] MEDS: THIAMINE HCL 100 MG TABLET (FP) PO SCH (21:16)
[2020-05-04] MEDS: ATORVASTATIN CA 40 MG TABLET (FP) PO SCH (21:16)
[2020-05-04] MEDS: MELATONIN 5 MG TABLETS PO SCH (21:17)
[2020-05-04] MEDS: LIDOCAINE PATCH REMOVAL MC SCH (22:01)
[2020-05-05] MEDS ORDERED: METHADONE HCL 40 MG DISPERSABLE TABLET ONE (03:28)
[2020-05-05] MEDS ORDERED: METHADONE HCL 10 MG TABLET ONE (03:28)
[2020-05-05] MEDS: METHADONE 80 MG, METHADONE 30 MG PO SCH (06:30)
[2020-05-05] MEDS: hydrALAZINE HCL 50 MG TABLET (FP) PO SCH ×3 (06:33→21:13)
[2020-05-05] MEDS: cloNIDine HCL 0.1 MG TABLET PO SCH ×3 (06:33→21:14)
[2020-05-05] MEDS: LISINOPRIL 20 MG TABLET PO SCH (06:33)
[2020-05-05] MEDS: metFORMIN HCL 500 MG TABLET (FP) PO SCH ×2 (06:33→16:43)
[2020-05-05] MEDS: NIFEdipine E.R 60 MG TABLET PO SCH (06:33)
[2020-05-05] MEDS: HYDROCHLOROTHIAZIDE 25 MG TABLET (FP) PO SCH (06:33)
[2020-05-05] MEDS: DOCUSATE SODIUM 100 MG CAPSULE (FP) PO SCH (09:39)
[2020-05-05] MEDS: PANTOPRAZOLE 40 MG TABLET PO SCH (09:39)
[2020-05-05] MEDS: PRENATAL VITAMINS W/ FOLIC ACID TABLET (FP) PO SCH (09:39)
[2020-05-05] MEDS: NICOTINE 7 MG/24 HOURS TOPICAL PATCH TD SCH (09:40)
[2020-05-05] MEDS: LIDOCAINE 5% TOPICAL PATCH TP SCH (09:40)
[2020-05-05] MEDS: ATORVASTATIN CA 40 MG TABLET (FP) PO SCH (21:13)
[2020-05-05] MEDS: THIAMINE HCL 100 MG TABLET (FP) PO SCH (21:13)
[2020-05-05] MEDS: MELATONIN 5 MG TABLETS PO SCH (21:14)
[2020-05-05] MEDS: traZODone HCL 50 MG TABLET (FP) PO SCH (21:14)
[2020-05-05] MEDS: LIDOCAINE PATCH REMOVAL MC SCH (21:14)
[2020-05-06] MEDS ORDERED: METHADONE HCL 40 MG DISPERSABLE TABLET ONE (05:51)
[2020-05-06] MEDS ORDERED: METHADONE HCL 10 MG TABLET ONE (05:51)
[2020-05-06] MEDS: METHADONE 80 MG, METHADONE 30 MG PO SCH (06:54)
[2020-05-06] MEDS: metFORMIN HCL 500 MG TABLET (FP) PO SCH ×2 (06:55→16:44)
[2020-05-06] MEDS: HYDROCHLOROTHIAZIDE 25 MG TABLET (FP) PO SCH (06:56)
[2020-05-06] MEDS: LISINOPRIL 20 MG TABLET PO SCH (06:56)
[2020-05-06] MEDS: cloNIDine HCL 0.1 MG TABLET PO SCH ×3 (06:56→21:13)
[2020-05-06] MEDS: NIFEdipine E.R 60 MG TABLET PO SCH (06:56)
[2020-05-06] MEDS: hydrALAZINE HCL 50 MG TABLET (FP) PO SCH ×3 (06:56→21:13)
[2020-05-06] MEDS: PRENATAL VITAMINS W/ FOLIC ACID TABLET (FP) PO SCH (09:34)
[2020-05-06] MEDS: DOCUSATE SODIUM 100 MG CAPSULE (FP) PO SCH (09:34)
[2020-05-06] MEDS: PANTOPRAZOLE 40 MG TABLET PO SCH (09:34)
[2020-05-06] MEDS: NICOTINE 7 MG/24 HOURS TOPICAL PATCH TD SCH (09:35)
[2020-05-06] MEDS: LIDOCAINE 5% TOPICAL PATCH TP SCH (09:35)
[2020-05-06] MEDS: traZODone HCL 50 MG TABLET (FP) PO SCH (21:13)
[2020-05-06] MEDS: MELATONIN 5 MG TABLETS PO SCH (21:13)
[2020-05-06] MEDS: hydrOXYzine PAMOATE 25 MG CAPSULE (FP) PO PRN (21:13)
[2020-05-06] MEDS: THIAMINE HCL 100 MG TABLET (FP) PO SCH (21:13)
[2020-05-06] MEDS: ATORVASTATIN CA 40 MG TABLET (FP) PO SCH (21:13)
[2020-05-06] MEDS: LIDOCAINE PATCH REMOVAL MC SCH (21:22)
[2020-05-07] MEDS ORDERED: METHADONE HCL 40 MG DISPERSABLE TABLET ONE (03:42)
[2020-05-07] MEDS ORDERED: METHADONE HCL 10 MG TABLET ONE (03:42)
[2020-05-07] MEDS: METHADONE 80 MG, METHADONE 30 MG PO SCH (06:26)
[2020-05-07] MEDS: LISINOPRIL 20 MG TABLET PO SCH (06:26)
[2020-05-07] MEDS: cloNIDine HCL 0.1 MG TABLET PO SCH ×3 (06:27→21:44)
[2020-05-07] MEDS: hydrALAZINE HCL 50 MG TABLET (FP) PO SCH ×3 (06:27→21:44)
[2020-05-07] MEDS: HYDROCHLOROTHIAZIDE 25 MG TABLET (FP) PO SCH (06:27)
[2020-05-07] MEDS: NIFEdipine E.R 60 MG TABLET PO SCH (06:48)
[2020-05-07] MEDS: metFORMIN HCL 500 MG TABLET (FP) PO SCH ×2 (07:59→16:41)
[2020-05-07] MEDS ORDERED: PT OWN MED DRAWER 7, Y5N ONE (09:02)
[2020-05-07] MEDS: PANTOPRAZOLE 40 MG TABLET PO SCH (09:26)
[2020-05-07] MEDS: DOCUSATE SODIUM 100 MG CAPSULE (FP) PO SCH (09:26)
[2020-05-07] MEDS: PRENATAL VITAMINS W/ FOLIC ACID TABLET (FP) PO SCH (09:26)
[2020-05-07] MEDS: LIDOCAINE 5% TOPICAL PATCH TP SCH (09:27)
[2020-05-07] MEDS: NICOTINE 7 MG/24 HOURS TOPICAL PATCH TD SCH (09:28)
[2020-05-07] MEDS: ALBUTEROL SO4 HFA INHALER IH PRN (16:42)
[2020-05-07] MEDS: THIAMINE HCL 100 MG TABLET (FP) PO SCH (21:44)
[2020-05-07] MEDS: ATORVASTATIN CA 40 MG TABLET (FP) PO SCH (21:44)
[2020-05-07] MEDS: traZODone HCL 50 MG TABLET (FP) PO SCH (21:44)
[2020-05-07] MEDS: MELATONIN 5 MG TABLETS PO SCH (21:45)
[2020-05-07] MEDS: LIDOCAINE PATCH REMOVAL MC SCH (21:49)
[2020-05-08] MEDS ORDERED: METHADONE HCL 40 MG DISPERSABLE TABLET ONE (04:05)
[2020-05-08] MEDS ORDERED: METHADONE HCL 10 MG TABLET ONE (04:05)
[2020-05-08] MEDS: LISINOPRIL 20 MG TABLET PO SCH (07:08)
[2020-05-08] MEDS: hydrALAZINE HCL 50 MG TABLET (FP) PO SCH ×3 (07:08→21:38)
[2020-05-08] MEDS: cloNIDine HCL 0.1 MG TABLET PO SCH ×3 (07:09→21:38)
[2020-05-08] MEDS: HYDROCHLOROTHIAZIDE 25 MG TABLET (FP) PO SCH (07:09)
[2020-05-08] MEDS: metFORMIN HCL 500 MG TABLET (FP) PO SCH ×2 (07:09→17:16)
[2020-05-08] MEDS: METHADONE 80 MG, METHADONE 30 MG PO SCH (07:10)
[2020-05-08] MEDS: NIFEdipine E.R 60 MG TABLET PO SCH (07:26)
[2020-05-08] MEDS: DOCUSATE SODIUM 100 MG CAPSULE (FP) PO SCH (09:30)
[2020-05-08] MEDS: PRENATAL VITAMINS W/ FOLIC ACID TABLET (FP) PO SCH (09:30)
[2020-05-08] MEDS: PANTOPRAZOLE 40 MG TABLET PO SCH (09:31)
[2020-05-08] MEDS: LIDOCAINE 5% TOPICAL PATCH TP SCH (09:31)
[2020-05-08] MEDS: NICOTINE 7 MG/24 HOURS TOPICAL PATCH TD SCH (09:31)
[2020-05-08] MEDS: ACETAMINOPHEN 325 MG TABLET (FP) PO PRN (17:17)
[2020-05-08] MEDS: ALBUTEROL SO4 HFA INHALER IH PRN (21:37)
[2020-05-08] MEDS: traZODone HCL 50 MG TABLET (FP) PO SCH (21:38)
[2020-05-08] MEDS: MELATONIN 5 MG TABLETS PO SCH (21:38)
[2020-05-08] MEDS: THIAMINE HCL 100 MG TABLET (FP) PO SCH (21:38)
[2020-05-08] MEDS: hydrOXYzine PAMOATE 25 MG CAPSULE (FP) PO PRN (21:38)
[2020-05-08] MEDS: ATORVASTATIN CA 40 MG TABLET (FP) PO SCH (21:38)
[2020-05-08] MEDS: LIDOCAINE PATCH REMOVAL MC SCH (21:39)
[2020-05-09] MEDS ORDERED: METHADONE HCL 40 MG DISPERSABLE TABLET ONE (03:50)
[2020-05-09] MEDS ORDERED: METHADONE HCL 10 MG TABLET ONE (03:50)
[2020-05-09] MEDS: METHADONE 80 MG, METHADONE 30 MG PO SCH (06:51)
[2020-05-09] MEDS: hydrALAZINE HCL 50 MG TABLET (FP) PO SCH ×3 (06:52→21:28)
[2020-05-09] MEDS: LISINOPRIL 20 MG TABLET PO SCH (06:52)
[2020-05-09] MEDS: HYDROCHLOROTHIAZIDE 25 MG TABLET (FP) PO SCH (06:52)
[2020-05-09] MEDS: metFORMIN HCL 500 MG TABLET (FP) PO SCH ×2 (06:52→16:50)
[2020-05-09] MEDS: cloNIDine HCL 0.1 MG TABLET PO SCH ×3 (06:52→21:28)
[2020-05-09] MEDS: NIFEdipine E.R 60 MG TABLET PO SCH (07:25)
[2020-05-09] MEDS: PRENATAL VITAMINS W/ FOLIC ACID TABLET (FP) PO SCH (09:17)
[2020-05-09] MEDS: PANTOPRAZOLE 40 MG TABLET PO SCH (09:17)
[2020-05-09] MEDS: DOCUSATE SODIUM 100 MG CAPSULE (FP) PO SCH (09:17)
[2020-05-09] MEDS: LIDOCAINE 5% TOPICAL PATCH TP SCH (09:18)
[2020-05-09] MEDS: NICOTINE 7 MG/24 HOURS TOPICAL PATCH TD SCH (09:31)
[2020-05-09] MEDS: IBUPROFEN 400 MG TABLET (FP) PO PRN (09:57)
[2020-05-09] MEDS: hydrOXYzine PAMOATE 25 MG CAPSULE (FP) PO PRN (21:28)
[2020-05-09] MEDS: MELATONIN 5 MG TABLETS PO SCH (21:28)
[2020-05-09] MEDS: ATORVASTATIN CA 40 MG TABLET (FP) PO SCH (21:28)
[2020-05-09] MEDS: ALBUTEROL SO4 HFA INHALER IH PRN (21:28)
[2020-05-09] MEDS: THIAMINE HCL 100 MG TABLET (FP) PO SCH (21:28)
[2020-05-09] MEDS: LIDOCAINE PATCH REMOVAL MC SCH (21:29)
[2020-05-09] MEDS: traZODone HCL 50 MG TABLET (FP) PO SCH (21:29)
[2020-05-10] MEDS ORDERED: METHADONE HCL 10 MG TABLET ONE (06:32)
[2020-05-10] MEDS ORDERED: METHADONE HCL 40 MG DISPERSABLE TABLET ONE (06:32)
[2020-05-10] MEDS: NIFEdipine E.R 60 MG TABLET PO SCH (06:35)
[2020-05-10] MEDS: metFORMIN HCL 500 MG TABLET (FP) PO SCH ×2 (06:35→16:44)
[2020-05-10] MEDS ORDERED: PT OWN MED DRAWER 7, Y5N ONE ×3 (06:35→13:27)
[2020-05-10] MEDS: METHADONE 80 MG, METHADONE 30 MG PO SCH (06:35)
[2020-05-10] MEDS: hydrALAZINE HCL 50 MG TABLET (FP) PO SCH ×3 (06:36→21:41)
[2020-05-10] MEDS: LISINOPRIL 20 MG TABLET PO SCH (06:36)
[2020-05-10] MEDS: HYDROCHLOROTHIAZIDE 25 MG TABLET (FP) PO SCH (06:36)
[2020-05-10] MEDS: cloNIDine HCL 0.1 MG TABLET PO SCH ×3 (06:36→21:41)
[2020-05-10] MEDS: LIDOCAINE 5% TOPICAL PATCH TP SCH (09:46)
[2020-05-10] MEDS: NICOTINE 7 MG/24 HOURS TOPICAL PATCH TD SCH (09:46)
[2020-05-10] MEDS: PRENATAL VITAMINS W/ FOLIC ACID TABLET (FP) PO SCH (09:46)
[2020-05-10] MEDS: DOCUSATE SODIUM 100 MG CAPSULE (FP) PO SCH (09:46)
[2020-05-10] MEDS: PANTOPRAZOLE 40 MG TABLET PO SCH (09:46)
[2020-05-10] MEDS: ACETAMINOPHEN 325 MG TABLET (FP) PO PRN (18:20)
[2020-05-10] MEDS: traZODone HCL 50 MG TABLET (FP) PO SCH (21:41)
[2020-05-10] MEDS: ALBUTEROL SO4 HFA INHALER IH PRN (21:41)
[2020-05-10] MEDS: hydrOXYzine PAMOATE 25 MG CAPSULE (FP) PO PRN (21:41)
[2020-05-10] MEDS: ATORVASTATIN CA 40 MG TABLET (FP) PO SCH (21:41)
[2020-05-10] MEDS: MELATONIN 5 MG TABLETS PO SCH (21:42)
[2020-05-10] MEDS: LIDOCAINE PATCH REMOVAL MC SCH (21:42)
[2020-05-10] MEDS: THIAMINE HCL 100 MG TABLET (FP) PO SCH (21:51)
[2020-05-11] MEDS ORDERED: METHADONE HCL 10 MG TABLET ONE (03:19)
[2020-05-11] MEDS ORDERED: METHADONE HCL 40 MG DISPERSABLE TABLET ONE (03:19)
[2020-05-11] MEDS: METHADONE 80 MG, METHADONE 30 MG PO SCH (06:09)
[2020-05-11] MEDS: metFORMIN HCL 500 MG TABLET (FP) PO SCH (06:10)
[2020-05-11] MEDS: LISINOPRIL 20 MG TABLET PO SCH (06:10)
[2020-05-11] MEDS: hydrALAZINE HCL 50 MG TABLET (FP) PO SCH (06:10)
[2020-05-11] MEDS: cloNIDine HCL 0.1 MG TABLET PO SCH (06:10)
[2020-05-11] MEDS: HYDROCHLOROTHIAZIDE 25 MG TABLET (FP) PO SCH (06:11)
[2020-05-11] MEDS: NIFEdipine E.R 60 MG TABLET PO SCH (06:14)
[2020-05-11 06:34] VITALS: BP 158/90; PULSE 57; TEMP 97.8
[2020-05-11] MEDS ORDERED: PT OWN MED DRAWER 7, Y5N ONE (09:16)
[2020-05-11] MEDS: LIDOCAINE 5% TOPICAL PATCH TP SCH (09:37)
[2020-05-11] MEDS: DOCUSATE SODIUM 100 MG CAPSULE (FP) PO SCH (09:37)
[2020-05-11] MEDS: NICOTINE 7 MG/24 HOURS TOPICAL PATCH TD SCH (09:37)
[2020-05-11] MEDS: PRENATAL VITAMINS W/ FOLIC ACID TABLET (FP) PO SCH (09:37)
[2020-05-11] MEDS: PANTOPRAZOLE 40 MG TABLET PO SCH (09:37)
== END 2020-05-11 09:55 | disposition home or self-care (01) | DRG 772 ==
LOC: YASAS 14:12 → Y5N 14:14
PROVIDERS: ADMIT Allergy & Immunology; ATTEND Allergy & Immunology
PROC: HZ42ZZZ Group Counseling for Substance Abuse Treatment, Cognitive-Behavioral (ICD-10-PCS; principal; 2020-04-13)
DX: F10.20 Alcohol dependence, uncomplicated (principal); F11.20 Opioid dependence, uncomplicated; F13.20 Sedative, hypnotic or anxiolytic dependence, uncomplicated; F14.20 Cocaine dependence, uncomplicated; F17.210 Nicotine dependence, cigarettes, uncomplicated; F19.282 Other psychoactive substance dependence with psychoactive substance-induced sleep disorder; F19.24 Other psychoactive substance dependence with psychoactive substance-induced mood disorder; G47.00 Insomnia, unspecified; E78.5 Hyperlipidemia, unspecified; E11.9 Type 2 diabetes mellitus without complications; Z79.84 Long term (current) use of oral hypoglycemic drugs; I10 Essential (primary) hypertension; J44.9 Chronic obstructive pulmonary disease, unspecified; J45.20 Mild intermittent asthma, uncomplicated; K21.9 Gastro-esophageal reflux disease without esophagitis; B18.2 Chronic viral hepatitis C; E66.01 Morbid (severe) obesity due to excess calories; Z68.43 Body mass index [BMI] 50.0-59.9, adult; R60.0 Localized edema; R26.89 Other abnormalities of gait and mobility; M25.561 Pain in right knee; M25.562 Pain in left knee; Z63.4 Disappearance and death of family member; W19.XXXA Unspecified fall, initial encounter; Z99.89 Dependence on other enabling machines and devices; Y93.9 Activity, unspecified; Y92.9 Unspecified place or not applicable; Y99.9 Unspecified external cause status; Z91.013 Allergy to seafood; Z59.0 Homelessness
CPT/HCPCS: 82962; C9803; J0735; U0003

== ENCOUNTER 2020-11-25 18:29 | Inpatient (IN) | payer OTHER ==
[2020-11-25 19:44] VITALS: BMI 45.8
[2020-11-25] MEDS ORDERED: METHOCARBAMOL 500 MG TABLET PO PRN (20:24)
[2020-11-25] MEDS ORDERED: NICOTINE 10 MG CARTRIDGE (INHALER) IH PRN (20:24)
[2020-11-25] MEDS ORDERED: ONDANSETRON *ODT* 4 MG TABLET SL PRN (20:24)
[2020-11-25] MEDS ORDERED: MAG HYDROX/AL HYDROX/SIMETH 30 ML UNIT-DOSE CUP PO PRN (20:24)
[2020-11-25] MEDS ORDERED: MAGNESIUM CITRATE 300 ML BOTTLE PO PRN (20:24)
[2020-11-25] MEDS ORDERED: ACETAMINOPHEN 325 MG TABLET (FP) PO PRN ×2 (20:24)
[2020-11-25] MEDS ORDERED: IBUPROFEN 400 MG TABLET (FP) PO PRN (20:24)
[2020-11-25] MEDS ORDERED: BISMUTH SUBSALICYLATE 524 MG/30 ML PO PRN (20:24)
[2020-11-25] MEDS ORDERED: MENTHOL/PHENOL 1 EACH UD MM PRN (20:24)
[2020-11-25] MEDS ORDERED: MAGNESIUM HYDROX 2400MG/30ML ORAL SUSPENSION 30 ML CUP PO PRN (20:24)
[2020-11-25] MEDS ORDERED: cloNIDine HCL 0.1 MG TABLET PO ONE (21:51)
[2020-11-26] MEDS: MELATONIN 5 MG TABLETS PO SCH ×2 (02:55→21:40)
[2020-11-26] MEDS: diazePAM 5 MG TABLET PO SCH ×5 (02:56→22:00)
[2020-11-26] MEDS: THIAMINE HCL 100 MG TABLET (FP) PO SCH ×2 (02:56→21:40)
[2020-11-26] MEDS ORDERED: cloNIDine HCL 0.1 MG TABLET PO ONE (03:00)
[2020-11-26] MEDS ORDERED: diazePAM 5 MG TABLET ONE (05:20)
[2020-11-26] MEDS ORDERED: ALBUTEROL SO4 HFA INHALER IH PRN (09:43)
[2020-11-26] MEDS ORDERED: methaDONE HCL 10 MG TABLET PO SCH (09:45)
[2020-11-26] MEDS ORDERED: PATIENT'S OWN MEDICATION (NON-FORMULARY) (Lisinopril/Hydrochlorothiazide [Lisinopril-Hctz PO SCH (10:00)
[2020-11-26] MEDS ORDERED: methaDONE HCL 10 MG TABLET ONE (10:58)
[2020-11-26] MEDS ORDERED: methaDONE HCL 40 MG DISPERSABLE TABLET ONE (10:59)
[2020-11-26] MEDS: HYDROCHLOROTHIAZIDE 25 MG TABLET (FP) PO SCH (11:03)
[2020-11-26] MEDS: amLODIPine BESYLATE 10 MG TABLET (FP) PO SCH (11:04)
[2020-11-26] MEDS: PANTOPRAZOLE 40 MG TABLET PO SCH (11:04)
[2020-11-26] MEDS: LISINOPRIL 20 MG TABLET PO SCH (11:04)
[2020-11-26] MEDS: NICOTINE 21 MG/24 HOURS TOPICAL PATCH TD SCH (11:05)
[2020-11-26] MEDS: PRENATAL VITAMINS W/ FOLIC ACID TABLET (FP) PO SCH (11:05)
[2020-11-26 11:16] LABS: HEMOGLOBIN 12.7 GM/dL (11.7-16.9); MCH 30.4 pg (25.7-33.7); MCHC 34.3 g/dl (32.0-35.9); MEAN CELL VOLUME 88.7 fl (80-96); MEAN PLT VOLUME 9.5 fl (7.5-11.1); PLATELET COUNT 177 10^3/uL (134-434); RBC 4.18 M/mm3 (4.00-5.60); RDW 13.6 % (11.9-15.9); WHITE BLOOD COUNT 6.4 K/mm3 (4.0-10.0)
[2020-11-26] MEDS: LIDOCAINE 5% TOPICAL PATCH TP SCH (11:16)
[2020-11-26 11:24] LABS: ALBUMIN 2.9 g/dl (3.4-5.0); CALCIUM 8.3 mg/dL (8.5-10.1)
[2020-11-26 11:25] LABS: BLOOD UREA NITROGEN 22.7 mg/dL (7-18)
[2020-11-26 11:28] LABS: CREATININE 1.3 mg/dL (0.55-1.3)
[2020-11-26 11:29] LABS: BILIRUBIN,TOTAL 0.4 mg/dL (0.2-1); TOT PROT 6.9 g/dl (6.4-8.2)
[2020-11-26] MEDS: diazePAM 5 MG TABLET PO PRN (13:57)
[2020-11-26] MEDS: cloNIDine HCL 0.1 MG TABLET PO SCH ×2 (13:57→21:43)
[2020-11-26] MEDS: metFORMIN HCL 500 MG TABLET (FP) PO SCH (17:27)
[2020-11-26] MEDS: ATORVASTATIN CA 40 MG TABLET (FP) PO SCH (21:40)
[2020-11-26] MEDS: LIDOCAINE PATCH REMOVAL MC SCH (21:44)
[2020-11-27] MEDS ORDERED: methaDONE HCL 10 MG TABLET ONE (04:16)
[2020-11-27] MEDS ORDERED: methaDONE HCL 40 MG DISPERSABLE TABLET ONE (04:16)
[2020-11-27] MEDS: cloNIDine HCL 0.1 MG TABLET PO SCH ×3 (06:02→22:02)
[2020-11-27] MEDS: diazePAM 5 MG TABLET PO SCH ×3 (06:02→22:02)
[2020-11-27] MEDS: metFORMIN HCL 500 MG TABLET (FP) PO SCH ×2 (06:06→17:36)
[2020-11-27] MEDS: diazePAM 5 MG TABLET PO PRN (11:00)
[2020-11-27] MEDS: HYDROCHLOROTHIAZIDE 25 MG TABLET (FP) PO SCH (11:00)
[2020-11-27] MEDS: LIDOCAINE 5% TOPICAL PATCH TP SCH (11:00)
[2020-11-27] MEDS: LISINOPRIL 20 MG TABLET PO SCH (11:01)
[2020-11-27] MEDS: PRENATAL VITAMINS W/ FOLIC ACID TABLET (FP) PO SCH (11:01)
[2020-11-27] MEDS: PANTOPRAZOLE 40 MG TABLET PO SCH (11:01)
[2020-11-27] MEDS: amLODIPine BESYLATE 10 MG TABLET (FP) PO SCH (11:01)
[2020-11-27] MEDS: NICOTINE 21 MG/24 HOURS TOPICAL PATCH TD SCH (11:03)
[2020-11-27] MEDS: MELATONIN 5 MG TABLETS PO SCH (22:02)
[2020-11-27] MEDS: ATORVASTATIN CA 40 MG TABLET (FP) PO SCH (22:02)
[2020-11-27] MEDS: THIAMINE HCL 100 MG TABLET (FP) PO SCH (22:02)
[2020-11-27] MEDS: LIDOCAINE PATCH REMOVAL MC SCH (22:46)
[2020-11-28] MEDS ORDERED: methaDONE HCL 10 MG TABLET ONE (04:40)
[2020-11-28] MEDS ORDERED: methaDONE HCL 40 MG DISPERSABLE TABLET ONE (04:41)
[2020-11-28] MEDS: cloNIDine HCL 0.1 MG TABLET PO SCH ×3 (05:19→22:00)
[2020-11-28] MEDS: diazePAM 5 MG TABLET PO SCH ×2 (05:20→18:49)
[2020-11-28] MEDS: metFORMIN HCL 500 MG TABLET (FP) PO SCH ×2 (06:34→18:28)
[2020-11-28] MEDS: PRENATAL VITAMINS W/ FOLIC ACID TABLET (FP) PO SCH (10:41)
[2020-11-28] MEDS: HYDROCHLOROTHIAZIDE 25 MG TABLET (FP) PO SCH (10:41)
[2020-11-28] MEDS: PANTOPRAZOLE 40 MG TABLET PO SCH (10:41)
[2020-11-28] MEDS: LISINOPRIL 20 MG TABLET PO SCH (10:41)
[2020-11-28] MEDS: NICOTINE 21 MG/24 HOURS TOPICAL PATCH TD SCH (10:42)
[2020-11-28] MEDS: LIDOCAINE 5% TOPICAL PATCH TP SCH (10:42)
[2020-11-28] MEDS: amLODIPine BESYLATE 10 MG TABLET (FP) PO SCH (10:42)
[2020-11-28] MEDS: ATORVASTATIN CA 40 MG TABLET (FP) PO SCH (23:46)
[2020-11-28] MEDS: MELATONIN 5 MG TABLETS PO SCH (23:47)
[2020-11-28] MEDS: THIAMINE HCL 100 MG TABLET (FP) PO SCH (23:48)
[2020-11-29] MEDS: LIDOCAINE PATCH REMOVAL MC SCH (00:13)
[2020-11-29] MEDS ORDERED: methaDONE HCL 10 MG TABLET ONE (04:52)
[2020-11-29] MEDS ORDERED: methaDONE HCL 40 MG DISPERSABLE TABLET ONE (04:53)
[2020-11-29] MEDS: cloNIDine HCL 0.1 MG TABLET PO SCH ×2 (05:52→14:49)
[2020-11-29] MEDS ORDERED: diazePAM 5 MG TABLET PO ONE (06:00)
[2020-11-29] MEDS: metFORMIN HCL 500 MG TABLET (FP) PO SCH ×2 (06:13→18:28)
[2020-11-29] MEDS: LIDOCAINE 5% TOPICAL PATCH TP SCH (10:49)
[2020-11-29] MEDS: PANTOPRAZOLE 40 MG TABLET PO SCH (10:49)
[2020-11-29] MEDS: NICOTINE 21 MG/24 HOURS TOPICAL PATCH TD SCH (10:49)
[2020-11-29] MEDS: HYDROCHLOROTHIAZIDE 25 MG TABLET (FP) PO SCH (10:49)
[2020-11-29] MEDS: LISINOPRIL 20 MG TABLET PO SCH (10:50)
[2020-11-29] MEDS: PRENATAL VITAMINS W/ FOLIC ACID TABLET (FP) PO SCH (10:50)
[2020-11-29] MEDS: amLODIPine BESYLATE 10 MG TABLET (FP) PO SCH (10:50)
[2020-11-29 17:22] VITALS: BP 138/78; PULSE 73; TEMP 97.3
== END 2020-11-29 19:18 | disposition other institution (70) | DRG 773 ==
LOC: YASAS 18:29 → Y3N 11-26 08:45
PROVIDERS: ADMIT Allergy & Immunology; ATTEND Allergy & Immunology
PROC: HZ2ZZZZ Detoxification Services for Substance Abuse Treatment (ICD-10-PCS; principal; 2020-11-26)
DX: F10.230 Alcohol dependence with withdrawal, uncomplicated (principal); F11.20 Opioid dependence, uncomplicated; F14.20 Cocaine dependence, uncomplicated; F17.210 Nicotine dependence, cigarettes, uncomplicated; E78.5 Hyperlipidemia, unspecified; E11.9 Type 2 diabetes mellitus without complications; I10 Essential (primary) hypertension; J45.909 Unspecified asthma, uncomplicated; K21.9 Gastro-esophageal reflux disease without esophagitis; B18.2 Chronic viral hepatitis C; E66.01 Morbid (severe) obesity due to excess calories; Z68.42 Body mass index [BMI] 45.0-49.9, adult; Z79.84 Long term (current) use of oral hypoglycemic drugs; Z59.0 Homelessness
CPT/HCPCS: 36415; 80053; 82962; 84520; 85027; 86780; 93005; 93010; C9803; J0735; U0003; U0005

== ENCOUNTER 2020-11-29 17:57 | Inpatient (IN) | payer OTHER ==
[2020-11-29] MEDS ORDERED: LOPERAMIDE HCL 2 MG CAPSULE PO PRN (20:35)
[2020-11-29] MEDS ORDERED: MENTHOL/PHENOL 1 EACH UD MM PRN (20:35)
[2020-11-29] MEDS ORDERED: MAGNESIUM CITRATE 300 ML BOTTLE PO PRN (20:35)
[2020-11-29] MEDS ORDERED: MAG HYDROX/AL HYDROX/SIMETH 30 ML UNIT-DOSE CUP PO PRN (20:35)
[2020-11-29] MEDS ORDERED: MAGNESIUM HYDROX 2400MG/30ML ORAL SUSPENSION 30 ML CUP PO PRN (20:35)
[2020-11-29] MEDS ORDERED: guaiFENesin 200 MG/10 ML 10 ML UNIT-DOSE CUPS PO PRN (20:35)
[2020-11-29] MEDS ORDERED: P-EPHED 60MG/TRIPROLIDI 2.5MG TABLET PO PRN (20:35)
[2020-11-29] MEDS ORDERED: DOCUSATE SODIUM 100 MG CAPSULE (FP) PO PRN (21:03)
[2020-11-29] MEDS ORDERED: LISINOPRIL 5 MG TABLET PO ONE (21:33)
[2020-11-29] MEDS: ATORVASTATIN CA 40 MG TABLET (FP) PO SCH (22:14)
[2020-11-29] MEDS: MELATONIN 5 MG TABLETS PO SCH (22:15)
[2020-11-29] MEDS: THIAMINE HCL 100 MG TABLET (FP) PO SCH (22:15)
[2020-11-30] MEDS ORDERED: methaDONE 160 MG, methaDONE (DETOX) 10 MG PO SCH ×2 (06:00→06:15)
[2020-11-30] MEDS ORDERED: methaDONE HCL 40 MG DISPERSABLE TABLET PO SCH (06:00)
[2020-11-30] MEDS: metFORMIN HCL 500 MG TABLET (FP) PO SCH ×2 (06:19→17:14)
[2020-11-30] MEDS ORDERED: methaDONE HCL 10 MG TABLET ONE (06:28)
[2020-11-30] MEDS ORDERED: methaDONE HCL 40 MG DISPERSABLE TABLET ONE (06:28)
[2020-11-30] MEDS: HYDROCHLOROTHIAZIDE 25 MG TABLET (FP) PO SCH (11:00)
[2020-11-30] MEDS: LISINOPRIL 20 MG TABLET PO SCH (11:01)
[2020-11-30] MEDS: IBUPROFEN 400 MG TABLET (FP) PO PRN (11:02)
[2020-11-30] MEDS: amLODIPine BESYLATE 10 MG TABLET (FP) PO SCH (11:02)
[2020-11-30] MEDS: PANTOPRAZOLE 40 MG TABLET PO SCH (11:02)
[2020-11-30] MEDS: PRENATAL VITAMINS W/ FOLIC ACID TABLET (FP) PO SCH (11:09)
[2020-11-30] MEDS: ATORVASTATIN CA 40 MG TABLET (FP) PO SCH (22:08)
[2020-11-30] MEDS: MELATONIN 5 MG TABLETS PO SCH (22:08)
[2020-11-30] MEDS: THIAMINE HCL 100 MG TABLET (FP) PO SCH (22:08)
[2020-12-01] MEDS ORDERED: methaDONE HCL 10 MG TABLET ONE (02:58)
[2020-12-01] MEDS ORDERED: methaDONE HCL 40 MG DISPERSABLE TABLET ONE (02:58)
[2020-12-01] MEDS: metFORMIN HCL 500 MG TABLET (FP) PO SCH ×2 (06:02→17:09)
[2020-12-01] MEDS: amLODIPine BESYLATE 10 MG TABLET (FP) PO SCH (11:16)
[2020-12-01] MEDS: HYDROCHLOROTHIAZIDE 25 MG TABLET (FP) PO SCH (11:16)
[2020-12-01] MEDS: LISINOPRIL 20 MG TABLET PO SCH (11:16)
[2020-12-01] MEDS: PRENATAL VITAMINS W/ FOLIC ACID TABLET (FP) PO SCH (11:17)
[2020-12-01] MEDS: PANTOPRAZOLE 40 MG TABLET PO SCH (11:17)
[2020-12-01] MEDS: ACETAMINOPHEN 325 MG TABLET (FP) PO PRN (11:18)
[2020-12-01] MEDS ORDERED: LIDOCAINE 5% TOPICAL PATCH TP ONE (13:15)
[2020-12-01] MEDS: ATORVASTATIN CA 40 MG TABLET (FP) PO SCH (21:13)
[2020-12-01] MEDS: traZODone HCL 50 MG TABLET (FP) PO SCH (21:14)
[2020-12-01] MEDS: THIAMINE HCL 100 MG TABLET (FP) PO SCH (21:14)
[2020-12-01] MEDS: MELATONIN 5 MG TABLETS PO SCH (21:15)
[2020-12-01] MEDS ORDERED: LIDOCAINE PATCH REMOVAL MC ONE (22:00)
[2020-12-02] MEDS ORDERED: methaDONE HCL 10 MG TABLET ONE (05:45)
[2020-12-02] MEDS ORDERED: methaDONE HCL 40 MG DISPERSABLE TABLET ONE (05:45)
[2020-12-02] MEDS: HYDROCHLOROTHIAZIDE 25 MG TABLET (FP) PO SCH (06:42)
[2020-12-02] MEDS: metFORMIN HCL 500 MG TABLET (FP) PO SCH ×2 (06:42→16:06)
[2020-12-02] MEDS: LISINOPRIL 20 MG TABLET PO SCH (11:18)
[2020-12-02] MEDS: PANTOPRAZOLE 40 MG TABLET PO SCH (11:18)
[2020-12-02] MEDS: amLODIPine BESYLATE 10 MG TABLET (FP) PO SCH (11:18)
[2020-12-02] MEDS: PRENATAL VITAMINS W/ FOLIC ACID TABLET (FP) PO SCH (11:19)
[2020-12-02] MEDS: LIDOCAINE 5% TOPICAL PATCH TP SCH (11:21)
[2020-12-02] MEDS: ATORVASTATIN CA 40 MG TABLET (FP) PO SCH (22:04)
[2020-12-02] MEDS: traZODone HCL 50 MG TABLET (FP) PO SCH (22:04)
[2020-12-02] MEDS: THIAMINE HCL 100 MG TABLET (FP) PO SCH (22:05)
[2020-12-02] MEDS: LIDOCAINE PATCH REMOVAL MC SCH (22:05)
[2020-12-02] MEDS: MELATONIN 5 MG TABLETS PO SCH (22:06)
[2020-12-02] MEDS: METHYL SALICYLATE/MENTHOL OINT 30 GM TUBE TP SCH (22:06)
[2020-12-03] MEDS ORDERED: methaDONE HCL 10 MG TABLET ONE (03:26)
[2020-12-03] MEDS ORDERED: methaDONE HCL 40 MG DISPERSABLE TABLET ONE (03:26)
[2020-12-03] MEDS: metFORMIN HCL 500 MG TABLET (FP) PO SCH ×2 (06:44→17:56)
[2020-12-03] MEDS: HYDROCHLOROTHIAZIDE 25 MG TABLET (FP) PO SCH (06:44)
[2020-12-03] MEDS: PRENATAL VITAMINS W/ FOLIC ACID TABLET (FP) PO SCH (09:37)
[2020-12-03] MEDS: PANTOPRAZOLE 40 MG TABLET PO SCH (09:38)
[2020-12-03] MEDS: LISINOPRIL 20 MG TABLET PO SCH (09:38)
[2020-12-03] MEDS: LIDOCAINE 5% TOPICAL PATCH TP SCH (09:38)
[2020-12-03] MEDS: amLODIPine BESYLATE 10 MG TABLET (FP) PO SCH (09:38)
[2020-12-03] MEDS: METHYL SALICYLATE/MENTHOL OINT 30 GM TUBE TP SCH ×2 (09:39→21:43)
[2020-12-03] MEDS: ACETAMINOPHEN 325 MG TABLET (FP) PO PRN (17:56)
[2020-12-03] MEDS ORDERED: PT OWN MED DRAWER 7, Y5N ONE (19:32)
[2020-12-03] MEDS: ALBUTEROL SO4 HFA INHALER IH PRN (19:33)
[2020-12-03] MEDS: THIAMINE HCL 100 MG TABLET (FP) PO SCH (21:43)
[2020-12-03] MEDS: MELATONIN 5 MG TABLETS PO SCH (21:43)
[2020-12-03] MEDS: traZODone HCL 50 MG TABLET (FP) PO SCH (21:43)
[2020-12-03] MEDS: LIDOCAINE PATCH REMOVAL MC SCH (21:43)
[2020-12-03] MEDS: ATORVASTATIN CA 40 MG TABLET (FP) PO SCH (21:43)
[2020-12-04] MEDS ORDERED: methaDONE HCL 40 MG DISPERSABLE TABLET ONE (03:06)
[2020-12-04] MEDS ORDERED: methaDONE HCL 10 MG TABLET ONE (03:06)
[2020-12-04] MEDS: metFORMIN HCL 500 MG TABLET (FP) PO SCH ×2 (06:05→17:29)
[2020-12-04] MEDS: HYDROCHLOROTHIAZIDE 25 MG TABLET (FP) PO SCH (06:05)
[2020-12-04] MEDS: ALBUTEROL SO4 HFA INHALER IH PRN (10:54)
[2020-12-04] MEDS: PANTOPRAZOLE 40 MG TABLET PO SCH (10:55)
[2020-12-04] MEDS: LISINOPRIL 20 MG TABLET PO SCH (10:55)
[2020-12-04] MEDS: amLODIPine BESYLATE 10 MG TABLET (FP) PO SCH (10:55)
[2020-12-04] MEDS: LIDOCAINE 5% TOPICAL PATCH TP SCH (10:55)
[2020-12-04] MEDS: PRENATAL VITAMINS W/ FOLIC ACID TABLET (FP) PO SCH (10:55)
[2020-12-04] MEDS: METHYL SALICYLATE/MENTHOL OINT 30 GM TUBE TP SCH ×2 (10:57→21:13)
[2020-12-04] MEDS ORDERED: PT OWN MED DRAWER 7, Y5N ONE (19:39)
[2020-12-04] MEDS: ATORVASTATIN CA 40 MG TABLET (FP) PO SCH (21:13)
[2020-12-04] MEDS: MELATONIN 5 MG TABLETS PO SCH (21:13)
[2020-12-04] MEDS: traZODone HCL 50 MG TABLET (FP) PO SCH (21:13)
[2020-12-04] MEDS: THIAMINE HCL 100 MG TABLET (FP) PO SCH (21:13)
[2020-12-04] MEDS: LIDOCAINE PATCH REMOVAL MC SCH (21:14)
[2020-12-05] MEDS ORDERED: methaDONE HCL 10 MG TABLET ONE (03:08)
[2020-12-05] MEDS ORDERED: methaDONE HCL 40 MG DISPERSABLE TABLET ONE (03:08)
[2020-12-05] MEDS: HYDROCHLOROTHIAZIDE 25 MG TABLET (FP) PO SCH (06:16)
[2020-12-05] MEDS: metFORMIN HCL 500 MG TABLET (FP) PO SCH ×2 (06:16→17:19)
[2020-12-05] MEDS: LIDOCAINE 5% TOPICAL PATCH TP SCH (10:08)
[2020-12-05] MEDS: PANTOPRAZOLE 40 MG TABLET PO SCH (10:08)
[2020-12-05] MEDS: METHYL SALICYLATE/MENTHOL OINT 30 GM TUBE TP SCH ×2 (10:08→22:06)
[2020-12-05] MEDS: LISINOPRIL 20 MG TABLET PO SCH (10:08)
[2020-12-05] MEDS: PRENATAL VITAMINS W/ FOLIC ACID TABLET (FP) PO SCH (10:08)
[2020-12-05] MEDS: amLODIPine BESYLATE 10 MG TABLET (FP) PO SCH (10:08)
[2020-12-05] MEDS: ATORVASTATIN CA 40 MG TABLET (FP) PO SCH (22:05)
[2020-12-05] MEDS: MELATONIN 5 MG TABLETS PO SCH (22:05)
[2020-12-05] MEDS: LIDOCAINE PATCH REMOVAL MC SCH (22:06)
[2020-12-05] MEDS: traZODone HCL 50 MG TABLET (FP) PO SCH (22:06)
[2020-12-05] MEDS: THIAMINE HCL 100 MG TABLET (FP) PO SCH (22:06)
[2020-12-06] MEDS ORDERED: methaDONE HCL 40 MG DISPERSABLE TABLET ONE (03:21)
[2020-12-06] MEDS ORDERED: methaDONE HCL 10 MG TABLET ONE (03:21)
[2020-12-06] MEDS: metFORMIN HCL 500 MG TABLET (FP) PO SCH ×2 (06:16→17:39)
[2020-12-06] MEDS: HYDROCHLOROTHIAZIDE 25 MG TABLET (FP) PO SCH (06:17)
[2020-12-06] MEDS: LISINOPRIL 20 MG TABLET PO SCH (10:27)
[2020-12-06] MEDS: PANTOPRAZOLE 40 MG TABLET PO SCH (10:27)
[2020-12-06] MEDS: LIDOCAINE 5% TOPICAL PATCH TP SCH (10:27)
[2020-12-06] MEDS: PRENATAL VITAMINS W/ FOLIC ACID TABLET (FP) PO SCH (10:27)
[2020-12-06] MEDS: amLODIPine BESYLATE 10 MG TABLET (FP) PO SCH (10:27)
[2020-12-06] MEDS: METHYL SALICYLATE/MENTHOL OINT 30 GM TUBE TP SCH ×2 (10:28→22:24)
[2020-12-06] MEDS: traZODone HCL 50 MG TABLET (FP) PO SCH (22:21)
[2020-12-06] MEDS: LIDOCAINE PATCH REMOVAL MC SCH (22:21)
[2020-12-06] MEDS: ATORVASTATIN CA 40 MG TABLET (FP) PO SCH (22:21)
[2020-12-06] MEDS: THIAMINE HCL 100 MG TABLET (FP) PO SCH (22:21)
[2020-12-06] MEDS: MELATONIN 5 MG TABLETS PO SCH (22:21)
[2020-12-07] MEDS ORDERED: methaDONE HCL 10 MG TABLET ONE (03:14)
[2020-12-07] MEDS ORDERED: methaDONE HCL 40 MG DISPERSABLE TABLET ONE (03:14)
[2020-12-07] MEDS: HYDROCHLOROTHIAZIDE 25 MG TABLET (FP) PO SCH (06:41)
[2020-12-07] MEDS: metFORMIN HCL 500 MG TABLET (FP) PO SCH ×2 (06:41→16:33)
[2020-12-07] MEDS: PRENATAL VITAMINS W/ FOLIC ACID TABLET (FP) PO SCH (10:41)
[2020-12-07] MEDS: amLODIPine BESYLATE 10 MG TABLET (FP) PO SCH (10:42)
[2020-12-07] MEDS: LIDOCAINE 5% TOPICAL PATCH TP SCH (10:42)
[2020-12-07] MEDS: LISINOPRIL 20 MG TABLET PO SCH (10:42)
[2020-12-07] MEDS: PANTOPRAZOLE 40 MG TABLET PO SCH (10:42)
[2020-12-07] MEDS: METHYL SALICYLATE/MENTHOL OINT 30 GM TUBE TP SCH ×2 (10:59→21:04)
[2020-12-07] MEDS: LIDOCAINE PATCH REMOVAL MC SCH (21:04)
[2020-12-07] MEDS: THIAMINE HCL 100 MG TABLET (FP) PO SCH (21:04)
[2020-12-07] MEDS: traZODone HCL 50 MG TABLET (FP) PO SCH (21:04)
[2020-12-07] MEDS: ATORVASTATIN CA 40 MG TABLET (FP) PO SCH (21:04)
[2020-12-07] MEDS: MELATONIN 5 MG TABLETS PO SCH (21:04)
[2020-12-08] MEDS ORDERED: methaDONE HCL 40 MG DISPERSABLE TABLET PO SCH (06:00)
[2020-12-08] MEDS ORDERED: methaDONE HCL 40 MG DISPERSABLE TABLET ONE (06:09)
[2020-12-08] MEDS ORDERED: methaDONE HCL 10 MG TABLET ONE (06:09)
[2020-12-08] MEDS: metFORMIN HCL 500 MG TABLET (FP) PO SCH ×2 (06:12→16:22)
[2020-12-08] MEDS: HYDROCHLOROTHIAZIDE 25 MG TABLET (FP) PO SCH (06:12)
[2020-12-08] MEDS: LISINOPRIL 20 MG TABLET PO SCH (10:35)
[2020-12-08] MEDS: PANTOPRAZOLE 40 MG TABLET PO SCH (10:35)
[2020-12-08] MEDS: METHYL SALICYLATE/MENTHOL OINT 30 GM TUBE TP SCH ×2 (10:35→21:14)
[2020-12-08] MEDS: PRENATAL VITAMINS W/ FOLIC ACID TABLET (FP) PO SCH (10:35)
[2020-12-08] MEDS: amLODIPine BESYLATE 10 MG TABLET (FP) PO SCH (10:35)
[2020-12-08] MEDS: LIDOCAINE 5% TOPICAL PATCH TP SCH (10:35)
[2020-12-08] MEDS: IBUPROFEN 400 MG TABLET (FP) PO PRN (16:22)
[2020-12-08] MEDS: traZODone HCL 50 MG TABLET (FP) PO SCH (21:13)
[2020-12-08] MEDS: THIAMINE HCL 100 MG TABLET (FP) PO SCH (21:13)
[2020-12-08] MEDS: ATORVASTATIN CA 40 MG TABLET (FP) PO SCH (21:13)
[2020-12-08] MEDS: MELATONIN 5 MG TABLETS PO SCH (21:13)
[2020-12-08] MEDS: LIDOCAINE PATCH REMOVAL MC SCH (21:14)
[2020-12-09] MEDS ORDERED: methaDONE HCL 40 MG DISPERSABLE TABLET ONE (03:11)
[2020-12-09] MEDS ORDERED: methaDONE HCL 10 MG TABLET ONE (03:11)
[2020-12-09] MEDS: metFORMIN HCL 500 MG TABLET (FP) PO SCH ×2 (06:27→17:15)
[2020-12-09] MEDS: HYDROCHLOROTHIAZIDE 25 MG TABLET (FP) PO SCH (06:30)
[2020-12-09] MEDS: PANTOPRAZOLE 40 MG TABLET PO SCH (11:03)
[2020-12-09] MEDS: LISINOPRIL 20 MG TABLET PO SCH (11:03)
[2020-12-09] MEDS: amLODIPine BESYLATE 10 MG TABLET (FP) PO SCH (11:03)
[2020-12-09] MEDS: PRENATAL VITAMINS W/ FOLIC ACID TABLET (FP) PO SCH (11:03)
[2020-12-09] MEDS: IBUPROFEN 400 MG TABLET (FP) PO PRN (11:03)
[2020-12-09] MEDS: METHYL SALICYLATE/MENTHOL OINT 30 GM TUBE TP SCH ×2 (11:04→21:03)
[2020-12-09] MEDS: LIDOCAINE 5% TOPICAL PATCH TP SCH (11:04)
[2020-12-09] MEDS: THIAMINE HCL 100 MG TABLET (FP) PO SCH (21:03)
[2020-12-09] MEDS: ATORVASTATIN CA 40 MG TABLET (FP) PO SCH (21:03)
[2020-12-09] MEDS: traZODone HCL 50 MG TABLET (FP) PO SCH (21:03)
[2020-12-09] MEDS: MELATONIN 5 MG TABLETS PO SCH (21:03)
[2020-12-09] MEDS: LIDOCAINE PATCH REMOVAL MC SCH (21:04)
[2020-12-10] MEDS ORDERED: methaDONE HCL 10 MG TABLET ONE (05:14)
[2020-12-10] MEDS ORDERED: methaDONE HCL 40 MG DISPERSABLE TABLET ONE (05:14)
[2020-12-10] MEDS: metFORMIN HCL 500 MG TABLET (FP) PO SCH ×2 (06:16→18:04)
[2020-12-10] MEDS: HYDROCHLOROTHIAZIDE 25 MG TABLET (FP) PO SCH (06:17)
[2020-12-10] MEDS: LISINOPRIL 20 MG TABLET PO SCH (10:57)
[2020-12-10] MEDS: PANTOPRAZOLE 40 MG TABLET PO SCH (10:57)
[2020-12-10] MEDS: amLODIPine BESYLATE 10 MG TABLET (FP) PO SCH (10:57)
[2020-12-10] MEDS: LIDOCAINE 5% TOPICAL PATCH TP SCH (10:57)
[2020-12-10] MEDS: PRENATAL VITAMINS W/ FOLIC ACID TABLET (FP) PO SCH (10:57)
[2020-12-10] MEDS: ACETAMINOPHEN 325 MG TABLET (FP) PO PRN (10:59)
[2020-12-10] MEDS: METHYL SALICYLATE/MENTHOL OINT 30 GM TUBE TP SCH ×2 (11:00→21:25)
[2020-12-10] MEDS: ATORVASTATIN CA 40 MG TABLET (FP) PO SCH (21:23)
[2020-12-10] MEDS: THIAMINE HCL 100 MG TABLET (FP) PO SCH (21:23)
[2020-12-10] MEDS: LIDOCAINE PATCH REMOVAL MC SCH (21:24)
[2020-12-10] MEDS: MELATONIN 5 MG TABLETS PO SCH (21:24)
[2020-12-10] MEDS: traZODone HCL 50 MG TABLET (FP) PO SCH (21:25)
[2020-12-11] MEDS ORDERED: methaDONE HCL 10 MG TABLET ONE (04:13)
[2020-12-11] MEDS ORDERED: methaDONE HCL 40 MG DISPERSABLE TABLET ONE (04:13)
[2020-12-11] MEDS: metFORMIN HCL 500 MG TABLET (FP) PO SCH ×2 (06:11→16:20)
[2020-12-11] MEDS: HYDROCHLOROTHIAZIDE 25 MG TABLET (FP) PO SCH (06:12)
[2020-12-11] MEDS ORDERED: PT OWN MED DRAWER 7, Y5N ONE (09:09)
[2020-12-11] MEDS: DOCUSATE SODIUM 100 MG CAPSULE (FP) PO SCH (09:47)
[2020-12-11] MEDS: PANTOPRAZOLE 40 MG TABLET PO SCH (09:47)
[2020-12-11] MEDS: amLODIPine BESYLATE 10 MG TABLET (FP) PO SCH (09:47)
[2020-12-11] MEDS: LISINOPRIL 20 MG TABLET PO SCH (09:47)
[2020-12-11] MEDS: ALBUTEROL SO4 HFA INHALER IH PRN (09:47)
[2020-12-11] MEDS: PRENATAL VITAMINS W/ FOLIC ACID TABLET (FP) PO SCH (09:47)
[2020-12-11] MEDS: LIDOCAINE 5% TOPICAL PATCH TP SCH (09:48)
[2020-12-11] MEDS: METHYL SALICYLATE/MENTHOL OINT 30 GM TUBE TP SCH ×2 (09:48→22:14)
[2020-12-11] MEDS: ATORVASTATIN CA 40 MG TABLET (FP) PO SCH (22:13)
[2020-12-11] MEDS: traZODone HCL 50 MG TABLET (FP) PO SCH (22:13)
[2020-12-11] MEDS: THIAMINE HCL 100 MG TABLET (FP) PO SCH (22:13)
[2020-12-11] MEDS: LIDOCAINE PATCH REMOVAL MC SCH (22:14)
[2020-12-11] MEDS: MELATONIN 5 MG TABLETS PO SCH (22:14)
[2020-12-12] MEDS ORDERED: methaDONE HCL 40 MG DISPERSABLE TABLET ONE (03:56)
[2020-12-12] MEDS ORDERED: methaDONE HCL 10 MG TABLET ONE (03:56)
[2020-12-12] MEDS: HYDROCHLOROTHIAZIDE 25 MG TABLET (FP) PO SCH (06:40)
[2020-12-12] MEDS: metFORMIN HCL 500 MG TABLET (FP) PO SCH ×2 (06:40→17:36)
[2020-12-12] MEDS: PRENATAL VITAMINS W/ FOLIC ACID TABLET (FP) PO SCH (10:54)
[2020-12-12] MEDS: PANTOPRAZOLE 40 MG TABLET PO SCH (10:54)
[2020-12-12] MEDS: LISINOPRIL 20 MG TABLET PO SCH (10:54)
[2020-12-12] MEDS: DOCUSATE SODIUM 100 MG CAPSULE (FP) PO SCH (10:54)
[2020-12-12] MEDS: amLODIPine BESYLATE 10 MG TABLET (FP) PO SCH (10:54)
[2020-12-12] MEDS: METHYL SALICYLATE/MENTHOL OINT 30 GM TUBE TP SCH ×2 (10:55→22:23)
[2020-12-12] MEDS: LIDOCAINE 5% TOPICAL PATCH TP SCH (10:55)
[2020-12-12] MEDS: traZODone HCL 50 MG TABLET (FP) PO SCH (22:21)
[2020-12-12] MEDS: THIAMINE HCL 100 MG TABLET (FP) PO SCH (22:21)
[2020-12-12] MEDS: MELATONIN 5 MG TABLETS PO SCH (22:22)
[2020-12-12] MEDS: LIDOCAINE PATCH REMOVAL MC SCH (22:22)
[2020-12-12] MEDS: ATORVASTATIN CA 40 MG TABLET (FP) PO SCH (22:22)
[2020-12-13] MEDS ORDERED: methaDONE HCL 10 MG TABLET ONE (03:24)
[2020-12-13] MEDS ORDERED: methaDONE HCL 40 MG DISPERSABLE TABLET ONE (03:24)
[2020-12-13] MEDS: metFORMIN HCL 500 MG TABLET (FP) PO SCH (06:47)
[2020-12-13] MEDS: HYDROCHLOROTHIAZIDE 25 MG TABLET (FP) PO SCH (06:47)
[2020-12-13 07:38] VITALS: BP 163/89; PULSE 66; TEMP 97.2
[2020-12-13] MEDS: amLODIPine BESYLATE 10 MG TABLET (FP) PO SCH (10:17)
[2020-12-13] MEDS: LISINOPRIL 20 MG TABLET PO SCH (10:17)
[2020-12-13] MEDS: DOCUSATE SODIUM 100 MG CAPSULE (FP) PO SCH (10:18)
[2020-12-13] MEDS: METHYL SALICYLATE/MENTHOL OINT 30 GM TUBE TP SCH (10:18)
[2020-12-13] MEDS: PANTOPRAZOLE 40 MG TABLET PO SCH (10:18)
[2020-12-13] MEDS: PRENATAL VITAMINS W/ FOLIC ACID TABLET (FP) PO SCH (10:22)
[2020-12-13] MEDS: LIDOCAINE 5% TOPICAL PATCH TP SCH (10:23)
== END 2020-12-13 10:40 | disposition home or self-care (01) | DRG 772 ==
LOC: YASAS 17:57 → Y5N 17:58
PROVIDERS: ADMIT Allergy & Immunology; ATTEND Allergy & Immunology
PROC: HZ42ZZZ Group Counseling for Substance Abuse Treatment, Cognitive-Behavioral (ICD-10-PCS; principal; 2020-11-29)
DX: F10.20 Alcohol dependence, uncomplicated (principal); F11.20 Opioid dependence, uncomplicated; F14.20 Cocaine dependence, uncomplicated; F13.20 Sedative, hypnotic or anxiolytic dependence, uncomplicated; F17.210 Nicotine dependence, cigarettes, uncomplicated; F19.282 Other psychoactive substance dependence with psychoactive substance-induced sleep disorder; F19.24 Other psychoactive substance dependence with psychoactive substance-induced mood disorder; E78.5 Hyperlipidemia, unspecified; E11.9 Type 2 diabetes mellitus without complications; Z79.84 Long term (current) use of oral hypoglycemic drugs; I10 Essential (primary) hypertension; J45.909 Unspecified asthma, uncomplicated; K21.9 Gastro-esophageal reflux disease without esophagitis; E66.01 Morbid (severe) obesity due to excess calories; Z68.42 Body mass index [BMI] 45.0-49.9, adult; Z99.89 Dependence on other enabling machines and devices; Z56.0 Unemployment, unspecified; Z59.0 Homelessness
CPT/HCPCS: 82962

== ENCOUNTER 2021-04-25 15:32 | Inpatient (IN) | payer OTHER ==
[2021-04-25 19:00] VITALS: BMI 44.3
[2021-04-25] MEDS ORDERED: guaiFENesin 200 MG/10 ML 10 ML UNIT-DOSE CUPS PO PRN (20:49)
[2021-04-25] MEDS ORDERED: ACETAMINOPHEN 325 MG TABLET (FP) PO PRN (20:49)
[2021-04-25] MEDS ORDERED: DICYCLOMINE HCL 10 MG CAPSULE PO PRN (20:49)
[2021-04-25] MEDS ORDERED: MAGNESIUM HYDROX 2400MG/30ML ORAL SUSPENSION 30 ML CUP PO PRN (20:49)
[2021-04-25] MEDS ORDERED: BISMUTH SUBSALICYLATE 524 MG/30 ML PO PRN (20:49)
[2021-04-25] MEDS ORDERED: MAG HYDROX/AL HYDROX/SIMETH 30 ML UNIT-DOSE CUP PO PRN (20:49)
[2021-04-25] MEDS ORDERED: NALOXONE HCL 0.4 MG/ML VIAL IM PRN (20:49)
[2021-04-25] MEDS ORDERED: P-EPHED 60MG/TRIPROLIDI 2.5MG TABLET PO PRN (20:49)
[2021-04-25] MEDS ORDERED: MENTHOL/PHENOL 1 EACH UD MM PRN (20:49)
[2021-04-25] MEDS ORDERED: MAGNESIUM CITRATE 300 ML BOTTLE PO PRN (20:49)
[2021-04-25] MEDS ORDERED: IBUPROFEN 400 MG TABLET (FP) PO PRN (20:49)
[2021-04-25] MEDS ORDERED: ONDANSETRON *ODT* 4 MG TABLET SL PRN (20:49)
[2021-04-25] MEDS ORDERED: NICOTINE POLACRILEX 2 MG GUM BUC PRN (20:49)
[2021-04-25] MEDS ORDERED: NALOXONE (NARCAN) HCL 4 MG/0.1 ML SPRAY NS PRN (20:49)
[2021-04-26] MEDS: MELATONIN 5 MG TABLETS PO SCH ×2 (00:59→22:19)
[2021-04-26] MEDS ORDERED: cloNIDine HCL 0.1 MG TABLET PO ONE (00:59)
[2021-04-26] MEDS: THIAMINE HCL 100 MG TABLET (FP) PO SCH ×2 (00:59→22:19)
[2021-04-26] MEDS: METHOCARBAMOL 500 MG TABLET PO PRN (06:51)
[2021-04-26] MEDS: hydrOXYzine PAMOATE 25 MG CAPSULE (FP) PO PRN (06:51)
[2021-04-26] MEDS ORDERED: methaDONE HCL 40 MG DISPERSABLE TABLET PO SCH (09:15)
[2021-04-26] MEDS ORDERED: chlordiazePOXIDE HCL 25 MG CAPSULE PO PRN (09:16)
[2021-04-26] MEDS ORDERED: methaDONE HCL 10 MG TABLET ONE (09:57)
[2021-04-26] MEDS ORDERED: methaDONE HCL 40 MG DISPERSABLE TABLET ONE (09:57)
[2021-04-26] MEDS: NICOTINE 21 MG/24 HOURS TOPICAL PATCH TD SCH (10:04)
[2021-04-26] MEDS: NIFEdipine E.R 60 MG TABLET PO SCH (10:06)
[2021-04-26] MEDS: chlordiazePOXIDE HCL 25 MG CAPSULE PO SCH ×3 (10:06→22:19)
[2021-04-26] MEDS: PRENATAL VITAMINS W/ FOLIC ACID TABLET (FP) PO SCH (10:06)
[2021-04-26] MEDS: PANTOPRAZOLE 40 MG TABLET PO SCH (10:06)
[2021-04-26 11:56] LABS: HEMATOCRIT 35.6 % (35.4-49); HEMOGLOBIN 11.8 GM/dL (11.7-16.9); MCH 29.5 pg (25.7-33.7); MCHC 33.2 g/dl (32.0-35.9); MEAN CELL VOLUME 88.7 fl (80-96); PLATELET COUNT 193 10^3/uL (134-434); RBC 4.01 M/mm3 (4.00-5.60); RDW 13.9 % (11.9-15.9); WHITE BLOOD COUNT 5.6 K/mm3 (4.0-10.0)
[2021-04-26 12:58] LABS: HIV INTERPRETATION NEGATIVE (NEGATIVE)
[2021-04-26 13:14] LABS: ALBUMIN 3.1 g/dl (3.4-5.0)
[2021-04-26 13:15] LABS: CALCIUM 8.2 mg/dL (8.5-10.1)
[2021-04-26 13:16] LABS: BLOOD UREA NITROGEN 19.9 mg/dL (7-18)
[2021-04-26 13:17] LABS: CREATININE 1.3 mg/dL (0.55-1.3)
[2021-04-26 13:20] LABS: BILIRUBIN,TOTAL 0.3 mg/dL (0.2-1); TOT PROT 6.8 g/dl (6.4-8.2)
[2021-04-26] MEDS: DOCUSATE SODIUM 100 MG CAPSULE (FP) PO SCH ×2 (15:26→22:19)
[2021-04-26] MEDS: ATORVASTATIN CA 40 MG TABLET (FP) PO SCH (22:19)
[2021-04-27] MEDS ORDERED: methaDONE HCL 40 MG DISPERSABLE TABLET ONE (04:17)
[2021-04-27] MEDS ORDERED: methaDONE HCL 10 MG TABLET ONE (04:17)
[2021-04-27] MEDS: chlordiazePOXIDE HCL 25 MG CAPSULE PO SCH ×4 (05:56→22:28)
[2021-04-27] MEDS: DOCUSATE SODIUM 100 MG CAPSULE (FP) PO SCH ×3 (06:07→22:29)
[2021-04-27] MEDS: NIFEdipine E.R 60 MG TABLET PO SCH (10:22)
[2021-04-27] MEDS: PANTOPRAZOLE 40 MG TABLET PO SCH (10:22)
[2021-04-27] MEDS: ACETAMINOPHEN 325 MG TABLET (FP) PO PRN (10:22)
[2021-04-27] MEDS: PRENATAL VITAMINS W/ FOLIC ACID TABLET (FP) PO SCH (10:23)
[2021-04-27] MEDS: NICOTINE 21 MG/24 HOURS TOPICAL PATCH TD SCH (10:23)
[2021-04-27] MEDS: POTASSIUM CHLORIDE TABS 20 MEQ TABLET.ER (FP) PO SCH (18:10)
[2021-04-27] MEDS: cloNIDine HCL 0.1 MG TABLET PO PRN ×2 (18:10→22:29)
[2021-04-27] MEDS: hydrOXYzine PAMOATE 25 MG CAPSULE (FP) PO PRN (18:12)
[2021-04-27] MEDS: ASPIRIN 81 MG CHEWABLE TABLETS PO SCH (22:28)
[2021-04-27] MEDS: ATORVASTATIN CA 40 MG TABLET (FP) PO SCH (22:29)
[2021-04-27] MEDS: MELATONIN 5 MG TABLETS PO SCH (22:29)
[2021-04-27] MEDS: LISINOPRIL 20 MG TABLET PO SCH (22:29)
[2021-04-27] MEDS: THIAMINE HCL 100 MG TABLET (FP) PO SCH (22:29)
[2021-04-28] MEDS ORDERED: methaDONE HCL 10 MG TABLET ONE (04:19)
[2021-04-28] MEDS ORDERED: methaDONE HCL 40 MG DISPERSABLE TABLET ONE (04:19)
[2021-04-28] MEDS: DOCUSATE SODIUM 100 MG CAPSULE (FP) PO SCH ×3 (06:21→22:30)
[2021-04-28] MEDS: chlordiazePOXIDE HCL 25 MG CAPSULE PO SCH ×4 (06:22→22:29)
[2021-04-28] MEDS: PRENATAL VITAMINS W/ FOLIC ACID TABLET (FP) PO SCH (10:19)
[2021-04-28] MEDS: LISINOPRIL 20 MG TABLET PO SCH (10:20)
[2021-04-28] MEDS: NIFEdipine E.R 60 MG TABLET PO SCH (10:20)
[2021-04-28] MEDS: PANTOPRAZOLE 40 MG TABLET PO SCH (10:20)
[2021-04-28] MEDS: POTASSIUM CHLORIDE TABS 20 MEQ TABLET.ER (FP) PO SCH (10:20)
[2021-04-28] MEDS: ASPIRIN 81 MG CHEWABLE TABLETS PO SCH (10:20)
[2021-04-28] MEDS: NICOTINE 21 MG/24 HOURS TOPICAL PATCH TD SCH (10:44)
[2021-04-28] MEDS: cloNIDine HCL 0.1 MG TABLET PO PRN (18:35)
[2021-04-28] MEDS: ATORVASTATIN CA 40 MG TABLET (FP) PO SCH (22:30)
[2021-04-28] MEDS: THIAMINE HCL 100 MG TABLET (FP) PO SCH (22:30)
[2021-04-28] MEDS: MELATONIN 5 MG TABLETS PO SCH (22:30)
[2021-04-29] MEDS ORDERED: chlordiazePOXIDE HCL 10 MG CAPSULE PO PRN
[2021-04-29] MEDS ORDERED: methaDONE HCL 10 MG TABLET ONE (04:34)
[2021-04-29] MEDS ORDERED: methaDONE HCL 40 MG DISPERSABLE TABLET ONE (04:34)
[2021-04-29] MEDS: DOCUSATE SODIUM 100 MG CAPSULE (FP) PO SCH ×3 (05:07→22:48)
[2021-04-29] MEDS: chlordiazePOXIDE HCL 10 MG CAPSULE PO SCH ×4 (05:08→22:48)
[2021-04-29] MEDS: LISINOPRIL 20 MG TABLET PO SCH (10:57)
[2021-04-29] MEDS: NIFEdipine E.R 60 MG TABLET PO SCH (10:57)
[2021-04-29] MEDS: ASPIRIN 81 MG CHEWABLE TABLETS PO SCH (10:57)
[2021-04-29] MEDS: PANTOPRAZOLE 40 MG TABLET PO SCH (10:57)
[2021-04-29] MEDS: PRENATAL VITAMINS W/ FOLIC ACID TABLET (FP) PO SCH (10:57)
[2021-04-29] MEDS: POTASSIUM CHLORIDE TABS 20 MEQ TABLET.ER (FP) PO SCH (10:57)
[2021-04-29] MEDS: NICOTINE 21 MG/24 HOURS TOPICAL PATCH TD SCH (11:15)
[2021-04-29] MEDS: METHOCARBAMOL 500 MG TABLET PO PRN (14:33)
[2021-04-29] MEDS: hydrOXYzine PAMOATE 25 MG CAPSULE (FP) PO PRN ×2 (17:56→22:48)
[2021-04-29] MEDS: ALBUTEROL SO4 HFA INHALER IH PRN (22:43)
[2021-04-29] MEDS: ATORVASTATIN CA 40 MG TABLET (FP) PO SCH (22:48)
[2021-04-29] MEDS: THIAMINE HCL 100 MG TABLET (FP) PO SCH (22:48)
[2021-04-29] MEDS: MELATONIN 5 MG TABLETS PO SCH (22:48)
[2021-04-30] MEDS ORDERED: methaDONE HCL 10 MG TABLET ONE (04:22)
[2021-04-30] MEDS ORDERED: methaDONE HCL 40 MG DISPERSABLE TABLET ONE (04:23)
[2021-04-30] MEDS: DOCUSATE SODIUM 100 MG CAPSULE (FP) PO SCH ×3 (05:57→22:48)
[2021-04-30] MEDS: chlordiazePOXIDE HCL 10 MG CAPSULE PO SCH ×2 (05:57→18:14)
[2021-04-30] MEDS: METHOCARBAMOL 500 MG TABLET PO PRN ×2 (05:58→22:48)
[2021-04-30] MEDS: cloNIDine HCL 0.1 MG TABLET PO PRN ×2 (08:16→13:45)
[2021-04-30] MEDS: PRENATAL VITAMINS W/ FOLIC ACID TABLET (FP) PO SCH (11:28)
[2021-04-30] MEDS: POTASSIUM CHLORIDE TABS 20 MEQ TABLET.ER (FP) PO SCH (11:28)
[2021-04-30] MEDS: NIFEdipine E.R 60 MG TABLET PO SCH (11:29)
[2021-04-30] MEDS: NICOTINE 21 MG/24 HOURS TOPICAL PATCH TD SCH (11:29)
[2021-04-30] MEDS: PANTOPRAZOLE 40 MG TABLET PO SCH (11:29)
[2021-04-30] MEDS: ASPIRIN 81 MG CHEWABLE TABLETS PO SCH (11:29)
[2021-04-30] MEDS: LISINOPRIL 20 MG TABLET PO SCH (11:29)
[2021-04-30 14:11] LABS: SARS-CoV-2 NAA Not Detected (Not Detected)
[2021-04-30] MEDS: ALBUTEROL SO4 HFA INHALER IH PRN ×2 (18:16→22:47)
[2021-04-30] MEDS: THIAMINE HCL 100 MG TABLET (FP) PO SCH (22:48)
[2021-04-30] MEDS: hydrOXYzine PAMOATE 25 MG CAPSULE (FP) PO PRN (22:48)
[2021-04-30] MEDS: MELATONIN 5 MG TABLETS PO SCH (22:48)
[2021-04-30] MEDS: ATORVASTATIN CA 40 MG TABLET (FP) PO SCH (22:48)
[2021-05-01] MEDS ORDERED: methaDONE HCL 40 MG DISPERSABLE TABLET ONE (04:13)
[2021-05-01] MEDS ORDERED: methaDONE HCL 10 MG TABLET ONE (04:13)
[2021-05-01] MEDS ORDERED: chlordiazePOXIDE HCL 10 MG CAPSULE PO ONE (05:00)
[2021-05-01] MEDS: DOCUSATE SODIUM 100 MG CAPSULE (FP) PO SCH (05:30)
[2021-05-01] MEDS: METHOCARBAMOL 500 MG TABLET PO PRN (05:31)
[2021-05-01] MEDS: ACETAMINOPHEN 325 MG TABLET (FP) PO PRN (05:32)
[2021-05-01 09:31] VITALS: BP 135/84; PULSE 84; TEMP 97.3
[2021-05-01] MEDS: ASPIRIN 81 MG CHEWABLE TABLETS PO SCH (10:56)
[2021-05-01] MEDS: NICOTINE 21 MG/24 HOURS TOPICAL PATCH TD SCH (10:56)
[2021-05-01] MEDS: LISINOPRIL 20 MG TABLET PO SCH (10:56)
[2021-05-01] MEDS: POTASSIUM CHLORIDE TABS 20 MEQ TABLET.ER (FP) PO SCH (10:56)
[2021-05-01] MEDS: PRENATAL VITAMINS W/ FOLIC ACID TABLET (FP) PO SCH (10:56)
[2021-05-01] MEDS: PANTOPRAZOLE 40 MG TABLET PO SCH (10:57)
[2021-05-01] MEDS: NIFEdipine E.R 60 MG TABLET PO SCH (10:57)
== END 2021-05-01 11:21 | disposition home or self-care (01) | DRG 773 ==
LOC: YASAS 15:32 → Y3N 21:39
PROVIDERS: ADMIT Allergy & Immunology; ATTEND Allergy & Immunology
PROC: HZ2ZZZZ Detoxification Services for Substance Abuse Treatment (ICD-10-PCS; principal; 2021-04-25)
DX: F10.230 Alcohol dependence with withdrawal, uncomplicated (principal); F11.20 Opioid dependence, uncomplicated; F14.20 Cocaine dependence, uncomplicated; F12.20 Cannabis dependence, uncomplicated; F17.210 Nicotine dependence, cigarettes, uncomplicated; F19.24 Other psychoactive substance dependence with psychoactive substance-induced mood disorder; E83.51 Hypocalcemia; E88.09 Other disorders of plasma-protein metabolism, not elsewhere classified; E87.6 Hypokalemia; E78.5 Hyperlipidemia, unspecified; E11.9 Type 2 diabetes mellitus without complications; Z79.84 Long term (current) use of oral hypoglycemic drugs; E66.01 Morbid (severe) obesity due to excess calories; Z68.41 Body mass index [BMI] 40.0-44.9, adult; I10 Essential (primary) hypertension; J45.20 Mild intermittent asthma, uncomplicated; K21.9 Gastro-esophageal reflux disease without esophagitis; K59.00 Constipation, unspecified; R79.89 Other specified abnormal findings of blood chemistry; Z91.013 Allergy to seafood; Z59.00 Homelessness unspecified
CPT/HCPCS: 36415; 80053; 82962; 84132; 85027; 86780; 87389; C9803; J0735; Q0162; U0003; U0005

== ENCOUNTER 2021-10-31 18:47 | Inpatient (IN) | payer OTHER ==
[2021-10-31] MEDS ORDERED: P-EPHED 60MG/TRIPROLIDI 2.5MG TABLET PO PRN (19:37)
[2021-10-31] MEDS ORDERED: NICOTINE POLACRILEX 2 MG GUM BC PRN (19:37)
[2021-10-31] MEDS ORDERED: guaiFENesin 200 MG/10 ML 10 ML UNIT-DOSE CUPS PO PRN (19:37)
[2021-10-31] MEDS ORDERED: NALOXONE HCL (KLOXXADO) 8 MG SPRAY NS PRN (19:37)
[2021-10-31] MEDS ORDERED: MAG HYDROX/AL HYDROX/SIMETH 30 ML UNIT-DOSE CUP PO PRN (19:37)
[2021-10-31] MEDS ORDERED: NALOXONE HCL 0.4 MG/ML VIAL IM PRN (19:37)
[2021-10-31] MEDS ORDERED: MAGNESIUM CITRATE 300 ML BOTTLE PO PRN (19:37)
[2021-10-31] MEDS ORDERED: ACETAMINOPHEN 325 MG TABLET (FP) PO PRN (19:37)
[2021-10-31] MEDS ORDERED: MAGNESIUM HYDROX 2400MG/30ML ORAL SUSPENSION 30 ML CUP PO PRN (19:37)
[2021-10-31] MEDS ORDERED: LOPERAMIDE HCL 2 MG CAPSULE PO PRN (19:37)
[2021-10-31 20:14] VITALS: BMI 38.6
[2021-11-01] MEDS: MELATONIN 5 MG TABLETS PO SCH ×2 (04:16→21:47)
[2021-11-01] MEDS: THIAMINE HCL 100 MG TABLET (FP) PO SCH ×2 (04:17→21:47)
[2021-11-01] MEDS ORDERED: ALBUTEROL SO4 HFA INHALER IH PRN (08:29)
[2021-11-01] MEDS ORDERED: LISINOPRIL 20 MG TABLET PO SCH (10:00)
[2021-11-01] MEDS ORDERED: methaDONE HCL 10 MG TABLET PO ONE (10:41)
[2021-11-01] MEDS: SULFAMETHOXAZOLE/TRIMETHOPRIM 800MG/160MG D.S. TABLET PO SCH ×2 (11:56→21:47)
[2021-11-01] MEDS: PRENATAL VITAMINS W/ FOLIC ACID TABLET (FP) PO SCH (11:57)
[2021-11-01] MEDS: ASPIRIN COATED 81 MG TABLET.EC PO SCH (11:57)
[2021-11-01] MEDS: NIFEdipine E.R 60 MG TABLET PO SCH (11:57)
[2021-11-01] MEDS: PANTOPRAZOLE 40 MG TABLET PO SCH (11:57)
[2021-11-01] MEDS: NICOTINE 14 MG/24 HOURS TOPICAL PATCH TD SCH (11:57)
[2021-11-01] MEDS: LISINOPRIL 20 MG TABLET PO SCH (11:57)
[2021-11-01] MEDS: COLLAGENASE CLOSTRIDIUM HIST. 30 GRAMS TUBE TP SCH (11:58)
[2021-11-01 12:41] LABS: HEMATOCRIT 30.7 % (35.4-49); HEMOGLOBIN 10.5 GM/dL (11.7-16.9); MCH 29.1 pg (25.7-33.7); MCHC 34.1 g/dl (32.0-35.9); MEAN CELL VOLUME 85.4 fl (80-96); MEAN PLT VOLUME 8.5 fl (7.5-11.1); PLATELET COUNT 270 10^3/uL (134-434); RBC 3.59 M/mm3 (4.00-5.60); RDW 13.7 % (11.9-15.9); WHITE BLOOD COUNT 6.8 K/mm3 (4.0-10.0)
[2021-11-01 12:48] LABS: CALCIUM 8.9 mg/dL (8.5-10.1)
[2021-11-01 12:49] LABS: ALBUMIN 2.9 g/dl (3.4-5.0); BLOOD UREA NITROGEN 22.9 mg/dL (7-18)
[2021-11-01 12:52] LABS: CREATININE 1.8 mg/dL (0.55-1.3)
[2021-11-01 12:54] LABS: BILIRUBIN,TOTAL 0.4 mg/dL (0.2-1)
[2021-11-01 13:19] LABS: SYPHILIS W/ RPR CONF NON-REACTIVE (NONREACTIVE)
[2021-11-01] MEDS: DOCUSATE SODIUM 100 MG CAPSULE (FP) PO SCH ×2 (13:33→21:47)
[2021-11-01] MEDS: IBUPROFEN 400 MG TABLET (FP) PO PRN (21:46)
[2021-11-01] MEDS: ATORVASTATIN CA 40 MG TABLET (FP) PO SCH (21:47)
[2021-11-02] MEDS ORDERED: methaDONE HCL 10 MG TABLET PO ONE (06:00)
[2021-11-02] MEDS: DOCUSATE SODIUM 100 MG CAPSULE (FP) PO SCH ×3 (06:47→21:43)
[2021-11-02 07:54] VITALS: RESP 18
[2021-11-02] MEDS: PRENATAL VITAMINS W/ FOLIC ACID TABLET (FP) PO SCH (10:06)
[2021-11-02] MEDS: COLLAGENASE CLOSTRIDIUM HIST. 30 GRAMS TUBE TP SCH (10:07)
[2021-11-02] MEDS: LISINOPRIL 20 MG TABLET PO SCH (10:07)
[2021-11-02] MEDS: ASPIRIN COATED 81 MG TABLET.EC PO SCH (10:07)
[2021-11-02] MEDS: NIFEdipine E.R 60 MG TABLET PO SCH (10:07)
[2021-11-02] MEDS: NICOTINE 14 MG/24 HOURS TOPICAL PATCH TD SCH (10:07)
[2021-11-02] MEDS: PANTOPRAZOLE 40 MG TABLET PO SCH (10:07)
[2021-11-02] MEDS: SULFAMETHOXAZOLE/TRIMETHOPRIM 800MG/160MG D.S. TABLET PO SCH ×2 (10:07→21:43)
[2021-11-02] MEDS: ATORVASTATIN CA 40 MG TABLET (FP) PO SCH (21:43)
[2021-11-02] MEDS: MELATONIN 5 MG TABLETS PO SCH (21:44)
[2021-11-02] MEDS: THIAMINE HCL 100 MG TABLET (FP) PO SCH (21:44)
[2021-11-03] MEDS ORDERED: methaDONE HCL 40 MG DISPERSABLE TABLET PO ONE (06:00)
[2021-11-03] MEDS: DOCUSATE SODIUM 100 MG CAPSULE (FP) PO SCH ×3 (06:33→21:24)
[2021-11-03] MEDS: SULFAMETHOXAZOLE/TRIMETHOPRIM 800MG/160MG D.S. TABLET PO SCH ×2 (10:09→21:24)
[2021-11-03] MEDS: ASPIRIN COATED 81 MG TABLET.EC PO SCH (10:09)
[2021-11-03] MEDS: PRENATAL VITAMINS W/ FOLIC ACID TABLET (FP) PO SCH (10:09)
[2021-11-03] MEDS: NICOTINE 14 MG/24 HOURS TOPICAL PATCH TD SCH (10:09)
[2021-11-03] MEDS: LISINOPRIL 20 MG TABLET PO SCH (10:09)
[2021-11-03] MEDS: PANTOPRAZOLE 40 MG TABLET PO SCH (10:09)
[2021-11-03] MEDS: COLLAGENASE CLOSTRIDIUM HIST. 30 GRAMS TUBE TP SCH (10:10)
[2021-11-03] MEDS: NIFEdipine E.R 60 MG TABLET PO SCH (10:10)
[2021-11-03] MEDS: MELATONIN 5 MG TABLETS PO SCH (21:24)
[2021-11-03] MEDS: THIAMINE HCL 100 MG TABLET (FP) PO SCH (21:24)
[2021-11-03] MEDS: ATORVASTATIN CA 40 MG TABLET (FP) PO SCH (21:24)
[2021-11-04] MEDS ORDERED: methaDONE HCL 10 MG TABLET PO ONE (06:00)
[2021-11-04] MEDS: DOCUSATE SODIUM 100 MG CAPSULE (FP) PO SCH ×3 (06:26→21:26)
[2021-11-04] MEDS: PRENATAL VITAMINS W/ FOLIC ACID TABLET (FP) PO SCH (10:07)
[2021-11-04] MEDS: NICOTINE 14 MG/24 HOURS TOPICAL PATCH TD SCH (10:07)
[2021-11-04] MEDS: NIFEdipine E.R 60 MG TABLET PO SCH (10:08)
[2021-11-04] MEDS: PANTOPRAZOLE 40 MG TABLET PO SCH (10:08)
[2021-11-04] MEDS: ASPIRIN COATED 81 MG TABLET.EC PO SCH (10:08)
[2021-11-04] MEDS: LISINOPRIL 20 MG TABLET PO SCH (10:08)
[2021-11-04] MEDS: SULFAMETHOXAZOLE/TRIMETHOPRIM 800MG/160MG D.S. TABLET PO SCH ×2 (10:08→21:26)
[2021-11-04] MEDS: COLLAGENASE CLOSTRIDIUM HIST. 30 GRAMS TUBE TP SCH (10:08)
[2021-11-04] MEDS: MELATONIN 5 MG TABLETS PO SCH (21:26)
[2021-11-04] MEDS: ATORVASTATIN CA 40 MG TABLET (FP) PO SCH (21:27)
[2021-11-04] MEDS: THIAMINE HCL 100 MG TABLET (FP) PO SCH (21:27)
[2021-11-05] MEDS ORDERED: methaDONE HCL 10 MG TABLET PO SCH (06:00)
[2021-11-05] MEDS: DOCUSATE SODIUM 100 MG CAPSULE (FP) PO SCH ×3 (06:27→21:41)
[2021-11-05] MEDS: PRENATAL VITAMINS W/ FOLIC ACID TABLET (FP) PO SCH (10:10)
[2021-11-05] MEDS: ASPIRIN COATED 81 MG TABLET.EC PO SCH (10:10)
[2021-11-05] MEDS: LISINOPRIL 20 MG TABLET PO SCH (10:10)
[2021-11-05] MEDS: NIFEdipine E.R 60 MG TABLET PO SCH (10:10)
[2021-11-05] MEDS: NICOTINE 14 MG/24 HOURS TOPICAL PATCH TD SCH (10:10)
[2021-11-05] MEDS: PANTOPRAZOLE 40 MG TABLET PO SCH (10:11)
[2021-11-05] MEDS: COLLAGENASE CLOSTRIDIUM HIST. 30 GRAMS TUBE TP SCH (10:11)
[2021-11-05] MEDS: SULFAMETHOXAZOLE/TRIMETHOPRIM 800MG/160MG D.S. TABLET PO SCH ×2 (10:11→21:41)
[2021-11-05] MEDS: MELATONIN 5 MG TABLETS PO SCH (21:41)
[2021-11-05] MEDS: THIAMINE HCL 100 MG TABLET (FP) PO SCH (21:41)
[2021-11-05] MEDS: ATORVASTATIN CA 40 MG TABLET (FP) PO SCH (21:41)
[2021-11-06] MEDS: DOCUSATE SODIUM 100 MG CAPSULE (FP) PO SCH ×3 (06:35→21:51)
[2021-11-06] MEDS: LISINOPRIL 20 MG TABLET PO SCH (10:15)
[2021-11-06] MEDS: PANTOPRAZOLE 40 MG TABLET PO SCH (10:15)
[2021-11-06] MEDS: ASPIRIN COATED 81 MG TABLET.EC PO SCH (10:15)
[2021-11-06] MEDS: PRENATAL VITAMINS W/ FOLIC ACID TABLET (FP) PO SCH (10:15)
[2021-11-06] MEDS: SULFAMETHOXAZOLE/TRIMETHOPRIM 800MG/160MG D.S. TABLET PO SCH ×2 (10:15→21:51)
[2021-11-06] MEDS: NICOTINE 14 MG/24 HOURS TOPICAL PATCH TD SCH (10:15)
[2021-11-06] MEDS: COLLAGENASE CLOSTRIDIUM HIST. 30 GRAMS TUBE TP SCH (10:16)
[2021-11-06] MEDS: NIFEdipine E.R 60 MG TABLET PO SCH (10:16)
[2021-11-06 17:37] LABS: EPI CELLS 28 /uL (0-25.1); HYALINE CASTS 6 /uL (0-3.1); PH,URINE 7.5 (5.0-8.0); URINE APPEARANCE CLEAR; URINE BACTERIA 32 /uL (0-1359); URINE BILIRUBIN NEGATIVE (NEGATIVE); URINE COLOR YELLOW; URINE GLUCOSE (UA) NEGATIVE (NEGATIVE); URINE KETONE TRACE (NEGATIVE); URINE LEUK ESTERASE NEGATIVE (NEGATIVE); URINE NITRITE NEGATIVE (NEGATIVE); URINE PROTEIN 2+ (NEGATIVE); URINE RBC 10 /uL (0-23.9); URINE WBC 8 /uL (0-25.8)
[2021-11-06] MEDS: ATORVASTATIN CA 40 MG TABLET (FP) PO SCH (21:50)
[2021-11-06] MEDS: THIAMINE HCL 100 MG TABLET (FP) PO SCH (21:51)
[2021-11-06] MEDS: IBUPROFEN 400 MG TABLET (FP) PO PRN (21:51)
[2021-11-06] MEDS: MELATONIN 5 MG TABLETS PO SCH (21:51)
[2021-11-07] MEDS: DOCUSATE SODIUM 100 MG CAPSULE (FP) PO SCH ×3 (06:59→21:43)
[2021-11-07] MEDS: PRENATAL VITAMINS W/ FOLIC ACID TABLET (FP) PO SCH (10:29)
[2021-11-07] MEDS: ASPIRIN COATED 81 MG TABLET.EC PO SCH (10:30)
[2021-11-07] MEDS: PANTOPRAZOLE 40 MG TABLET PO SCH (10:30)
[2021-11-07] MEDS: NICOTINE 14 MG/24 HOURS TOPICAL PATCH TD SCH (10:30)
[2021-11-07] MEDS: SULFAMETHOXAZOLE/TRIMETHOPRIM 800MG/160MG D.S. TABLET PO SCH ×2 (10:30→21:43)
[2021-11-07] MEDS: COLLAGENASE CLOSTRIDIUM HIST. 30 GRAMS TUBE TP SCH (10:31)
[2021-11-07] MEDS: NIFEdipine E.R 60 MG TABLET PO SCH (10:34)
[2021-11-07] MEDS: LISINOPRIL 20 MG TABLET PO SCH (11:14)
[2021-11-07] MEDS: THIAMINE HCL 100 MG TABLET (FP) PO SCH (21:43)
[2021-11-07] MEDS: MELATONIN 5 MG TABLETS PO SCH (21:43)
[2021-11-07] MEDS: ATORVASTATIN CA 40 MG TABLET (FP) PO SCH (21:43)
[2021-11-08] MEDS: DOCUSATE SODIUM 100 MG CAPSULE (FP) PO SCH ×3 (06:12→21:32)
[2021-11-08] MEDS: PRENATAL VITAMINS W/ FOLIC ACID TABLET (FP) PO SCH (09:48)
[2021-11-08] MEDS: NICOTINE 14 MG/24 HOURS TOPICAL PATCH TD SCH (09:48)
[2021-11-08] MEDS: PANTOPRAZOLE 40 MG TABLET PO SCH (09:49)
[2021-11-08] MEDS: LISINOPRIL 20 MG TABLET PO SCH (09:49)
[2021-11-08] MEDS: NIFEdipine E.R 60 MG TABLET PO SCH (09:49)
[2021-11-08] MEDS: ASPIRIN COATED 81 MG TABLET.EC PO SCH (09:49)
[2021-11-08] MEDS: COLLAGENASE CLOSTRIDIUM HIST. 30 GRAMS TUBE TP SCH (09:51)
[2021-11-08] MEDS: IBUPROFEN 400 MG TABLET (FP) PO PRN (12:04)
[2021-11-08] MEDS: THIAMINE HCL 100 MG TABLET (FP) PO SCH (21:32)
[2021-11-08] MEDS: MELATONIN 5 MG TABLETS PO SCH (21:32)
[2021-11-08] MEDS: ATORVASTATIN CA 40 MG TABLET (FP) PO SCH (21:32)
[2021-11-09] MEDS: DOCUSATE SODIUM 100 MG CAPSULE (FP) PO SCH ×3 (06:34→21:22)
[2021-11-09] MEDS: ASPIRIN COATED 81 MG TABLET.EC PO SCH (09:58)
[2021-11-09] MEDS: NIFEdipine E.R 60 MG TABLET PO SCH (09:58)
[2021-11-09] MEDS: PANTOPRAZOLE 40 MG TABLET PO SCH (09:58)
[2021-11-09] MEDS: PRENATAL VITAMINS W/ FOLIC ACID TABLET (FP) PO SCH (09:58)
[2021-11-09] MEDS: LISINOPRIL 20 MG TABLET PO SCH (09:58)
[2021-11-09] MEDS: COLLAGENASE CLOSTRIDIUM HIST. 30 GRAMS TUBE TP SCH (09:59)
[2021-11-09] MEDS: NICOTINE 14 MG/24 HOURS TOPICAL PATCH TD SCH (09:59)
[2021-11-09] MEDS: ATORVASTATIN CA 40 MG TABLET (FP) PO SCH (21:22)
[2021-11-09] MEDS: MELATONIN 5 MG TABLETS PO SCH (21:22)
[2021-11-09] MEDS: THIAMINE HCL 100 MG TABLET (FP) PO SCH (21:22)
[2021-11-10] MEDS: DOCUSATE SODIUM 100 MG CAPSULE (FP) PO SCH ×3 (05:57→21:17)
[2021-11-10] MEDS: COLLAGENASE CLOSTRIDIUM HIST. 30 GRAMS TUBE TP SCH (09:54)
[2021-11-10] MEDS: PANTOPRAZOLE 40 MG TABLET PO SCH (09:54)
[2021-11-10] MEDS: LISINOPRIL 20 MG TABLET PO SCH (09:54)
[2021-11-10] MEDS: ASPIRIN COATED 81 MG TABLET.EC PO SCH (09:54)
[2021-11-10] MEDS: PRENATAL VITAMINS W/ FOLIC ACID TABLET (FP) PO SCH (09:54)
[2021-11-10] MEDS: NICOTINE 14 MG/24 HOURS TOPICAL PATCH TD SCH (09:55)
[2021-11-10] MEDS: NIFEdipine E.R 60 MG TABLET PO SCH (09:55)
[2021-11-10] MEDS: ATORVASTATIN CA 40 MG TABLET (FP) PO SCH (21:17)
[2021-11-10] MEDS: MELATONIN 5 MG TABLETS PO SCH (21:17)
[2021-11-10] MEDS: THIAMINE HCL 100 MG TABLET (FP) PO SCH (21:17)
[2021-11-11] MEDS: DOCUSATE SODIUM 100 MG CAPSULE (FP) PO SCH ×3 (06:38→21:16)
[2021-11-11] MEDS: LISINOPRIL 20 MG TABLET PO SCH (09:50)
[2021-11-11] MEDS: PRENATAL VITAMINS W/ FOLIC ACID TABLET (FP) PO SCH (09:50)
[2021-11-11] MEDS: PANTOPRAZOLE 40 MG TABLET PO SCH (09:50)
[2021-11-11] MEDS: ASPIRIN COATED 81 MG TABLET.EC PO SCH (09:50)
[2021-11-11] MEDS: NICOTINE 14 MG/24 HOURS TOPICAL PATCH TD SCH (09:51)
[2021-11-11] MEDS: COLLAGENASE CLOSTRIDIUM HIST. 30 GRAMS TUBE TP SCH (09:51)
[2021-11-11] MEDS: NIFEdipine E.R 60 MG TABLET PO SCH (11:12)
[2021-11-11] MEDS: ATORVASTATIN CA 40 MG TABLET (FP) PO SCH (21:16)
[2021-11-11] MEDS: THIAMINE HCL 100 MG TABLET (FP) PO SCH (21:16)
[2021-11-11] MEDS: MELATONIN 5 MG TABLETS PO SCH (21:16)
[2021-11-12] MEDS: DOCUSATE SODIUM 100 MG CAPSULE (FP) PO SCH ×3 (05:54→21:19)
[2021-11-12] MEDS: ASPIRIN COATED 81 MG TABLET.EC PO SCH (10:10)
[2021-11-12] MEDS: PANTOPRAZOLE 40 MG TABLET PO SCH (10:10)
[2021-11-12] MEDS: LISINOPRIL 20 MG TABLET PO SCH (10:10)
[2021-11-12] MEDS: COLLAGENASE CLOSTRIDIUM HIST. 30 GRAMS TUBE TP SCH (10:10)
[2021-11-12] MEDS: NIFEdipine E.R 60 MG TABLET PO SCH (10:12)
[2021-11-12] MEDS: PRENATAL VITAMINS W/ FOLIC ACID TABLET (FP) PO SCH (10:12)
[2021-11-12] MEDS: NICOTINE 14 MG/24 HOURS TOPICAL PATCH TD SCH (10:12)
[2021-11-12] MEDS: MELATONIN 5 MG TABLETS PO SCH (21:19)
[2021-11-12] MEDS: ATORVASTATIN CA 40 MG TABLET (FP) PO SCH (21:19)
[2021-11-12] MEDS: THIAMINE HCL 100 MG TABLET (FP) PO SCH (21:19)
[2021-11-13] MEDS: DOCUSATE SODIUM 100 MG CAPSULE (FP) PO SCH ×3 (06:17→21:30)
[2021-11-13] MEDS: PRENATAL VITAMINS W/ FOLIC ACID TABLET (FP) PO SCH (10:12)
[2021-11-13] MEDS: ASPIRIN COATED 81 MG TABLET.EC PO SCH (10:13)
[2021-11-13] MEDS: PANTOPRAZOLE 40 MG TABLET PO SCH (10:13)
[2021-11-13] MEDS: LISINOPRIL 20 MG TABLET PO SCH (10:13)
[2021-11-13] MEDS: NIFEdipine E.R 60 MG TABLET PO SCH (10:14)
[2021-11-13] MEDS: COLLAGENASE CLOSTRIDIUM HIST. 30 GRAMS TUBE TP SCH (10:14)
[2021-11-13] MEDS: NICOTINE 14 MG/24 HOURS TOPICAL PATCH TD SCH (10:14)
[2021-11-13] MEDS: ATORVASTATIN CA 40 MG TABLET (FP) PO SCH (21:30)
[2021-11-13] MEDS: THIAMINE HCL 100 MG TABLET (FP) PO SCH (21:30)
[2021-11-13] MEDS: MELATONIN 5 MG TABLETS PO SCH (21:30)
[2021-11-14] MEDS: DOCUSATE SODIUM 100 MG CAPSULE (FP) PO SCH ×3 (06:29→21:29)
[2021-11-14] MEDS: LISINOPRIL 20 MG TABLET PO SCH (09:56)
[2021-11-14] MEDS: NICOTINE 14 MG/24 HOURS TOPICAL PATCH TD SCH (09:56)
[2021-11-14] MEDS: ASPIRIN COATED 81 MG TABLET.EC PO SCH (09:56)
[2021-11-14] MEDS: PRENATAL VITAMINS W/ FOLIC ACID TABLET (FP) PO SCH (09:56)
[2021-11-14] MEDS: PANTOPRAZOLE 40 MG TABLET PO SCH (09:57)
[2021-11-14] MEDS: COLLAGENASE CLOSTRIDIUM HIST. 30 GRAMS TUBE TP SCH (09:57)
[2021-11-14] MEDS: NIFEdipine E.R 60 MG TABLET PO SCH (09:57)
[2021-11-14] MEDS: MELATONIN 5 MG TABLETS PO SCH (21:28)
[2021-11-14] MEDS: ATORVASTATIN CA 40 MG TABLET (FP) PO SCH (21:29)
[2021-11-14] MEDS: THIAMINE HCL 100 MG TABLET (FP) PO SCH (21:29)
[2021-11-15] MEDS: DOCUSATE SODIUM 100 MG CAPSULE (FP) PO SCH ×3 (06:34→21:28)
[2021-11-15] MEDS: LISINOPRIL 20 MG TABLET PO SCH (10:18)
[2021-11-15] MEDS: NICOTINE 14 MG/24 HOURS TOPICAL PATCH TD SCH (10:18)
[2021-11-15] MEDS: NICOTINE 10 MG CARTRIDGE (INHALER) IH PRN ×2 (10:18→21:30)
[2021-11-15] MEDS: PRENATAL VITAMINS W/ FOLIC ACID TABLET (FP) PO SCH (10:18)
[2021-11-15] MEDS: PANTOPRAZOLE 40 MG TABLET PO SCH (10:19)
[2021-11-15] MEDS: NIFEdipine E.R 60 MG TABLET PO SCH (10:19)
[2021-11-15] MEDS: ASPIRIN COATED 81 MG TABLET.EC PO SCH (10:19)
[2021-11-15] MEDS: COLLAGENASE CLOSTRIDIUM HIST. 30 GRAMS TUBE TP SCH (10:19)
[2021-11-15] MEDS: ATORVASTATIN CA 40 MG TABLET (FP) PO SCH (21:28)
[2021-11-15] MEDS: THIAMINE HCL 100 MG TABLET (FP) PO SCH (21:28)
[2021-11-15] MEDS: MELATONIN 5 MG TABLETS PO SCH (21:29)
[2021-11-16] MEDS: DOCUSATE SODIUM 100 MG CAPSULE (FP) PO SCH ×3 (06:36→21:32)
[2021-11-16] MEDS: PRENATAL VITAMINS W/ FOLIC ACID TABLET (FP) PO SCH (10:06)
[2021-11-16] MEDS: LISINOPRIL 20 MG TABLET PO SCH (10:07)
[2021-11-16] MEDS: PANTOPRAZOLE 40 MG TABLET PO SCH (10:07)
[2021-11-16] MEDS: COLLAGENASE CLOSTRIDIUM HIST. 30 GRAMS TUBE TP SCH (10:07)
[2021-11-16] MEDS: NICOTINE 14 MG/24 HOURS TOPICAL PATCH TD SCH (10:07)
[2021-11-16] MEDS: ASPIRIN COATED 81 MG TABLET.EC PO SCH (10:07)
[2021-11-16] MEDS: NIFEdipine E.R 60 MG TABLET PO SCH (10:09)
[2021-11-16] MEDS: NICOTINE 10 MG CARTRIDGE (INHALER) IH PRN (10:12)
[2021-11-16] MEDS: IBUPROFEN 400 MG TABLET (FP) PO PRN (11:49)
[2021-11-16] MEDS: THIAMINE HCL 100 MG TABLET (FP) PO SCH (21:32)
[2021-11-16] MEDS: ATORVASTATIN CA 40 MG TABLET (FP) PO SCH (21:32)
[2021-11-16] MEDS: MELATONIN 5 MG TABLETS PO SCH (21:32)
[2021-11-17] MEDS: DOCUSATE SODIUM 100 MG CAPSULE (FP) PO SCH ×3 (05:54→21:30)
[2021-11-17] MEDS: ASPIRIN COATED 81 MG TABLET.EC PO SCH (10:15)
[2021-11-17] MEDS: PANTOPRAZOLE 40 MG TABLET PO SCH (10:16)
[2021-11-17] MEDS: LISINOPRIL 20 MG TABLET PO SCH (10:16)
[2021-11-17] MEDS: NICOTINE 14 MG/24 HOURS TOPICAL PATCH TD SCH (10:16)
[2021-11-17] MEDS: NIFEdipine E.R 60 MG TABLET PO SCH (10:16)
[2021-11-17] MEDS: PRENATAL VITAMINS W/ FOLIC ACID TABLET (FP) PO SCH (10:16)
[2021-11-17] MEDS: COLLAGENASE CLOSTRIDIUM HIST. 30 GRAMS TUBE TP SCH (10:17)
[2021-11-17] MEDS: NICOTINE 10 MG CARTRIDGE (INHALER) IH PRN ×2 (10:17→21:33)
[2021-11-17] MEDS: THIAMINE HCL 100 MG TABLET (FP) PO SCH (21:29)
[2021-11-17] MEDS: MELATONIN 5 MG TABLETS PO SCH (21:29)
[2021-11-17] MEDS: ATORVASTATIN CA 40 MG TABLET (FP) PO SCH (21:30)
[2021-11-18] MEDS: DOCUSATE SODIUM 100 MG CAPSULE (FP) PO SCH ×3 (06:09→21:29)
[2021-11-18] MEDS: PRENATAL VITAMINS W/ FOLIC ACID TABLET (FP) PO SCH (10:09)
[2021-11-18] MEDS: ASPIRIN COATED 81 MG TABLET.EC PO SCH (10:09)
[2021-11-18] MEDS: PANTOPRAZOLE 40 MG TABLET PO SCH (10:09)
[2021-11-18] MEDS: NIFEdipine E.R 60 MG TABLET PO SCH (10:10)
[2021-11-18] MEDS: NICOTINE 14 MG/24 HOURS TOPICAL PATCH TD SCH (10:10)
[2021-11-18] MEDS: COLLAGENASE CLOSTRIDIUM HIST. 30 GRAMS TUBE TP SCH (10:10)
[2021-11-18] MEDS: LISINOPRIL 20 MG TABLET PO SCH (10:10)
[2021-11-18] MEDS: NICOTINE 10 MG CARTRIDGE (INHALER) IH PRN (10:12)
[2021-11-18] MEDS: ATORVASTATIN CA 40 MG TABLET (FP) PO SCH (21:29)
[2021-11-18] MEDS: MELATONIN 5 MG TABLETS PO SCH (21:29)
[2021-11-18] MEDS: THIAMINE HCL 100 MG TABLET (FP) PO SCH (21:29)
[2021-11-19] MEDS: DOCUSATE SODIUM 100 MG CAPSULE (FP) PO SCH ×3 (06:16→21:30)
[2021-11-19] MEDS: IBUPROFEN 400 MG TABLET (FP) PO PRN (06:20)
[2021-11-19] MEDS: NICOTINE 10 MG CARTRIDGE (INHALER) IH PRN (07:20)
[2021-11-19] MEDS: ASPIRIN COATED 81 MG TABLET.EC PO SCH (10:07)
[2021-11-19] MEDS: PANTOPRAZOLE 40 MG TABLET PO SCH (10:07)
[2021-11-19] MEDS: PRENATAL VITAMINS W/ FOLIC ACID TABLET (FP) PO SCH (10:07)
[2021-11-19] MEDS: LISINOPRIL 20 MG TABLET PO SCH (10:07)
[2021-11-19] MEDS: NICOTINE 14 MG/24 HOURS TOPICAL PATCH TD SCH (10:07)
[2021-11-19] MEDS: NIFEdipine E.R 60 MG TABLET PO SCH ×2 (10:08→13:15)
[2021-11-19] MEDS: COLLAGENASE CLOSTRIDIUM HIST. 30 GRAMS TUBE TP SCH (10:11)
[2021-11-19] MEDS: THIAMINE HCL 100 MG TABLET (FP) PO SCH (21:30)
[2021-11-19] MEDS: MELATONIN 5 MG TABLETS PO SCH (21:30)
[2021-11-19] MEDS: ATORVASTATIN CA 40 MG TABLET (FP) PO SCH (21:30)
[2021-11-20] MEDS ORDERED: methaDONE HCL 10 MG TABLET PO SCH (06:00)
[2021-11-20] MEDS: DOCUSATE SODIUM 100 MG CAPSULE (FP) PO SCH ×3 (06:04→21:38)
[2021-11-20] MEDS: ASPIRIN COATED 81 MG TABLET.EC PO SCH (10:57)
[2021-11-20] MEDS: NICOTINE 14 MG/24 HOURS TOPICAL PATCH TD SCH (10:57)
[2021-11-20] MEDS: PANTOPRAZOLE 40 MG TABLET PO SCH (10:57)
[2021-11-20] MEDS: PRENATAL VITAMINS W/ FOLIC ACID TABLET (FP) PO SCH (10:57)
[2021-11-20] MEDS: LISINOPRIL 20 MG TABLET PO SCH (10:57)
[2021-11-20] MEDS: NIFEdipine E.R 60 MG TABLET PO SCH ×2 (10:58)
[2021-11-20] MEDS: COLLAGENASE CLOSTRIDIUM HIST. 30 GRAMS TUBE TP SCH (10:59)
[2021-11-20] MEDS: MELATONIN 5 MG TABLETS PO SCH (21:38)
[2021-11-20] MEDS: THIAMINE HCL 100 MG TABLET (FP) PO SCH (21:38)
[2021-11-20] MEDS: ATORVASTATIN CA 40 MG TABLET (FP) PO SCH (21:38)
[2021-11-20] MEDS: NICOTINE 10 MG CARTRIDGE (INHALER) IH PRN (21:40)
[2021-11-21] MEDS: DOCUSATE SODIUM 100 MG CAPSULE (FP) PO SCH ×3 (06:04→21:32)
[2021-11-21] MEDS: PANTOPRAZOLE 40 MG TABLET PO SCH (10:24)
[2021-11-21] MEDS: PRENATAL VITAMINS W/ FOLIC ACID TABLET (FP) PO SCH (10:25)
[2021-11-21] MEDS: ASPIRIN COATED 81 MG TABLET.EC PO SCH (10:25)
[2021-11-21] MEDS: LISINOPRIL 20 MG TABLET PO SCH (10:25)
[2021-11-21] MEDS: NIFEdipine E.R 60 MG TABLET PO SCH ×2 (10:25→10:26)
[2021-11-21] MEDS: NICOTINE 14 MG/24 HOURS TOPICAL PATCH TD SCH (10:26)
[2021-11-21] MEDS: COLLAGENASE CLOSTRIDIUM HIST. 30 GRAMS TUBE TP SCH (10:27)
[2021-11-21] MEDS: THIAMINE HCL 100 MG TABLET (FP) PO SCH (21:32)
[2021-11-21] MEDS: MELATONIN 5 MG TABLETS PO SCH (21:33)
[2021-11-21] MEDS: NICOTINE 10 MG CARTRIDGE (INHALER) IH PRN (21:33)
[2021-11-21] MEDS: ATORVASTATIN CA 40 MG TABLET (FP) PO SCH (21:33)
[2021-11-22] MEDS: DOCUSATE SODIUM 100 MG CAPSULE (FP) PO SCH ×3 (06:28→21:36)
[2021-11-22] MEDS: NICOTINE 14 MG/24 HOURS TOPICAL PATCH TD SCH (10:08)
[2021-11-22] MEDS: LISINOPRIL 20 MG TABLET PO SCH (10:08)
[2021-11-22] MEDS: NIFEdipine E.R 60 MG TABLET PO SCH ×2 (10:08→10:09)
[2021-11-22] MEDS: ASPIRIN COATED 81 MG TABLET.EC PO SCH (10:08)
[2021-11-22] MEDS: PRENATAL VITAMINS W/ FOLIC ACID TABLET (FP) PO SCH (10:08)
[2021-11-22] MEDS: PANTOPRAZOLE 40 MG TABLET PO SCH (10:08)
[2021-11-22] MEDS: NICOTINE 10 MG CARTRIDGE (INHALER) IH PRN ×2 (10:08→20:17)
[2021-11-22] MEDS: COLLAGENASE CLOSTRIDIUM HIST. 30 GRAMS TUBE TP SCH (10:10)
[2021-11-22] MEDS: ATORVASTATIN CA 40 MG TABLET (FP) PO SCH (21:36)
[2021-11-22] MEDS: THIAMINE HCL 100 MG TABLET (FP) PO SCH (21:36)
[2021-11-22] MEDS: MELATONIN 5 MG TABLETS PO SCH (21:36)
[2021-11-23] MEDS: DOCUSATE SODIUM 100 MG CAPSULE (FP) PO SCH ×3 (06:32→21:34)
[2021-11-23] MEDS: PRENATAL VITAMINS W/ FOLIC ACID TABLET (FP) PO SCH (10:10)
[2021-11-23] MEDS: PANTOPRAZOLE 40 MG TABLET PO SCH (10:11)
[2021-11-23] MEDS: ASPIRIN COATED 81 MG TABLET.EC PO SCH (10:11)
[2021-11-23] MEDS: LISINOPRIL 20 MG TABLET PO SCH (10:11)
[2021-11-23] MEDS: NICOTINE 14 MG/24 HOURS TOPICAL PATCH TD SCH (10:11)
[2021-11-23] MEDS: NIFEdipine E.R 60 MG TABLET PO SCH ×2 (10:12)
[2021-11-23] MEDS: COLLAGENASE CLOSTRIDIUM HIST. 30 GRAMS TUBE TP SCH (10:13)
[2021-11-23] MEDS: NICOTINE 10 MG CARTRIDGE (INHALER) IH PRN (17:14)
[2021-11-23] MEDS: MELATONIN 5 MG TABLETS PO SCH (21:33)
[2021-11-23] MEDS: ATORVASTATIN CA 40 MG TABLET (FP) PO SCH (21:34)
[2021-11-23] MEDS: THIAMINE HCL 100 MG TABLET (FP) PO SCH (21:34)
[2021-11-24] MEDS: DOCUSATE SODIUM 100 MG CAPSULE (FP) PO SCH ×4 (06:49→21:19)
[2021-11-24] MEDS: NICOTINE 10 MG CARTRIDGE (INHALER) IH PRN ×2 (07:13→21:19)
[2021-11-24] MEDS: LISINOPRIL 20 MG TABLET PO SCH (10:08)
[2021-11-24] MEDS: PRENATAL VITAMINS W/ FOLIC ACID TABLET (FP) PO SCH (10:08)
[2021-11-24] MEDS: ASPIRIN COATED 81 MG TABLET.EC PO SCH (10:08)
[2021-11-24] MEDS: PANTOPRAZOLE 40 MG TABLET PO SCH (10:08)
[2021-11-24] MEDS: NICOTINE 14 MG/24 HOURS TOPICAL PATCH TD SCH (10:08)
[2021-11-24] MEDS: NIFEdipine E.R 60 MG TABLET PO SCH (10:09)
[2021-11-24] MEDS: COLLAGENASE CLOSTRIDIUM HIST. 30 GRAMS TUBE TP SCH (10:09)
[2021-11-24] MEDS: ATORVASTATIN CA 40 MG TABLET (FP) PO SCH (21:19)
[2021-11-24] MEDS: THIAMINE HCL 100 MG TABLET (FP) PO SCH (21:19)
[2021-11-24] MEDS: MELATONIN 5 MG TABLETS PO SCH (21:19)
[2021-11-25] MEDS: DOCUSATE SODIUM 100 MG CAPSULE (FP) PO SCH ×3 (06:16→21:38)
[2021-11-25] MEDS: NICOTINE 10 MG CARTRIDGE (INHALER) IH PRN (06:21)
[2021-11-25] MEDS: PRENATAL VITAMINS W/ FOLIC ACID TABLET (FP) PO SCH (09:57)
[2021-11-25] MEDS: PANTOPRAZOLE 40 MG TABLET PO SCH (09:57)
[2021-11-25] MEDS: LISINOPRIL 20 MG TABLET PO SCH (09:57)
[2021-11-25] MEDS: ASPIRIN COATED 81 MG TABLET.EC PO SCH (09:57)
[2021-11-25] MEDS: NICOTINE 14 MG/24 HOURS TOPICAL PATCH TD SCH (09:57)
[2021-11-25] MEDS: COLLAGENASE CLOSTRIDIUM HIST. 30 GRAMS TUBE TP SCH (09:58)
[2021-11-25] MEDS: NIFEdipine E.R 60 MG TABLET PO SCH (09:58)
[2021-11-25] MEDS: THIAMINE HCL 100 MG TABLET (FP) PO SCH (21:38)
[2021-11-25] MEDS: MELATONIN 5 MG TABLETS PO SCH (21:38)
[2021-11-25] MEDS: ATORVASTATIN CA 40 MG TABLET (FP) PO SCH (21:38)
[2021-11-26] MEDS: DOCUSATE SODIUM 100 MG CAPSULE (FP) PO SCH ×4 (06:11→21:40)
[2021-11-26] MEDS: NICOTINE 10 MG CARTRIDGE (INHALER) IH PRN (10:03)
[2021-11-26] MEDS: LISINOPRIL 20 MG TABLET PO SCH (10:04)
[2021-11-26] MEDS: NICOTINE 14 MG/24 HOURS TOPICAL PATCH TD SCH (10:04)
[2021-11-26] MEDS: PANTOPRAZOLE 40 MG TABLET PO SCH (10:04)
[2021-11-26] MEDS: ASPIRIN COATED 81 MG TABLET.EC PO SCH (10:04)
[2021-11-26] MEDS: PRENATAL VITAMINS W/ FOLIC ACID TABLET (FP) PO SCH (10:04)
[2021-11-26] MEDS: COLLAGENASE CLOSTRIDIUM HIST. 30 GRAMS TUBE TP SCH (10:04)
[2021-11-26] MEDS: NIFEdipine E.R 60 MG TABLET PO SCH (10:05)
[2021-11-26] MEDS: ATORVASTATIN CA 40 MG TABLET (FP) PO SCH (21:40)
[2021-11-26] MEDS: MELATONIN 5 MG TABLETS PO SCH (21:40)
[2021-11-26] MEDS: THIAMINE HCL 100 MG TABLET (FP) PO SCH (21:40)
[2021-11-27] MEDS: NICOTINE 10 MG CARTRIDGE (INHALER) IH PRN (06:16)
[2021-11-27] MEDS: DOCUSATE SODIUM 100 MG CAPSULE (FP) PO SCH ×3 (06:16→21:52)
[2021-11-27 07:17] VITALS: TEMP 97.1
[2021-11-27] MEDS: PANTOPRAZOLE 40 MG TABLET PO SCH (09:29)
[2021-11-27] MEDS: LISINOPRIL 20 MG TABLET PO SCH (09:29)
[2021-11-27] MEDS: PRENATAL VITAMINS W/ FOLIC ACID TABLET (FP) PO SCH (09:29)
[2021-11-27] MEDS: ASPIRIN COATED 81 MG TABLET.EC PO SCH (09:29)
[2021-11-27] MEDS: NIFEdipine E.R 60 MG TABLET PO SCH (09:30)
[2021-11-27] MEDS: COLLAGENASE CLOSTRIDIUM HIST. 30 GRAMS TUBE TP SCH (09:31)
[2021-11-27] MEDS: NICOTINE 14 MG/24 HOURS TOPICAL PATCH TD SCH (09:31)
[2021-11-27] MEDS: THIAMINE HCL 100 MG TABLET (FP) PO SCH (21:52)
[2021-11-27] MEDS: ATORVASTATIN CA 40 MG TABLET (FP) PO SCH (21:52)
[2021-11-27] MEDS: MELATONIN 5 MG TABLETS PO SCH (21:53)
[2021-11-28] MEDS: DOCUSATE SODIUM 100 MG CAPSULE (FP) PO SCH (06:10)
[2021-11-28] MEDS: IBUPROFEN 400 MG TABLET (FP) PO PRN (06:14)
[2021-11-28] MEDS: NICOTINE 10 MG CARTRIDGE (INHALER) IH PRN (06:16)
[2021-11-28] MEDS: LISINOPRIL 20 MG TABLET PO SCH ×2 (08:36→09:25)
[2021-11-28] MEDS: ASPIRIN COATED 81 MG TABLET.EC PO SCH ×2 (08:36→09:25)
[2021-11-28] MEDS: NIFEdipine E.R 60 MG TABLET PO SCH ×2 (08:36→09:26)
[2021-11-28] MEDS: PRENATAL VITAMINS W/ FOLIC ACID TABLET (FP) PO SCH (09:23)
[2021-11-28] MEDS: NICOTINE 14 MG/24 HOURS TOPICAL PATCH TD SCH (09:23)
[2021-11-28] MEDS: COLLAGENASE CLOSTRIDIUM HIST. 30 GRAMS TUBE TP SCH (09:23)
[2021-11-28] MEDS: PANTOPRAZOLE 40 MG TABLET PO SCH (09:23)
[2021-11-28 10:26] VITALS: BP 155/98; PULSE 82
== END 2021-11-28 09:20 | disposition home or self-care (01) | DRG 772 ==
LOC: YASAS 18:47 → Y5N 19:41
PROVIDERS: ADMIT Allergy & Immunology; ATTEND Psychiatry & Neurology Pain Medicine
PROC: HZ42ZZZ Group Counseling for Substance Abuse Treatment, Cognitive-Behavioral (ICD-10-PCS; principal; 2021-10-31)
DX: F10.20 Alcohol dependence, uncomplicated (principal); F11.20 Opioid dependence, uncomplicated; F14.20 Cocaine dependence, uncomplicated; F12.20 Cannabis dependence, uncomplicated; F17.210 Nicotine dependence, cigarettes, uncomplicated; F19.282 Other psychoactive substance dependence with psychoactive substance-induced sleep disorder; F19.24 Other psychoactive substance dependence with psychoactive substance-induced mood disorder; L89.320 Pressure ulcer of left buttock, unstageable; L03.116 Cellulitis of left lower limb; I10 Essential (primary) hypertension; J45.20 Mild intermittent asthma, uncomplicated; K21.9 Gastro-esophageal reflux disease without esophagitis; K59.01 Slow transit constipation; E66.01 Morbid (severe) obesity due to excess calories; Z68.41 Body mass index [BMI] 40.0-44.9, adult; Z86.39 Personal history of other endocrine, nutritional and metabolic disease; Z99.89 Dependence on other enabling machines and devices; Z59.01 Sheltered homelessness
CPT/HCPCS: 36415; 80053; 81003; 82962; 85027; 86780; 86803; 87522; 87811; C9803-CS; U0003; U0005

== ENCOUNTER 2021-10-31 21:15 | Emergency (ER) | payer OTHER ==
[2021-10-31 22:06] VITALS: BMI 38.6
[2021-10-31] MEDS ORDERED: ACETAMINOPHEN 1000 MG/100 ML BAG IVPB ONE (22:26)
[2021-11-01] MEDS ORDERED: SULFAMETHOXAZOLE/TRIMETHOPRIM 800MG/160MG D.S. TABLET PO ONE (00:25)
[2021-11-01] MEDS ORDERED: SULFAMETHOXAZOLE/TRIMETHOPRIM 800MG/160MG D.S. TABLET ONE (00:27)
[2021-11-01 01:39] VITALS: BP 118/72; PULSE 77; RESP 20; TEMP 98.5
== END 2021-11-01 02:08 | disposition home or self-care (01) ==
LOC: JER 21:15
PROC: 3E033NZ Introduction of Analgesics, Hypnotics, Sedatives into Peripheral Vein, Percutaneous Approach (ICD-10-PCS; principal; 2021-10-31)
DX: L89.301 Pressure ulcer of unspecified buttock, stage 1 (principal); L03.317 Cellulitis of buttock
CPT/HCPCS: 93971-TC; 99284-25

== ENCOUNTER 2024-12-22 16:44 | Inpatient (IN) | payer OTHER ==
[2024-12-22 17:39] VITALS: BMI 43.9
[2024-12-22] MEDS ORDERED: NALOXONE (NARCAN) HCL 4 MG/0.1 ML SPRAY NS PRN (18:20)
[2024-12-22] MEDS ORDERED: NICOTINE POLACRILEX 2 MG GUM BUC PRN (18:20)
[2024-12-22] MEDS ORDERED: NICOTINE POLACRILEX 2 MG LOZENGE BC PRN (18:20)
[2024-12-22] MEDS ORDERED: IBUPROFEN 400 MG TABLET (FP) PO PRN (18:20)
[2024-12-22] MEDS ORDERED: guaiFENesin 600 MG TABLET.ER (FP) PO PRN (18:20)
[2024-12-22] MEDS ORDERED: LOPERAMIDE HCL 2 MG CAPSULE PO PRN (18:20)
[2024-12-22] MEDS ORDERED: BISMUTH SUBSALICYLATE 524 MG/30 ML PO PRN (18:20)
[2024-12-22] MEDS ORDERED: ACETAMINOPHEN 325 MG TABLET (FP) PO PRN (18:20)
[2024-12-22] MEDS ORDERED: BENZONATATE 200 MG CAPSULE PO PRN (18:20)
[2024-12-22] MEDS ORDERED: DICYCLOMINE HCL 10 MG CAPSULE PO PRN (18:20)
[2024-12-22] MEDS ORDERED: BENZOCAINE/MENTHOL (CHLORASEPTIC ) LOZENGE MM PRN (18:20)
[2024-12-22] MEDS ORDERED: DOCUSATE SODIUM 100 MG CAPSULE (FP) PO PRN (20:45)
[2024-12-22] MEDS ORDERED: PATIENT'S OWN MEDICATION (NON-FORMULARY) (Nifedipine [Nifedipine Er] 60 MG Tablet.Er) PO SCH (21:00)
[2024-12-22] MEDS: MELATONIN 5 MG TABLETS PO SCH (22:16)
[2024-12-22] MEDS: THIAMINE 100 MG TABLET PO SCH (22:16)
[2024-12-22] MEDS: LIDOCAINE PATCH REMOVAL MC SCH (22:17)
[2024-12-22] MEDS: ASPIRIN COATED 81 MG TABLET.EC PO SCH (22:17)
[2024-12-22] MEDS: ATORVASTATIN CA 40 MG TABLET (FP) PO SCH (22:17)
[2024-12-23] MEDS ORDERED: PANTOPRAZOLE 40 MG TABLET PO PRN (08:30)
[2024-12-23] MEDS: HYDROCHLOROTHIAZIDE 25 MG TABLET (FP) PO SCH (09:55)
[2024-12-23] MEDS: PRENATAL VITAMINS W/ FOLIC ACID TABLET (FP) PO SCH (09:55)
[2024-12-23] MEDS: NIFEdipine E.R 60 MG TABLET PO SCH (09:56)
[2024-12-23] MEDS: LISINOPRIL 20 MG TABLET PO SCH (09:56)
[2024-12-23] MEDS ORDERED: LIDOCAINE 5% TOPICAL PATCH TP PRN (10:00)
[2024-12-23 11:40] LABS: MCHC 33.1 g/dl (32.3-36.5); MEAN CELL VOLUME 90.7 fl (79.0-92.2); MEAN PLT VOLUME 10.1 fl (9.4-12.4); RDW 12.3 % (12.1-15.9)
[2024-12-23 12:13] LABS: GLUCOSE,RANDOM 160.0 mg/dL (74-106); TOT PROT 7.3 g/dl (6.4-8.2)
[2024-12-23 12:14] LABS: CO2 27.0 mmol/L (21-32)
[2024-12-23 12:16] LABS: ALK PHOS 83.0 U/L (40-150)
[2024-12-23 12:19] LABS: CREATININE 1.32 mg/dL (0.55-1.3); SGOT/AST 28.0 U/L (5-34); SGPT/ALT 18.0 U/L (0-55)
[2024-12-23] MEDS ORDERED: NIFEdipine E.R 60 MG TABLET PO ONE (14:00)
[2024-12-23] MEDS: NIFEdipine E.R. 30 MG TABLET PO ONE (14:04)
[2024-12-23] MEDS: MAG HYDROX/AL HYDROX/SIMETH 30 ML UNIT-DOSE CUP PO PRN (17:37)
[2024-12-23] MEDS: METHOCARBAMOL 500 MG TABLET PO PRN (18:30)
[2024-12-23] MEDS: IBUPROFEN 600 MG TABLET (FP) PO PRN (18:30)
[2024-12-23] MEDS: traZODone HCL 50 MG TABLET (FP) PO SCH (21:58)
[2024-12-23] MEDS ORDERED: NIFEdipine E.R 60 MG TABLET PO SCH (22:00)
[2024-12-24] MEDS: NIFEdipine E.R. 90 MG TABLET PO SCH (10:32)
[2024-12-24] MEDS: ALBUTEROL SO4 HFA INHALER IH PRN (17:37)
[2024-12-25] MEDS: MAGNESIUM HYDROX 2400MG/30ML ORAL SUSPENSION 30 ML CUP PO PRN (17:33)
[2024-12-25] MEDS: POLYETHYLENE GLYCOL (HEALTHYLAX) 3350 17 GM PACKET PO PRN (20:08)
[2024-12-26 10:28] LABS: CO2 29.0 mmol/L (21-32)
[2024-12-26 10:32] LABS: CREATININE 1.38 mg/dL (0.55-1.3)
[2024-12-26 11:11] LABS: GLUCOSE,RANDOM 94.0 mg/dL (74-106)
[2024-12-26] MEDS: LACTULOSE 20 GM/30 ML UDC (FOR ORAL USE ONLY) PO PRN (14:01)
[2024-12-29] MEDS: ONDANSETRON *ODT* 4 MG TABLET SL PRN (04:22)
[2024-12-29 06:47] VITALS: PULSE 96
[2024-12-29 09:38] VITALS: BP 122/78; RESP 18; TEMP 97.6
== END 2024-12-29 09:18 | disposition home or self-care (01) | DRG 773 ==
LOC: YASAS 16:44 → Y6N 19:52
PROVIDERS: ADMIT Neuromusculoskeletal Medicine & OMM; ATTEND Student in an Organized Health Care Education/Training Program
PROC: HZ2ZZZZ Detoxification Services for Substance Abuse Treatment (ICD-10-PCS; principal; 2024-12-22)
DX: F10.230 Alcohol dependence with withdrawal, uncomplicated (principal); F11.23 Opioid dependence with withdrawal; F14.20 Cocaine dependence, uncomplicated; F17.210 Nicotine dependence, cigarettes, uncomplicated; G89.29 Other chronic pain; I10 Essential (primary) hypertension; E78.5 Hyperlipidemia, unspecified; D64.9 Anemia, unspecified; R26.81 Unsteadiness on feet; E11.9 Type 2 diabetes mellitus without complications; K21.9 Gastro-esophageal reflux disease without esophagitis; J45.909 Unspecified asthma, uncomplicated; M54.2 Cervicalgia; E66.01 Morbid (severe) obesity due to excess calories; Z68.41 Body mass index [BMI] 40.0-44.9, adult
CPT/HCPCS: 36415; 80048; 80053; 80305; 80307; 82962; 85027; 86780; 93005; 93010; Q0162